=== PATIENT | female | born 1990 | race Caucasian/White ===

== ENCOUNTER 2016-12-01 10:37 | Emergency (ER) | payer OTHER ==
[~2016-12-01] VITALS: Ht 175.3 cm; Wt 115.1 kg
[2016-12-01 10:44] VITALS: TEMP 36.8; Ht 175.3 cm; Wt 115.1 kg
[2016-12-01] MEDS ORDERED: LORAZEPAM 0.5 MG TAB PO STA (10:54)
--- NOTE | 2016-12-01 11:02 | EMERGENCY ROOM VISIT NOTE ---
History Report prepared by Santana: Lena Borrego Under the Supervision of: Dr. Greer Valverde M.D. First contact with patient: 10:49 Chief Complaint: ANXIETY Stated Complaint: ANEXITY, DIZZY, SHAKING History of Present Illness The patient is a 26 year old female who presents to the Emergency Room with complaints of worsening anxiety. She reports she has been having increasing anxiety, and has run out of her Xanax since she was taking it 4 times a day, instead of the prescribed 3 times a day. She admits to last taking Xanax 3 days ago. Her primary care doctor, Dr. Pollack with [facility], could not see her today , so she states his office sent her here to the ED. She reports she does not follow with a psychiatrist because she has "been through it all before" and the last time she saw a psychiatrist was 8 years ago, when she was 18 years old. She admits to a rough childhood with having been through the foster care system when she was younger and states that is partly why she is afraid to go back to see someone, because therapy brings up bad memories. She notes her chest feels very tight like she cannot breathe because of her anxiety. She denies any recent ETOH as well any chance of being currently. 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 A total of 10 systems reviewed and were otherwise negative. Past Medical & Surgical Medical Problems: (1) Abdominal pain (2) Chest pain (3) Chest pain (4) Costochondritis (5) Costochondritis (6) Flu-like symptoms (7) Left wrist pain (8) Pain, dental (9) Urinary tract infection (10) Urinary tract infection (11) Uterine contractions at greater than 20 weeks of gestation Surgical Problems: (1) section (2) History of knee surgery (3) Hx of cholecystectomy Family History Cancer Gallbladder disease Hypertension Lung disease Social History Smoking Status: Current Every Day Smoker Alcohol Use: none Drug Use: none Marital Status: in relationship Housing Status: lives with significant other Occupation Status: employed Current/Historical Medications Scheduled Amitriptyline HCl (Amitriptyline HCl), 25 MG PO DAILY Scheduled PRN Albuterol Hfa (Ventolin Hfa), 2 PUFFS INH Q4H PRN for Cough or Wheezing Alprazolam (Alprazolam), 0.125-0.25 MG PO TID PRN for Anxiety Hydroxyzine Hcl (Atarax), 50 MG PO QID PRN for Anxiety Tramadol HCl (Tramadol HCl), 100 MG PO QID PRN for Pain Allergies Coded Allergies: Sulfa Antibiotics (Verified Allergy, Unknown, SEVERE DROWSINESS A CHILD , 11/21/16) Physical Exam Vital Signs Date Time Temp Pulse Resp B/P Pulse Ox O2 Delivery O2 Flow Rate FiO2 12/01/16 12:55 92 18 113/61 97 12/01/16 12:36 92 18 113/61 97 Room Air 12/01/16 10:44 36.8 122 18 126/85 97 Room Air Physical Exam Vital signs reviewed. General: Well-appearing 26 year old female, in no significant distress. HEENT: No scleral icterus, PERRLA, neck supple. Atraumatic. Cardiovascular: Regular rate and rhythm, no extra sounds. Pulmonary: Clear to auscultation bilaterally, normal work of breathing. Abdomen: Obese, soft, nontender, nondistended, positive bowel sounds. Musculoskeletal: Atraumatic, no peripheral edema. Neurologic: Patient awake alert and oriented x 3, full strength in all 4 extremities. Cranial nerves 2 through 12 grossly intact. Skin: Warm, dry, no rash Psychiatric: No suicidal or homicidal ideation. Medical Decision & Procedures Medications Administered Medications (Trade) Dose Ordered Sig/Ev Route Start Time Stop Time Status Last Admin Dose Admin Lorazepam (Ativan Tab) 0.5 mg NOW STAT PO 12/01/16 10:54 12/01/16 11:11 DC 12/01/16 11:06 0.5 MG Hydroxyzine HCl (Vistaril Tab) 50 mg NOW STAT PO 12/01/16 11:10 12/01/16 11:11 DC 12/01/16 11:25 50 MG Alprazolam (Xanax Tab) 0.25 mg ONE ONCE PO 12/01/16 11:30 12/01/16 11:31 DC 12/01/16 11:25 0.25 MG ED Course 1052: Past medical records reviewed. The patient was evaluated in room A6. A complete history and physical examination was performed. 1054: Ativan 0.5 mg PO. 1110: Vistaril 50 mg PO. 1130: Xanax 0.25 mg PO. 1220: I reevaluated the patient. She is feeling well. I discussed her results and discharge instructions and she verbalized complete understanding and agreement. Medical Decision Etiologies such as mood disorder, infection, hypoglycemia, electrolyte abnormalities, cardiac sources, intracerebral event, toxicologic, neurologic, as well as others were entertained. This patient was evaluated and appeared to be tearful and anxious, but in no significant distress. She was concerned about her lack of medications. She states she has been using Xanax more frequently than it is prescribed as she feels anxious. She was encouraged to see a psychiatrist, for which she was initially very resistant. The patient agreed to speak with case management. They were able to refer her as an outpatient. Patient was given Ativan 0.5 mg orally. Short while later she requested Xanax for which she was given 0.25 mg and 50 mg of Vistaril. She was advised not to drive after taking these medications. She was referred to outpatient psychiatry and will follow-up with her primary care provider for medication management. She will return to the ER for worsening of symptoms or any medical concerns. Impression Primary Impression: Anxiety Scribe Attestation The scribe's documentation has been prepared under my direction and personally reviewed by me in its entirety. I confirm that the note above accurately reflects all work, treatment, procedures, and medical decision making performed by me. Departure Information Dispostion Home / Self-Care Referrals Mickey Pollack III, M.D. (PCP) Patient Instructions A Signature Page, My [facility] Additional Instructions Diagnosis: Anxiety Follow-up with your physician as scheduled for reevaluation and medication refills. Follow-up with mental health outpatient appointment as scheduled. Return to the ER for worsening of symptoms or any medical concerns. Do not drive after receiving medications in the emergency department for at least 6 hours.
[2016-12-01] MEDS ORDERED: ALPRAZOLAM 0.25 MG TAB PO STA (11:10)
[2016-12-01] MEDS ORDERED: hydrOXYzine HCL 25 MG TAB PO STA (11:10)
[2016-12-01] MEDS ORDERED: ALPRAZOLAM 0.5 MG TAB PO ONE (11:30)
[2016-12-01 12:55] VITALS: BP 113/61; PULSE 92; O2SAT 97
[2017-01-28] MEDS ORDERED: AMT25 PO (11:01)
== END 2016-12-01 12:58 | disposition home or self-care (01) ==
LOC: C.EDB 10:39 → C.EDA 12:58
DX: F41.9 Anxiety disorder, unspecified (principal); F17.210 Nicotine dependence, cigarettes, uncomplicated; Z80.9 Family history of malignant neoplasm, unspecified; Z83.79 Family history of other diseases of the digestive system; Z83.6 Family history of other diseases of the respiratory system; Z82.49 Family history of ischemic heart disease and other diseases of the circulatory system; Z79.899 Other long term (current) drug therapy

== ENCOUNTER 2016-12-29 14:30 | Emergency (ER) | payer OTHER ==
[~2016-12-29] VITALS: Ht 175.3 cm; Wt 115.9 kg
[2016-12-29 14:34] VITALS: TEMP 36.5; Ht 175.3 cm; Wt 115.9 kg
--- NOTE | 2016-12-29 15:31 | EMERGENCY ROOM VISIT NOTE ---
History Report prepared by Santana: Lena Borrego Under the Supervision of: Dr. Greer Valverde M.D. First contact with patient: 15:20 Chief Complaint: MENTAL HEALTH EVALUATION Stated Complaint: DIZZINESS,ANXIETY History of Present Illness The patient is a 26 year old female who presents to the Emergency Room with complaints of worsening anxiety. She reports her son's parents took away custody from her today, stating she was "not involved in his life". The patient has 2 other children, who have been adopted into new homes. She does outpatient therapy for a history of anxiety and depression and was recently placed on Propranolol, of which she has taken 1 dose. She denies any recent suicidal or homicidal ideation. Her PCP is Dr. Pollack with [facility]. She reports he had been giving her a prescription for Xanax, but her insurance recently stopped paying for it, so she only has about 10 pills left. She took 1 Xanax last night , but denies taking anything today. She notes the Xanax has also "stopped working". The patient denies any recent marijuana or ETOH use. 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 A total of 10 systems reviewed and were otherwise negative. Past Medical & Surgical Medical Problems: (1) Abdominal pain (2) Chest pain (3) Chest pain (4) Costochondritis (5) Costochondritis (6) Flu-like symptoms (7) Left wrist pain (8) Pain, dental (9) Urinary tract infection (10) Urinary tract infection (11) Uterine contractions at greater than 20 weeks of gestation Surgical Problems: (1) section (2) History of knee surgery (3) Hx of cholecystectomy Family History Cancer Gallbladder disease Hypertension Lung disease Social History Smoking Status: Current Every Day Smoker Alcohol Use: none Drug Use: none Marital Status: in relationship Housing Status: lives with significant other Occupation Status: employed Current/Historical Medications Scheduled Amitriptyline HCl (Amitriptyline HCl), 25 MG PO DAILY Scheduled PRN Albuterol Hfa (Ventolin Hfa), 2 PUFFS INH Q4H PRN for Cough or Wheezing Alprazolam (Alprazolam), 0.125-0.25 MG PO TID PRN for Anxiety Hydroxyzine Hcl (Atarax), 50 MG PO QID PRN for Anxiety Tramadol HCl (Tramadol HCl), 50 MG PO QID PRN for Pain Allergies Coded Allergies: Sulfa Antibiotics (Verified Allergy, Unknown, SEVERE DROWSINESS A CHILD , 12/29/16) Physical Exam Vital Signs Date Time Temp Pulse Resp B/P Pulse Ox O2 Delivery O2 Flow Rate FiO2 12/29/16 17:25 98 16 118/78 98 12/29/16 14:34 36.5 118 19 142/72 99 Room Air Physical Exam Vital signs reviewed. General: Well-appearing, obese 20 year old female, in no significant distress. HEENT: No scleral icterus, PERRLA, neck supple. Atraumatic. Cardiovascular: Regular rate and rhythm, no extra sounds. Pulmonary: Clear to auscultation bilaterally, normal work of breathing. Abdomen: Soft, nontender, nondistended, positive bowel sounds. Musculoskeletal: Atraumatic, no peripheral edema. Neurologic: Patient awake alert and oriented x 3 Skin: Warm, dry, no rash Medical Decision & Procedures Laboratory Results 12/29/16 15:55 Red Blood Count 4.98, Mean Corpuscular Volume 80.5, Mean Corpuscular Hemoglobin 27.3, Mean Corpuscular Hemoglobin Concent 33.9, Mean Platelet Volume 9.4, Neutrophils (%) (Auto) 69.9, Lymphocytes (%) (Auto) 22.3, Monocytes (%) (Auto) 5.8, Eosinophils (%) (Auto) 1.4, Basophils (%) (Auto) 0.3, Neutrophils # (Auto) 5.59, Lymphocytes # (Auto) 1.78, Monocytes # (Auto) 0.46, Eosinophils # (Auto) 0.11, Basophils # (Auto) 0.02 12/29/16 15:55 Test 12/29/16 00:00 12/29/16 15:55 Urine Color YELLOW Urine Appearance CLEAR (CLEAR) Urine pH 6.0 (4.5-7.5) Urine Specific [place] 1.025 (1.000-1.030) Urine Protein 1+ (NEG) Urine Glucose (UA) NEG (NEG) Urine Ketones NEG (NEG) Urine Occult Blood NEG (NEG) Urine Nitrite NEG (NEG) Urine Bilirubin NEG (NEG) Urine Urobilinogen NEG (NEG) Urine Leukocyte Esterase TRACE (NEG) Urine WBC (Auto) 1-5 /hpf (0-5) Urine RBC (Auto) 0-4 /hpf (0-4) Urine Hyaline Casts (Auto) 1-5 /lpf (0-5) Urine Epithelial Cells (Auto) >30 /lpf (0-5) Urine Bacteria (Auto) NEG (NEG) Urine Opiates Screen NEG (NEG) Urine Methadone, Qualitative NEG (NEG) Urine Barbiturates NEG (NEG) Urine Phencyclidine (PCP) Level NEG (NEG) Ur Amphetamine/Methamphetamine NEG (NEG) MDMA (Ecstasy) Screen NEG (NEG) Urine Benzodiazepines Screen POS (NEG) Urine Cocaine Metabolite NEG (NEG) Urine Marijuana (THC) NEG (NEG) White Blood Count 7.98 K/uL (4.8-10.8) Red Blood Count 4.98 M/uL (4.2-5.4) Hemoglobin 13.6 g/dL (12.0-16.0) Hematocrit 40.1 % (37-47) Mean Corpuscular Volume 80.5 fL (80-100) Mean Corpuscular Hemoglobin 27.3 pg (25-34) Mean Corpuscular Hemoglobin Concent 33.9 g/dl (32-36) Platelet Count 257 K/uL (130-400) Mean Platelet Volume 9.4 fL (7.4-10.4) Neutrophils (%) (Auto) 69.9 % Lymphocytes (%) (Auto) 22.3 % Monocytes (%) (Auto) 5.8 % Eosinophils (%) (Auto) 1.4 % Basophils (%) (Auto) 0.3 % Neutrophils # (Auto) 5.59 K/uL (1.4-6.5) Lymphocytes # (Auto) 1.78 K/uL (1.2-3.4) Monocytes # (Auto) 0.46 K/uL (0.11-0.59) Eosinophils # (Auto) 0.11 K/uL (0-0.5) Basophils # (Auto) 0.02 K/uL (0-0.2) RDW Standard Deviation 41.9 fL (36.4-46.3) RDW Coefficient of Variation 14.4 % (11.5-14.5) Immature Granulocyte % (Auto) 0.3 % Immature Granulocyte # (Auto) 0.02 K/uL (0.00-0.02) Anion Gap 10.0 mmol/L (3-11) Est Creatinine Clear Calc Drug Dose 152.5 ml/min Estimated GFR () 125.5 Estimated GFR (Non- 108.3 BUN/Creatinine Ratio 15.4 (10-20) Calcium Level 8.9 mg/dl (8.5-10.1) Total Bilirubin 0.2 mg/dl (0.2-1) Direct Bilirubin < 0.1 mg/dl (0-0.2) Aspartate Amino Transf (AST/SGOT) 28 U/L (15-37) Alanine Aminotransferase (ALT/SGPT) 58 U/L (12-78) Alkaline Phosphatase 66 U/L (45-117) Total Protein 7.8 gm/dl (6.4-8.2) Albumin 3.9 gm/dl (3.4-5.0) Salicylates Level 1.7 mg/dl (2.8-20) Acetaminophen Level < 2 ug/ml (10-30) Ethyl Alcohol mg/dL < 3.0 mg/dl (0-3) Laboratory results per my review. Medications Administered Medications (Trade) Dose Ordered Sig/Ev Route Start Time Stop Time Status Last Admin Dose Admin Diphenhydramine HCl (Benadryl Cap) 50 mg NOW ONCE PO 12/29/16 15:45 12/29/16 15:46 DC 12/29/16 15:51 50 MG ED Course 1525: Past medical records reviewed. The patient was evaluated in room A8. A complete history and physical examination was performed. 1545: Benadryl 50 mg PO. 1721: Nursing informed me the patient is feeling well and has a ride coming to get her around 1600. 1730: I reevaluated the patient. She is feeling well. I discussed her results and discharge instructions and she verbalized complete understanding and agreement. Medical Decision Differential diagnosis: Etiologies such as mood disorder, infection, hypoglycemia, electrolyte abnormalities, cardiac sources, intracerebral event, toxicologic, neurologic, as well as others were entertained. This patient was evaluated and appeared to be in no significant distress. Physical examination is fairly unrevealing. Patient was given 50 mg of oral Benadryl. She was medically cleared and evaluated by the psychiatric casework specialist. Patient is not suicidal, not homicidal does desire discharge. I suspect she is having some acute on chronic anxiety related to the loss of custody of her son. Patient was discharged follow-up with her mental health counselors. She will return to the ER for worsening of symptoms or any medical concerns. Impression Primary Impression: Acute anxiety Scribe Attestation The scribe's documentation has been prepared under my direction and personally reviewed by me in its entirety. I confirm that the note above accurately reflects all work, treatment, procedures, and medical decision making performed by me. Departure Information Dispostion Home / Self-Care Referrals Mickey Pollack III, M.D. (PCP) Patient Instructions My [facility] Additional Instructions Diagnosis: Anxiety Drink plenty of fluids. Follow up with your doctor this week for reevaluation. Return to emergency for worsening of symptoms or any medical concerns.
[2016-12-29 16:06] LABS: BASO % 0.3 %; BASO ABS # 0.02 K/uL (0-0.2); COMPLETE YES; EOS % 1.4 %; HEMATOCRIT 40.1 % (37-47); IG% 0.3 %; LYMPH % 22.3 %; LYMPH ABS # 1.78 K/uL (1.2-3.4); MEAN CELL VOLUME 80.5 fL (80-100); MEAN CORPUSCULAR HEMOGLOBIN 27.3 pg (25-34); MEAN CORPUSCULAR HGB CONC 33.9 g/dl (32-36); MEAN PLATELET VOLUME 9.4 fL (7.4-10.4); MONO % 5.8 %; NEUT % 69.9 %; PLATELET COUNT 257 K/uL (130-400); RED BLOOD COUNT 4.98 M/uL (4.2-5.4); WHITE BLOOD COUNT 7.98 K/uL (4.8-10.8)
[2016-12-29 16:09] LABS: URINE APPEARANCE CLEAR (CLEAR); URINE BILIRUBIN NEG (NEG); URINE COLOR YELLOW; URINE EPITHELIAL CELL AUTO >30 /lpf (0-5); URINE NITRITE NEG (NEG); URINE SPECIFIC GRAVITY 1.025 (1.000-1.030); UROBILINOGEN NEG (NEG); ZZUR CULT IF INDIC CLEAN CATCH NO
[2016-12-29 16:10] LABS: MANUAL MICROSCOPIC REQUIRED? NO; REVIEW REQ? YES
[2016-12-29 16:28] LABS: ALT/SGPT 58 U/L (12-78); AST/SGOT 28 U/L (15-37); BLOOD UREA NITROGEN 12 mg/dl (7-18); BUN/CREATININE RATIO 15.4 (10-20); CALCIUM 8.9 mg/dl (8.5-10.1); CARBON DIOXIDE 21 mmol/L (21-32); CHLORIDE 109 mmol/L (98-107); CREATININE 0.76 mg/dl (0.60-1.20); GLUCOSE 123 mg/dl (70-99); POTASSIUM 4.2 mmol/L (3.5-5.1); SODIUM 140 mmol/L (136-145)
[2016-12-29 16:28] LABS: BENZODIAZEPINE, URINE POS (NEG); COCAINE,URINE NEG (NEG); PHENCYCLIDINE, URINE NEG (NEG)
[2016-12-29 16:32] LABS: ALKALINE PHOSPHATASE 66 U/L (45-117)
[2016-12-29 16:40] LABS: ACETAMINOPHEN < 2 ug/ml (10-30)
[2016-12-29 17:25] VITALS: BP 118/78; PULSE 98; O2SAT 98
[2017-01-02 16:00] LABS: HYDROXYETHYLFLURAZEPAM CONF NEGATIVE NG/ML (CUTOFF=50); HYDROXYMIDAZOLAM NEGATIVE NG/ML (CUTOFF=50); HYDROXYTRIAZOLAM CONF NEGATIVE NG/ML (CUTOFF=50); TEMAZEPAM CONF 56 NG/ML (CUTOFF=50)
[2017-01-28] MEDS ORDERED: AMT25 PO (11:01)
== END 2016-12-29 17:55 | disposition home or self-care (01) ==
LOC: C.EDB 14:33 → C.EDA 17:55
DX: F41.9 Anxiety disorder, unspecified (principal); F32.9 Major depressive disorder, single episode, unspecified; Z79.899 Other long term (current) drug therapy; Z87.440 Personal history of urinary (tract) infections; Z90.49 Acquired absence of other specified parts of digestive tract; F17.210 Nicotine dependence, cigarettes, uncomplicated; E66.9 Obesity, unspecified

== ENCOUNTER 2017-01-06 15:31 | Emergency (ER) | payer SELFPAY ==
[~2017-01-06] VITALS: Ht 175.3 cm; Wt 117.0 kg
[2017-01-06 15:36] VITALS: BP 120/75; PULSE 93; TEMP 36.9; O2SAT 96; Ht 175.3 cm; Wt 117.0 kg
[2017-01-06] MEDS ORDERED: HYDROCODONE/ACETAMOPHEN 5/325MG TAB PO STA (15:41)
--- NOTE | 2017-01-06 15:58 | EMERGENCY ROOM VISIT NOTE ---
ED Visit Note First contact with patient: 15:39 CHIEF COMPLAINT: Left thumb infection HISTORY of present illness: This 26-year-old female presents the ER with chief complaint of pain and swelling of the left thumb which she noticed this morning. Doesn't remember any injury to the area before it got swollen and tender. REVIEW OF SYSTEMS: 6 system review was performed and was negative unless stated otherwise in history of present illness. PMH: The patient is healthy; asthma, cholecystectomy, 3 C-sections SOCIAL HISTORY: Patient lives with her boyfriend. The patient admits to back use but denies any alcohol use. PHYSICAL EXAM: Vital Signs: Were reviewed Reviewed Nurse's notes. GEN.: 26-year -old white female appears in no acute distress. MENTAL Status: Alert and oriented 3. LEFT THUMB: There is swelling and tenderness of the nail fold around the finger. There is a small area of fluctuance. No drainage. There is no pus under the nail. There is no lymphangitic streaking up the hand. EMERGENCY COURSE: Patient was evaluated. The patient was given [place] 5/325 mg 1 pill appear for pain. The fingers prepped with Betadine. I placed the 18- gauge needle into the area with only a small amount of drainage and blood. Antibiotic ointment and a bandage was applied. The patient was given Keflex 500 mg by mouth. DIAGNOSIS: Paronychia of the left thumb DISCHARGE INSTRUCTIONS: Soak the finger in hot water 4 times a day for 20 minutes each, take Keflex 500 mg 4 times a day for 7 days. Ibuprofen 600 mg every 6 hours as needed for pain. If symptoms are not improving, follow-up with your family physician. Problem List Medical Problems: (1) Abdominal pain Status: Resolved (2) Chest pain Status: Resolved (3) Chest pain Status: Resolved (4) Costochondritis Status: Resolved (5) Costochondritis Status: Resolved (6) Flu-like symptoms Status: Resolved (7) Left wrist pain Status: Resolved (8) Pain, dental Status: Resolved (9) Urinary tract infection Status: Resolved (10) Urinary tract infection Status: Resolved Surgical Problems: (1) section Status: Resolved (2) History of knee surgery Status: Resolved (3) Hx of cholecystectomy Status: Chronic Current/Historical Medications Scheduled Amitriptyline HCl (Amitriptyline HCl), 25 MG PO DAILY Scheduled PRN Albuterol Hfa (Ventolin Hfa), 2 PUFFS INH Q4H PRN for Cough or Wheezing Alprazolam (Alprazolam), 0.125-0.25 MG PO TID PRN for Anxiety Hydroxyzine Hcl (Atarax), 50 MG PO QID PRN for Anxiety Tramadol HCl (Tramadol HCl), 50 MG PO QID PRN for Pain Allergies Coded Allergies: Sulfa Antibiotics (Verified Allergy, Unknown, SEVERE DROWSINESS A CHILD , 12/29/16) Vital Signs Date Time Temp Pulse Resp B/P Pulse Ox O2 Delivery O2 Flow Rate FiO2 01/06/17 15:36 36.9 93 16 120/75 96 Room Air Medications Administered Medications (Trade) Dose Ordered Sig/Ev Route Start Time Stop Time Status Last Admin Dose Admin Acetaminophen/ Hydrocodone Bitart ([place] 5/325 Tab) 1 tab NOW STAT PO 01/06/17 15:41 01/06/17 15:43 DC 01/06/17 15:50 1 TAB Departure Information Referrals Mickey Pollack III, M.D. (PCP) Patient Instructions My [facility]
[2017-01-06] MEDS ORDERED: CEPHALEXIN MONOHYDRATE 250 MG CAP PO ONE (16:00)
[2017-01-06] MEDS ORDERED: CEPH500C2 PO (16:00)
[2017-01-28] MEDS ORDERED: AMT25 PO (11:01)
== END 2017-01-06 16:12 | disposition home or self-care (01) ==
LOC: C.EDB 15:33 → C.EDD 16:12
DX: L03.012 Cellulitis of left finger (principal); J45.909 Unspecified asthma, uncomplicated; F17.210 Nicotine dependence, cigarettes, uncomplicated; Z79.899 Other long term (current) drug therapy

== ENCOUNTER 2017-01-12 10:28 | Emergency (ER) | payer SELFPAY ==
[~2017-01-12] VITALS: Ht 175.3 cm; Wt 120.0 kg
[~2017-01-12 10:28] MED LIST: CEPH500C2 PO
[2017-01-12 10:34] VITALS: TEMP 36.8; Ht 175.3 cm; Wt 120.0 kg
--- NOTE | 2017-01-12 11:15 | DIAGNOSTIC IMAGING REPORT ---
LEFT KNEE 3 VIEWS CLINICAL HISTORY: Left knee pain. Fall. FINDINGS: AP, crosstable lateral, and sunrise views of left knee are compared to study dated 11/21/2016. The skeletal structures are well mineralized. No fracture is seen. A surgical anchor is noted in the patella. The joint spaces of the knee are well-maintained. A small joint effusion is suspected. The overlying soft tissues are normal as imaged. IMPRESSION: 1. No acute bony abnormality is seen in the left knee. 2. Suspect a small joint effusion. A surgical anchor is again noted in the patella. Electronically signed by: Chucky Mcclain M.D. 01/12/2017 11:14 AM Dictated Date/Time: 01/12/2017 11:12 AM
[2017-01-12 12:20] VITALS: BP 130/78; PULSE 79; O2SAT 98
--- NOTE | 2017-01-12 12:53 | EMERGENCY ROOM VISIT NOTE ---
History First contact with patient: 10:44 Chief Complaint: KNEEPAIN Stated Complaint: LEFT KNEE PAIN, INTO BACK, FELL History of Present Illness The patient is a 26 year old female who presents to the Emergency Room with complaints of persistent left knee pain. The patient reports that she underwent surgery with Dr. Pradhan in 2010. The patient reports that she had a radha put in her knee. She does not know what kind of surgery she had performed. The patient reports that she has had constant pain since the surgery. She has been attempting to see another orthopedic surgeon locally, but no one will see her after looking at her records. The patient reports that she is currently looking at an evaluation at [facility] in [place]. They told the patient that she would need an MRI before they would evaluate her. She was referred by her PCP, Dr. Pollack, for further evaluation. The patient denies any recent illnesses, fevers or chills. She reports twisting her knee last night while getting out of her car. She currently denies any back pain or pain extending into the thigh, ankle or foot. She rates her discomfort a 10 out of 10. Review of Systems 10 system review was performed and was negative except for pertinent positives and negatives as indicated in history of present illness Past Medical/Surgical History Medical Problems: (1) Abdominal pain (2) Chest pain (3) Chest pain (4) Costochondritis (5) Costochondritis (6) Flu-like symptoms (7) Left wrist pain (8) Pain, dental (9) Urinary tract infection (10) Urinary tract infection (11) Uterine contractions at greater than 20 weeks of gestation Surgical Problems: (1) section (2) History of knee surgery (3) Hx of cholecystectomy Family History Cancer Gallbladder disease Hypertension Lung disease Social History Smoking Status: Current Every Day Smoker Alcohol Use: none Drug Use: none Marital Status: in relationship Housing Status: lives with significant other Occupation Status: employed Current/Historical Medications Scheduled Amitriptyline HCl (Amitriptyline HCl), 25 MG PO DAILY Scheduled PRN Albuterol Hfa (Ventolin Hfa), 2 PUFFS INH Q4H PRN for Cough or Wheezing Alprazolam (Alprazolam), 0.125-0.25 MG PO TID PRN for Anxiety Hydroxyzine Hcl (Atarax), 50 MG PO QID PRN for Anxiety Tramadol HCl (Tramadol HCl), 50 MG PO QID PRN for Pain Allergies Coded Allergies: Sulfa Antibiotics (Verified Allergy, Unknown, SEVERE DROWSINESS A CHILD , 01/12/17) Physical Exam Vital Signs Date Time Temp Pulse Resp B/P Pulse Ox O2 Delivery O2 Flow Rate FiO2 01/12/17 12:20 79 16 130/78 98 01/12/17 10:34 36.8 104 18 122/66 97 Room Air Physical Exam CONSTITUTIONAL: Healthy and well nourished. Alert and oriented X 3 with a flat affect. HEENT: Normocephalic, atraumatic. Pupils equal, round and reactive. NECK: Full active range of motion without discomfort. RESPIRATORY: Clear to auscultation bilaterally with no wheezing, crackles, rhonchi or stridor. MUSCULOSKELETAL: Examination of the left knee does not show any soft tissue edema, erythema or ecchymosis. No joint effusion appreciated. She has general tenderness to palpation about the entire knee. No popliteal masses. No tenderness to palpation about the ankle or foot. Pedal pulses are intact. INTEGUMENTARY: No rash or other significant dermatologic conditions noted. NEUROLOGIC: Left lower extremity is sensory intact. Medical Decision & Procedures ER Provider Diagnostic Interpretation: My interpretation of left knee x-rays shows a surgical anchor within the patella. A possible small joint effusion is noted. No other bony injuries, patellar subluxation/dislocation or knee malalignment noted. Radiologist report is as follows: LEFT KNEE 3 VIEWS CLINICAL HISTORY: Left knee pain. Fall. FINDINGS: AP, crosstable lateral, and sunrise views of left knee are compared to study dated 11/21/2016. The skeletal structures are well mineralized. No fracture is seen. A surgical anchor is noted in the patella. The joint spaces of the knee are well-maintained. A small joint effusion is suspected. The overlying soft tissues are normal as imaged. IMPRESSION: 1. No acute bony abnormality is seen in the left knee. 2. Suspect a small joint effusion. A surgical anchor is again noted in the patella. ED Course Patient history and physical exam were performed. Nurse's notes were reviewed. Patient was initially placed in the D pod waiting room. Initial x-rays were ordered for the knee. I was advised by the nurse that the patient called the [facility] communication center asking for pain medication. The patient underwent x- ray of the left knee, showing no acute findings. Further history was collected from the patient, who reports that no one will see her for her pain. She was asked that she has been taking a medicine for the pain, and denies. Prior hospital medical records were reviewed, showing that she is here on multiple occasions for various complaints. It is also noted that the patient is currently on our no narcotic treatment list after lying about not having prescription analgesics. Review of the [place] Prescription Drug Monitoring Program shows that she does receive monthly prescriptions for tramadol as prescribed by Dr. Pollack. The patient was advised that she would not be receiving any narcotic analgesics. The patient was asked and reports that she does have crutches at home. She was encouraged to intermittently apply ice and limit weightbearing until her symptoms improve. She was instructed to follow-up with her PCP for further management, including pain management, and tilt she follows up with [facility] orthopedics. The patient rated her discomfort an 8 out of 10 at the time of discharge. She refused any ibuprofen or Tylenol. Medical Decision Impression Primary Impression: Acute exacerbation of chronic left knee pain Departure Information Referrals Mickey Pollack III, M.D. (PCP) Patient Instructions My [facility]
[2017-01-28] MEDS ORDERED: AMT25 PO (11:01)
== END 2017-01-12 12:33 | disposition home or self-care (01) ==
LOC: C.EDB 10:29 → C.EDD 12:33
DX: M25.562 Pain in left knee (principal); G89.29 Other chronic pain; F17.200 Nicotine dependence, unspecified, uncomplicated; Z87.440 Personal history of urinary (tract) infections; Z86.19 Personal history of other infectious and parasitic diseases; Z79.899 Other long term (current) drug therapy; Z90.49 Acquired absence of other specified parts of digestive tract; Z98.890 Other specified postprocedural states; Z88.2 Allergy status to sulfonamides; Z80.9 Family history of malignant neoplasm, unspecified; Z83.79 Family history of other diseases of the digestive system; Z82.49 Family history of ischemic heart disease and other diseases of the circulatory system

== ENCOUNTER 2017-01-28 22:22 | Emergency (ER) | payer OTHER ==
[~2017-01-28] VITALS: Ht 175.3 cm; Wt 118.0 kg
[~2017-01-28 22:22] MED LIST changes: +AMT25 PO; -CEPH500C2 PO
[2017-01-28 22:24] VITALS: TEMP 37.3; Ht 175.3 cm; Wt 118.0 kg
[2017-01-28] MEDS ORDERED: ONDANSETRON INJ 2 MG/ML 2 ML VIAL IV STA (22:37)
[2017-01-28] MEDS ORDERED: MoRPHine SULFATE 10 MG/ML CARP/VIAL IV STA (22:37)
[2017-01-28] MEDS ORDERED: IBUPROFEN 600 MG TAB PO STA (22:42)
[2017-01-28 23:15] LABS: BASO % 0.3 %; BASO ABS # 0.04 K/uL (0-0.2); COMPLETE YES; EOS % 1.1 %; HEMATOCRIT 38.1 % (37-47); IG% 0.3 %; LYMPH % 19.6 %; LYMPH ABS # 2.99 K/uL (1.2-3.4); MEAN CELL VOLUME 80.2 fL (80-100); MEAN CORPUSCULAR HEMOGLOBIN 27.2 pg (25-34); MEAN CORPUSCULAR HGB CONC 33.9 g/dl (32-36); MEAN PLATELET VOLUME 9.2 fL (7.4-10.4); MONO % 5.4 %; NEUT % 73.3 %; PLATELET COUNT 271 K/uL (130-400); RED BLOOD COUNT 4.75 M/uL (4.2-5.4); WHITE BLOOD COUNT 15.26 K/uL (4.8-10.8)
[2017-01-28 23:19] LABS: INR 0.9 (0.9-1.1)
[2017-01-28 23:27] LABS: CALCIUM 8.9 mg/dl (8.5-10.1); CREATININE 0.74 mg/dl (0.60-1.20); POTASSIUM 3.8 mmol/L (3.5-5.1)
[2017-01-28 23:31] LABS: CKMB/CK RATIO 2.1 (0-3.0)
--- NOTE | 2017-01-28 23:42 | EMERGENCY ROOM VISIT NOTE ---
History First contact with patient: 22:31 Chief Complaint: CHEST PAIN Stated Complaint: DIZZY,CHEST PAIN,FEELS LIKE HEART SKIPPING,WEAK History of Present Illness The patient is a 26 year old female who is well-known to the emergency room presents today with chief complaint of chest pain. The patient states that at 10 PM last night she felt like she could not take a breath and that it felt like her heart was skipping beats. The patient states that she has had similar episodes all day long today. She states they are worse if she gets up or if she moves fast. She states it feels like she is going to pass out. She also states that she gets sharp pains in the center of her chest. The patient does admit to history of tachycardia which has been worked up in the past. The patient states she has never had a Holter monitor. The patient denies any pain in her jaw or any arm pain. She denies any nausea or vomiting. The patient denies any abdominal pain. Review of Systems 10 system review was performed and was negative unless stated otherwise history of present illness. Past Medical/Surgical History Medical Problems: (1) Abdominal pain (2) Chest pain (3) Chest pain (4) Costochondritis (5) Costochondritis (6) Flu-like symptoms (7) Left wrist pain (8) Pain, dental (9) Urinary tract infection (10) Urinary tract infection (11) Uterine contractions at greater than 20 weeks of gestation Surgical Problems: (1) section (2) History of knee surgery (3) Hx of cholecystectomy Family History Cancer Gallbladder disease Hypertension Lung disease Social History Smoking Status: Current Every Day Smoker Alcohol Use: none Drug Use: none Marital Status: in relationship Housing Status: lives with significant other Occupation Status: employed Current/Historical Medications Scheduled Amitriptyline HCl (Amitriptyline HCl), 50 MG PO HS Scheduled PRN Albuterol Hfa (Ventolin Hfa), 2 PUFFS INH Q4H PRN for Cough or Wheezing Alprazolam (Alprazolam), 0.125-0.25 MG PO TID PRN for Anxiety Hydroxyzine Hcl (Atarax), 50 MG PO QID PRN for Anxiety Tramadol HCl (Tramadol HCl), 50 MG PO TID PRN for Pain Allergies Coded Allergies: Sulfa Antibiotics (Verified Allergy, Unknown, SEVERE DROWSINESS A CHILD , 01/28/17) Physical Exam Vital Signs Date Time Temp Pulse Resp B/P Pulse Ox O2 Delivery O2 Flow Rate FiO2 01/28/17 23:18 Room Air 01/28/17 23:15 98 23 100 Room Air 01/28/17 23:13 Room Air 01/28/17 23:13 98 121/67 107 112/77 112 108/76 01/28/17 22:37 106 01/28/17 22:24 37.3 111 20 135/86 100 Room Air Physical Exam GENERAL: 26 year white female appears in no acute distress. MENTAL Status: Alert and oriented 3. EYES: PERRLA. EOMs intact. NECK: Supple, no lymphadenopathy noted. No carotid bruits noted. LUNGS: Clear auscultation without wheezes rales or rhonchi. CARDIAC: Tachycardia with a rate of 106 normal rhythm without murmur. Pulses is full and equal throughout. ABDOMEN: Positive bowel sounds all 4 quadrants. Soft, nontender to palpation without organomegaly or masses. LOWER EXTREMITIES: No cyanosis or edema noted. Calves are nontender to palpation. SKIN: Warm moist, no rashes noted Medical Decision & Procedures Laboratory Results 01/28/17 22:55 Red Blood Count 4.75, Mean Corpuscular Volume 80.2, Mean Corpuscular Hemoglobin 27.2, Mean Corpuscular Hemoglobin Concent 33.9, Mean Platelet Volume 9.2, Neutrophils (%) (Auto) 73.3, Lymphocytes (%) (Auto) 19.6, Monocytes (%) (Auto) 5.4, Eosinophils (%) (Auto) 1.1, Basophils (%) (Auto) 0.3, Neutrophils # (Auto) 11.19, Lymphocytes # (Auto) 2.99, Monocytes # (Auto) 0.82, Eosinophils # (Auto) 0.17, Basophils # (Auto) 0.04 01/28/17 22:55 Test 01/28/17 22:55 01/28/17 23:06 White Blood Count 15.26 K/uL (4.8-10.8) Red Blood Count 4.75 M/uL (4.2-5.4) Hemoglobin 12.9 g/dL (12.0-16.0) Hematocrit 38.1 % (37-47) Mean Corpuscular Volume 80.2 fL (80-100) Mean Corpuscular Hemoglobin 27.2 pg (25-34) Mean Corpuscular Hemoglobin Concent 33.9 g/dl (32-36) Platelet Count 271 K/uL (130-400) Mean Platelet Volume 9.2 fL (7.4-10.4) Neutrophils (%) (Auto) 73.3 % Lymphocytes (%) (Auto) 19.6 % Monocytes (%) (Auto) 5.4 % Eosinophils (%) (Auto) 1.1 % Basophils (%) (Auto) 0.3 % Neutrophils # (Auto) 11.19 K/uL (1.4-6.5) Lymphocytes # (Auto) 2.99 K/uL (1.2-3.4) Monocytes # (Auto) 0.82 K/uL (0.11-0.59) Eosinophils # (Auto) 0.17 K/uL (0-0.5) Basophils # (Auto) 0.04 K/uL (0-0.2) RDW Standard Deviation 42.4 fL (36.4-46.3) RDW Coefficient of Variation 14.4 % (11.5-14.5) Immature Granulocyte % (Auto) 0.3 % Immature Granulocyte # (Auto) 0.05 K/uL (0.00-0.02) Prothrombin Time 10.0 SECONDS (9.0-12.0) Prothromb Time International Ratio 0.9 (0.9-1.1) Activated Partial Thromboplast Time 26.5 SECONDS (21.0-31.0) Partial Thromboplastin Ratio 1.0 Anion Gap 11.0 mmol/L (3-11) Est Creatinine Clear Calc Drug Dose 158.1 ml/min Estimated GFR () 129.6 Estimated GFR (Non- 111.8 BUN/Creatinine Ratio 23.0 (10-20) Calcium Level 8.9 mg/dl (8.5-10.1) Total Creatine Kinase 42 U/L (26-192) Creatine Kinase MB 0.9 ng/ml (0.5-3.6) Creatine Kinase MB Ratio 2.1 (0-3.0) Bedside D-Dimer 231 ng/mlFEU (0-450) Bedside Troponin I 0.000 ng/ml (0-0.045) Medications Administered Medications (Trade) Dose Ordered Sig/Ev Route Start Time Stop Time Status Last Admin Dose Admin Ibuprofen (Motrin Tab) 600 mg NOW STAT PO 01/28/17 22:42 01/28/17 22:44 DC 01/28/17 23:17 600 MG ECG Indication: chest pain Rhythm: sinus tachycardia Findings: no acute ischemic change ED Course The patient was evaluated. The patient was placed on a monitor and continuous pulse ox. IV access was obtained. EKG was ordered and interpreted as above with sinus tachycardia at a rate of [address] changes noted. CBC and differential, renal profile, LFTs and lipase levels were ordered. CK-MB, coags , pointing care d-dimer and troponin were ordered. Labs are reviewed. The patient's white count was elevated at 14,000 otherwise labs are unremarkable. Pointing care d-dimer was 231 which was normal. [id number] troponin was 0.. Orthostatic vitals were ordered. Chest x-ray was ordered and interpreted by myself without any acute findings.. This will later be interpreted by the radiologist. The patient was given Motrin 600 mg by mouth for pain. The patient's EMR was reviewed. The patient is on a no narcotic list for the emergency room. The patient's case was discussed with Dr. Baron who agree with treatment plan. The patient was informed of all findings and discharged home in stable condition. Medical Decision Differential diagnosis include acute PR, dysrhythmia, tachycardia, acute PE, pneumonia, GERD Impression Primary Impression: CHEST PAIN, UNSPECIFIED Additional Impressions: TACHYCARDIA, UNSPECIFIED Leukocytosis Departure Information Dispostion Home / Self-Care Condition GOOD Referrals Mickey Pollack III, M.D. (PCP) Forms HOME CARE DOCUMENTATION FORM, IMPORTANT VISIT INFORMATION Patient Instructions Chest Pain - [facility], [facility] Additional Instructions If you experience any severe chest pain, shortness of breath, diaphoresis return to the ER immediately. Tylenol and/or ibuprofen as needed for pain. Limit caffeine products. Follow-up with your family doctor in 2 days or recheck and possible cardiac Holter monitoring. Also may want to repeat CBC to evaluate leukocytosis Problem Qualifiers Additional Impressions: Leukocytosis Leukocytosis type: unspecified Qualified Codes: D72.829 - Elevated white blood cell count, unspecified
[2017-01-28 23:56] VITALS: BP 122/72; PULSE 95; O2SAT 100
--- NOTE | 2017-01-29 06:48 | DIAGNOSTIC IMAGING REPORT ---
CHEST 2 VIEWS ROUTINE CLINICAL HISTORY: Atypical chest pain COMPARISON STUDY: 11/07/2016 FINDINGS: The cardiac and mediastinal contours are normal. There is no evidence of focal pulmonary consolidation. There is no evidence of failure. No pleural effusions are visualized.[ IMPRESSION: No active disease in the chest. Electronically signed by: Rolly Stock M.D. 01/29/2017 6:47 AM Dictated Date/Time: 01/29/2017 6:47 AM
== END 2017-01-28 23:57 | disposition home or self-care (01) ==
LOC: C.EDB 22:23 → C.EDA 23:57
DX: R07.9 Chest pain, unspecified (principal); R00.0 Tachycardia, unspecified; D72.829 Elevated white blood cell count, unspecified; F17.200 Nicotine dependence, unspecified, uncomplicated; Z87.440 Personal history of urinary (tract) infections; Z98.891 History of uterine scar from previous surgery; Z98.890 Other specified postprocedural states; Z90.49 Acquired absence of other specified parts of digestive tract

== ENCOUNTER 2017-02-01 22:14 | Emergency (ER) | payer OTHER ==
[~2017-02-01] VITALS: Ht 170.2 cm; Wt 119.0 kg
[2017-02-01 22:22] VITALS: TEMP 36.9; Ht 170.2 cm; Wt 119.0 kg
[2017-02-01] MEDS ORDERED: AMOXICILLIN 250 MG CAP PO STA (22:49)
[2017-02-01] MEDS ORDERED: AMOX500C3 PO (23:10)
--- NOTE | 2017-02-01 23:10 | EMERGENCY ROOM VISIT NOTE ---
ED Visit Note First contact with patient: 22:24 CHIEF COMPLAINT: Earache HISTORY OF PRESENT ILLNESS: This 26-year-old female presents to the emergency department and states they have had an earache for one day. The patient reports pain in both ears which is worse in the right ear. The patient reports that she is having difficulty hearing in her right ear. She also reports chest congestion and cough. She reports that she had a fever of 101.7F today. She has been taking ibuprofen and Tylenol without relief. She rates his discomfort an 8/10. The patient is a smoker. She reports that both of her children have been sick recently. The patient called her primary care provider and has appointment next week. She denies any vomiting, diarrhea, sore throat, headache or neck pain. REVIEW OF SYSTEMS: A 6 system review of systems was completed with positives and pertinent negatives listed in the HPI. ALLERGIES: Sulfa Antibiotics MEDICATIONS: See med list. PMH: Asthma. Immunizations are up to date. SH: The patient lives locally with family. She is a smoker. PHYSICAL EXAM: Vital Signs: Reviewed Nurse's notes, temperature 36.9C orally. GENERAL: This is a 26-year-old female, in no acute distress, well-developed, well-nourished. SKIN: Normal. HEART: Regular rate and rhythm without murmurs gallops or rubs. LUNGS: Clear to auscultation and breath sounds equal, no wheezes, rales, or rhonchi. MOUTH: The pharynx is not inflamed and the tonsils are not enlarged. The airway is patent. EARS: The right tympanic membrane is mildly erythematous and bulging. The right external auditory canal is clear with no tragus tenderness. The left tympanic membrane is pearly mack without erythema or effusion. The left external auditory canal is clear. LYMPH: There is no lymphadenopathy. ED COURSE: I examined the patient. The patient does appear to have a mild otitis media of the right ear. She was given a dose of amoxicillin and a prescription for the full course. She was instructed to follow-up with her primary care provider. I was later informed by the nurse that the patient was requesting pain medication. I did explain to the patient that I did not feel narcotic pain medication was indicated for an ear infection. Additionally, the patient is on a no narcotic prescription treatment plan due to lying about prescriptions in the past. The patient was informed of this and reported that she had never been told this information, although the patient's records does state that during her visit on 01/12/17, she was reminded of her status on the treatment plan. The patient requested to speak with my attending and Dr. De Jesus explained to the patient that she will not be receiving any narcotic prescriptions for narcotic medications here. The patient was discharged home in good condition to follow up with her primary care provider. DIAGNOSIS: Acute otitis media of the right ear Problem List Medical Problems: (1) Abdominal pain Status: Resolved (2) Chest pain Status: Resolved (3) Chest pain Status: Resolved (4) Costochondritis Status: Resolved (5) Costochondritis Status: Resolved (6) Flu-like symptoms Status: Resolved (7) Left wrist pain Status: Resolved (8) Pain, dental Status: Resolved (9) Urinary tract infection Status: Resolved (10) Urinary tract infection Status: Resolved Surgical Problems: (1) section Status: Resolved (2) History of knee surgery Status: Resolved (3) Hx of cholecystectomy Status: Chronic Current/Historical Medications Scheduled Amitriptyline HCl (Amitriptyline HCl), 50 MG PO HS Amoxicillin (Amoxil), 1 CAP PO TID Scheduled PRN Albuterol Hfa (Ventolin Hfa), 2 PUFFS INH Q4H PRN for Cough or Wheezing Alprazolam (Alprazolam), 0.125-0.25 MG PO TID PRN for Anxiety Hydroxyzine Hcl (Atarax), 50 MG PO QID PRN for Anxiety Tramadol HCl (Tramadol HCl), 50 MG PO TID PRN for Pain Allergies Coded Allergies: Sulfa Antibiotics (Verified Allergy, Unknown, SEVERE DROWSINESS A CHILD , 01/28/17) Vital Signs Date Time Temp Pulse Resp B/P Pulse Ox O2 Delivery O2 Flow Rate FiO2 02/01/17 23:25 91 20 126/87 97 02/01/17 22:22 36.9 101 16 121/69 96 Room Air Medications Administered Medications (Trade) Dose Ordered Sig/Ev Route Start Time Stop Time Status Last Admin Dose Admin Amoxicillin (Amoxil Cap) 500 mg NOW STAT PO 02/01/17 22:49 02/01/17 22:55 DC 02/01/17 23:19 500 MG Departure Information Impression Primary Impression: Right otitis media Dispostion Home / Self-Care Condition GOOD Prescriptions Amoxicillin (AMOXIL) 500 Mg Cap 1 CAP PO TID for 10 Days, #30 CAP Prov: Lona Loera ., DEVI 02/01/17 Referrals Mickey Pollack III, M.D. (PCP) Patient Instructions My [facility] Additional Instructions You have been treated in the Emergency Department for an Inner Ear Infection ( Otitis Media). You were prescribed amoxicillin to be taken as prescribed. This is an antibiotic. All antibiotics have the potential to cause diarrhea. Stop this medication and contact a medical provider if you were to develop any significant adverse side effects including: wheezing, shortness of breath, passing out, vomiting, or a diffuse rash. Always take antibiotics as directed and COMPLETE the ENTIRE course regardless of the improvement of your symptoms. For pain and fever control, you can use the following [id number] medicines (if >12 yo): - Regular strength (325mg/tab) Tylenol (acetaminophen) 2 tabs every 4-6 hours as needed. Do not exceed 12 tablets in a 24 hour period. Avoid taking more than 4 grams (4000 mg) of Tylenol per day. This includes any other sources of acetaminophen you may take on a regular basis. - Regular strength (200 mg/tab) Advil (ibuprofen) 1-2 tabs every 4-6 hours as needed. Do not exceed a dose of 3200 mg per day. You should follow-up with your Primary Care Provider from today's Emergency Department visit. Return to the emergency department if you develop the following symptoms despite treatment course outlined above: headache, fever, intractable pain, increased redness, swelling, or purulent discharge. Problem Qualifiers Primary Impression: Right otitis media
[2017-02-01 23:25] VITALS: BP 126/87; PULSE 91; O2SAT 97
--- NOTE | 2017-02-01 23:49 | EMERGENCY ROOM VISIT NOTE ---
ED Visit Note First contact with patient: 22:24 Staff note: I have reviewed the Patients chart and have discussed this case with my PA. I generally agree with the ED note and findings.
== END 2017-02-01 23:27 | disposition home or self-care (01) ==
LOC: C.EDB 22:15
DX: H66.91 Otitis media, unspecified, right ear (principal); J45.909 Unspecified asthma, uncomplicated; F17.200 Nicotine dependence, unspecified, uncomplicated; Z86.19 Personal history of other infectious and parasitic diseases; Z87.440 Personal history of urinary (tract) infections; Z98.890 Other specified postprocedural states; Z88.2 Allergy status to sulfonamides

== ENCOUNTER 2017-02-26 14:52 | Emergency (ER) | payer OTHER ==
[~2017-02-26] VITALS: Ht 175.3 cm; Wt 118.0 kg
[2017-02-26 14:54] VITALS: TEMP 36.7; Ht 175.3 cm; Wt 118.0 kg
[2017-02-26] MEDS ORDERED: LORAZEPAM 1 MG TAB SL STA (15:14)
--- NOTE | 2017-02-26 15:21 | EMERGENCY ROOM VISIT NOTE ---
History First contact with patient: 15:03 Chief Complaint: ANXIETY Stated Complaint: PANIC ATTACK - SOB History of Present Illness The patient is a 26 year old female who presents to the Emergency Room via private vehicle with complaints of "panic attack, shortness of breath". The patient states that she was in room 108, in the ICU with her father when medical staff presented the results of certain tests. She states they were poor results, and her father will likely not live much longer. She states she merely felt dizzy, as if she was going to pass out. She then developed a tightness in her chest followed by shortness of breath. She states that she then left the room, and came down here for treatment. She denies taking any medications today or any illegal substances. She states she does have a history of anxiety with anxiety attacks. She believe this is different from previous because she feels this is a really bad anxiety attack. She at this time denies any history of pulmonary embolus or blood clots and denies thoughts to harm herself or others. Review of Systems A complete 10-point Review of Systems was discussed with the patient, with pertinent positives and negatives listed in the History of Present Illness. All remaining Review of Systems questions can be considered negative unless otherwise specified. Past Medical/Surgical History Medical Problems: (1) Abdominal pain (2) Chest pain (3) Chest pain (4) Costochondritis (5) Costochondritis (6) Flu-like symptoms (7) Left wrist pain (8) Pain, dental (9) Urinary tract infection (10) Urinary tract infection (11) Uterine contractions at greater than 20 weeks of gestation Surgical Problems: (1) section (2) History of knee surgery (3) Hx of cholecystectomy Family History Cancer Gallbladder disease Hypertension Lung disease Social History Smoking Status: Current Every Day Smoker Alcohol Use: none Drug Use: none Marital Status: in relationship Housing Status: lives with significant other Occupation Status: employed Current/Historical Medications Scheduled Amitriptyline HCl (Amitriptyline HCl), 50 MG PO HS Scheduled PRN Albuterol Hfa (Ventolin Hfa), 2 PUFFS INH Q4H PRN for Cough or Wheezing Alprazolam (Alprazolam), 0.125-0.25 MG PO TID PRN for Anxiety Hydroxyzine Hcl (Atarax), 50 MG PO QID PRN for Anxiety Tramadol HCl (Tramadol HCl), 50 MG PO TID PRN for Pain Allergies Coded Allergies: Sulfa Antibiotics (Verified Allergy, Unknown, SEVERE DROWSINESS A CHILD , 02/26/17) Physical Exam Vital Signs Date Time Temp Pulse Resp B/P Pulse Ox O2 Delivery O2 Flow Rate FiO2 02/26/17 18:22 115 20 130/76 96 Room Air 02/26/17 16:50 101 20 106/74 96 Room Air 02/26/17 16:12 106 02/26/17 15:46 96 Room Air 02/26/17 14:54 36.7 114 24 123/74 99 Room Air Physical Exam VITAL SIGNS - Vital signs and nursing notes were reviewed. The patient is afebrile, normotensive, tachycardic at a rate of 114 bpm, with respiratory rate 24 and is saturating well on room air 99%. GENERAL -26-year-old female appearing her stated age who is sitting upright in bed, and does appear to be experiencing anxiety. She has a Ventolin inhaler in her mouth that she is using. She merely requests something to work fast for her anxiety, she states she cannot wait 30 minutes for the tablet to work. Communicates well with provider and answers questions appropriately. SKIN - Without rashes. No evidence of self-harm or injury to the body. HEAD - NC/AT. EYES - PERRL with EOMI bilaterally. Sclera anicteric. Palpebral conjunctiva pink and moist with no injection noted. EARS - No deformities of external structures noted on gross examination bilaterally. No pain elicited with palpation of the tragus bilaterally. External auditory canals without discharge or otorrhea. Tympanic membranes pearly mack without retraction or bulging. No fluid or purulent material visualized behind the TM. Handle of malleus, umbo, cone of light, pars tensa/ flaccid all easily visualized. NOSE - Midline and without cyanosis. No epistaxis or purulent drainage noted. Septum midline without deviation or septal hematoma noted. MOUTH/OROPHARYNX - Without perioral cyanosis. Buccal mucosa pink and moist and without leukoplakia. Tongue midline with equal elevation of palate bilaterally. No tonsillar hypertrophy, erythema, or exudates noted. Fair dentition noted. The airway is not obstructed. NECK - Neck with FROM. Supple to palpation. No lymphadenopathy noted. No nuchal rigidity. No evidence of injury to the neck. LUNGS - Chest wall symmetric without accessory muscle use, intercostals retractions, or central cyanosis. Normal vesicular breath sounds CTA B/L. No wheezes, rales, or rhonchi appreciated. CARDIAC - RRR with S1/S2. No murmur, rubs, or gallops appreciated. EXTREMITIES - No clubbing or peripheral cyanosis. No pretibial edema present. The extremities are without visible or palpable injury. +5/5 strength noted in UE/LE bilaterally. NEUROLOGIC - Cranial nerves II through XII grossly intact. Sensory intact to light touch throughout. PSYCH - A&Ox3 and cooperates fully with examiner. Pt is very pleasant and interacts well with examiner. Medical Decision & Procedures ER Provider Diagnostic Interpretation: [~ rep ct add3]] CHEST ONE VIEW PORTABLE HISTORY: Short of breath. Dyspnea COMPARISON: Chest 01/28/2017. FINDINGS: The lungs are clear. Cardiac silhouette is normal in size. No pleural effusions. No pneumothorax. IMPRESSION: No acute process. Electronically signed by: Yunior Mariano M.D. 02/26/2017 3:42 PM Dictated Date/Time: 02/26/2017 3:41 PM Laboratory Results 02/26/17 16:40 Red Blood Count 4.63, Mean Corpuscular Volume 81.2, Mean Corpuscular Hemoglobin 27.2, Mean Corpuscular Hemoglobin Concent 33.5, Mean Platelet Volume 9.5, Neutrophils (%) (Auto) 54.1, Lymphocytes (%) (Auto) 37.6, Monocytes (%) (Auto) 5.5, Eosinophils (%) (Auto) 2.0, Basophils (%) (Auto) 0.4, Neutrophils # (Auto) 4.54, Lymphocytes # (Auto) 3.15, Monocytes # (Auto) 0.46, Eosinophils # (Auto) 0.17, Basophils # (Auto) 0.03 02/26/17 16:40 Test 02/26/17 16:40 White Blood Count 8.38 K/uL (4.8-10.8) Red Blood Count 4.63 M/uL (4.2-5.4) Hemoglobin 12.6 g/dL (12.0-16.0) Hematocrit 37.6 % (37-47) Mean Corpuscular Volume 81.2 fL (80-100) Mean Corpuscular Hemoglobin 27.2 pg (25-34) Mean Corpuscular Hemoglobin Concent 33.5 g/dl (32-36) Platelet Count 231 K/uL (130-400) Mean Platelet Volume 9.5 fL (7.4-10.4) Neutrophils (%) (Auto) 54.1 % Lymphocytes (%) (Auto) 37.6 % Monocytes (%) (Auto) 5.5 % Eosinophils (%) (Auto) 2.0 % Basophils (%) (Auto) 0.4 % Neutrophils # (Auto) 4.54 K/uL (1.4-6.5) Lymphocytes # (Auto) 3.15 K/uL (1.2-3.4) Monocytes # (Auto) 0.46 K/uL (0.11-0.59) Eosinophils # (Auto) 0.17 K/uL (0-0.5) Basophils # (Auto) 0.03 K/uL (0-0.2) RDW Standard Deviation 42.8 fL (36.4-46.3) RDW Coefficient of Variation 14.3 % (11.5-14.5) Immature Granulocyte % (Auto) 0.4 % Immature Granulocyte # (Auto) 0.03 K/uL (0.00-0.02) Anion Gap 11.0 mmol/L (3-11) Est Creatinine Clear Calc Drug Dose 160.3 ml/min Estimated GFR () 131.7 Estimated GFR (Non- 113.7 BUN/Creatinine Ratio 18.9 (10-20) Calcium Level 8.9 mg/dl (8.5-10.1) Magnesium Level 1.7 mg/dl (1.8-2.4) Total Bilirubin 0.1 mg/dl (0.2-1) Aspartate Amino Transf (AST/SGOT) 33 U/L (15-37) Alanine Aminotransferase (ALT/SGPT) 70 U/L (12-78) Alkaline Phosphatase 64 U/L (45-117) Troponin I < 0.015 ng/ml (0-0.045) Total Protein 7.5 gm/dl (6.4-8.2) Albumin 3.9 gm/dl (3.4-5.0) Globulin 3.6 gm/dl (2.5-4.0) Albumin/Globulin Ratio 1.1 (0.9-2) Thyroid Stimulating Hormone (TSH) 1.230 uIu/ml (0.300-4.500) Salicylates Level < 1.7 mg/dl (2.8-20) Acetaminophen Level < 2 ug/ml (10-30) Medications Administered Medications (Trade) Dose Ordered Sig/Ev Route Start Time Stop Time Status Last Admin Dose Admin Lorazepam (Ativan Tab) 1 mg NOW STAT SL 02/26/17 15:14 02/26/17 15:15 DC 02/26/17 15:32 1 MG Hydroxyzine HCl (Vistaril Tab) 50 mg NOW STAT PO 02/26/17 17:05 02/26/17 17:07 DC 02/26/17 17:10 50 MG Medical Decision The patient was seen and evaluated as above. After obtaining a thorough history and physical examination I did try to verbally de-escalate the situation with the patient. She then began to calm down as I asked her questions. I thoroughly reviewed her previous history. She has been here for similar episodes in the past. Given the situation, it is certainly reasonable that the patient is likely experiencing an acute panic/anxiety attack. Although she is on our no narcotic list at this time, I do believe that given the situation, I can repeat a dose that she was given recently for anxiety, which is Ativan sublingually. I did not want establish IV access given the situation therefore performed a straight blood draw. The above workup was performed. She denied any thoughts to harm herself or others. She denies any history of pulmonary embolus. Her vital signs are stable, she is saturating well. Workup will focus around the anxiety attack however the emergent other potential causes will certainly be entertained. In review of her blood work, CBC reveals no leukocytosis or anemia. CMP reveals no significant abnormality. Magnesium low at 1.7, total bilirubin low at 0.1. Troponin is negative. TSH is within normal limits. Salicylate and acetaminophen levels both noncontributory. Chest 1 view unremarkable. Results as above. Patient was not able to provide urine. She denied thoughts to harm self or others. From my medical judgment, she does not appear to be a threat to self, or others. She does not meet criteria for 302. I do not believe that she needs inpatient management. The nurse taking care of the patient came to me and stated the patient would like to leave to be with her father. The patient states that she received a text message stating that her father was not doing well and she wanted to be with him during his final time here on her. It was verified that the father was indeed in the ICU. I do believe this is reasonable. She was educated upon today's findings, her EKG reveals sinus tachycardia, with nonspecific ST segment changes. There was no evidence at this time for ST segment elevation or depression in any specific leads. With negative troponin I find any cardiac causes very unlikely. It appears the patient is experiencing acute anxiety, with potential acute adjustment disorder secondary to her father's poor health condition. She was in the ICU with her father today , and then came here after hearing results. She would like to go back to her father during this time. I discussed the case with my attending and believe this is appropriate. She was given 50 mg of Atarax additionally. She had minimal relief of her symptoms but states she would like to go be with her father. She was then prepared for discharge, and discharged to be with her father. I again at this time do not believe she is a threat to self or others. In evaluation treatment this patient the following differential diagnoses were entertained: Good abuse, suicidal ideation, homicidal ideation, acute anxiety, adjustment disorder, among others. Impression Primary Impression: Acute anxiety Additional Impression: Acute adjustment disorder Departure Information Dispostion Home / Self-Care Condition GOOD Referrals Mickey Pollack III, M.D. (PCP) Patient Instructions My [facility] Additional Instructions You were seen in the emergency department for chest pain, difficulty breathing and anxiety. As per your request you are being discharged. It is recommended you have your magnesium and bilirubin repeated with your family doctor. Please return to the emergency department with any new/concerning symptoms. Problem Qualifiers
--- NOTE | 2017-02-26 15:44 | DIAGNOSTIC IMAGING REPORT ---
CHEST ONE VIEW PORTABLE HISTORY: Short of breath. Dyspnea COMPARISON: Chest 01/28/2017. FINDINGS: The lungs are clear. Cardiac silhouette is normal in size. No pleural effusions. No pneumothorax. IMPRESSION: No acute process. Electronically signed by: Yunior Mariano M.D. 02/26/2017 3:42 PM Dictated Date/Time: 02/26/2017 3:41 PM
[2017-02-26 15:46] VITALS: O2SAT 96
[2017-02-26 16:47] LABS: BASO % 0.4 %; BASO ABS # 0.03 K/uL (0-0.2); COMPLETE YES; HEMATOCRIT 37.6 % (37-47); IG% 0.4 %; LYMPH % 37.6 %; LYMPH ABS # 3.15 K/uL (1.2-3.4); MEAN CELL VOLUME 81.2 fL (80-100); MEAN CORPUSCULAR HEMOGLOBIN 27.2 pg (25-34); MEAN CORPUSCULAR HGB CONC 33.5 g/dl (32-36); MEAN PLATELET VOLUME 9.5 fL (7.4-10.4); MONO % 5.5 %; NEUT % 54.1 %; PLATELET COUNT 231 K/uL (130-400); RED BLOOD COUNT 4.63 M/uL (4.2-5.4); WHITE BLOOD COUNT 8.38 K/uL (4.8-10.8)
[2017-02-26] MEDS ORDERED: hydrOXYzine HCL 25 MG TAB PO STA (17:05)
[2017-02-26 17:06] LABS: ALT/SGPT 70 U/L (12-78); BLOOD UREA NITROGEN 14 mg/dl (7-18); BUN/CREATININE RATIO 18.9 (10-20); CALCIUM 8.9 mg/dl (8.5-10.1); CARBON DIOXIDE 23 mmol/L (21-32); CHLORIDE 107 mmol/L (98-107); CREATININE 0.73 mg/dl (0.60-1.20); GLUCOSE 133 mg/dl (70-99); MAGNESIUM 1.7 mg/dl (1.8-2.4); POTASSIUM 3.6 mmol/L (3.5-5.1); SODIUM 141 mmol/L (136-145)
[2017-02-26 17:12] LABS: ACETAMINOPHEN < 2 ug/ml (10-30)
[2017-02-26 17:16] LABS: ALB/GLOB RATIO 1.1 (0.9-2); ALKALINE PHOSPHATASE 64 U/L (45-117); AST/SGOT 33 U/L (15-37)
[2017-02-26 18:22] VITALS: BP 130/76; PULSE 115; O2SAT 96
== END 2017-02-26 18:24 | disposition home or self-care (01) ==
LOC: C.EDB 14:53 → C.EDA 18:24
DX: F41.9 Anxiety disorder, unspecified (principal); F43.20 Adjustment disorder, unspecified; F17.200 Nicotine dependence, unspecified, uncomplicated

== ENCOUNTER 2017-03-03 13:01 | Emergency (ER) | payer OTHER ==
[~2017-03-03] VITALS: Ht 175.3 cm; Wt 118.6 kg
[2017-03-03 13:05] VITALS: TEMP 36.7; Ht 175.3 cm; Wt 118.6 kg
[2017-03-03] MEDS ORDERED: ALPRAZOLAM 0.25 MG TAB PO STA (14:13)
--- NOTE | 2017-03-03 14:28 | EMERGENCY ROOM VISIT NOTE ---
History Report prepared by Santana: Alejandro Mathur Under the Supervision of: Dr. Isaías Smith M.D. First contact with patient: 14:06 Chief Complaint: ANXIETY Stated Complaint: CHEST HURTING PLUS WEIRD HEART BEATS History of Present Illness The patient is a 26 year old female who presents to the Emergency Room with complaints of worsening anxiety beginning several days prior to arrival. The patient currently rates her discomfort as a 9/10 in severity. She states she was here last week because her dad had stopped breathing in front of her. The patient notes her father was brain and they had to let him go. She states she has been under a lot of stress with regards to her father's and being homeless. The patient notes she takes Xanax for her anxiety three times a day. She states her chest feels like it is "caving in", and she has the feeling that someone scared her at all times. She also associates dizziness and body trembles with today's symptoms. The patient notes she has issues with an elevated heart rate and arrhythmia. She states she was supposed to have a heart monitor but has not had it done. The patient notes she did not take her Xanax this morning, but she called her doctor, whose nurse referred the patient to the ED today. She denies drug or alcohol use. She denies nausea, vomiting, diarrhea, pain or swelling in the calves, thyroid issues, and chance of . The patient states she has never been admitted for her anxiety. 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 Review of Systems See HPI for pertinent positives & negatives. A total of 10 systems reviewed and were otherwise negative. Past Medical & Surgical Medical Problems: (1) Abdominal pain (2) Chest pain (3) Chest pain (4) Costochondritis (5) Costochondritis (6) Flu-like symptoms (7) Left wrist pain (8) Pain, dental (9) Urinary tract infection (10) Urinary tract infection (11) Uterine contractions at greater than 20 weeks of gestation Surgical Problems: (1) section (2) History of knee surgery (3) Hx of cholecystectomy Old medical records were reviewed. Nurse's notes were reviewed and I agree with. Family History Cancer Gallbladder disease Hypertension Lung disease Social History Smoking Status: Current Every Day Smoker Alcohol Use: none Drug Use: none Marital Status: in relationship Housing Status: lives with significant other Occupation Status: employed Current/Historical Medications Scheduled Amitriptyline HCl (Amitriptyline HCl), 50 MG PO HS Scheduled PRN Albuterol Hfa (Ventolin Hfa), 2 PUFFS INH Q4H PRN for Cough or Wheezing Alprazolam (Alprazolam), 0.125-0.25 MG PO TID PRN for Anxiety Hydroxyzine Hcl (Atarax), 50 MG PO QID PRN for Anxiety Tramadol HCl (Tramadol HCl), 50 MG PO TID PRN for Pain Allergies Coded Allergies: Sulfa Antibiotics (Verified Allergy, Unknown, SEVERE DROWSINESS A CHILD , 03/03/17) Physical Exam Vital Signs Date Time Temp Pulse Resp B/P Pulse Ox O2 Delivery O2 Flow Rate FiO2 03/03/17 16:35 96 18 119/72 95 03/03/17 14:54 102 20 123/86 97 Room Air 03/03/17 13:05 36.7 117 20 121/83 98 Room Air Physical Exam General: Non-ill appearing. Young female. No acute distress. HEENT: Normal cephalic atraumatic. Pupils are equal round and reactive to light. Sclerae anicteric. Extraocular movements are intact. Oropharynx is pink with moist mucous membranes. No swelling of the mouth lips or tongue. Neck: Supple with a midline trachea. No meningeal signs or stiffness, no JVD or bruits. No Stridor. Chest: Clear to auscultation bilaterally. No wheezes or rhonchi. No increased work of breathing. Heart: regular rate and rhythm. Abdomen: Soft nontender, nondistended without rebound guarding or rigidity. Extremities: No cyanosis clubbing or edema. No calf tenderness or assymetry Spine/Back. Non tender to palpation. No CVA tenderness Skin: Good turgor without rashes. Neurologic exam: Cranial nerves two through 12 are intact. Motor and sensation are intact and symmetrical throughout. Psych: Normal thought process and affect. No suicidal or homicidal ideation. Medical Decision & Procedures ER Provider Diagnostic Interpretation: X-ray results as stated below per interpretation by me and the radiologist: CHEST ONE VIEW PORTABLE CLINICAL HISTORY: Atypical chest pain and shortness of breath COMPARISON STUDY: 02/26/2017 FINDINGS: The cardiac and mediastinal contours are normal. There is no evidence of focal pulmonary consolidation. There is no evidence of failure. No pleural effusions are visualized.[ IMPRESSION: No active disease in the chest. Electronically signed by: Rolly Stock M.D. 03/03/2017 2:34 PM Laboratory Results 03/03/17 14:40 Red Blood Count 4.48, Mean Corpuscular Volume 79.2, Mean Corpuscular Hemoglobin 27.2, Mean Corpuscular Hemoglobin Concent 34.4, Mean Platelet Volume 9.2, Neutrophils (%) (Auto) 61.8, Lymphocytes (%) (Auto) 28.2, Monocytes (%) (Auto) 7.0, Eosinophils (%) (Auto) 2.4, Basophils (%) (Auto) 0.3, Neutrophils # (Auto) 5.87, Lymphocytes # (Auto) 2.68, Monocytes # (Auto) 0.67, Eosinophils # (Auto) 0.23, Basophils # (Auto) 0.03 03/03/17 14:40 Test 03/03/17 14:40 03/03/17 14:48 White Blood Count 9.51 K/uL (4.8-10.8) Red Blood Count 4.48 M/uL (4.2-5.4) Hemoglobin 12.2 g/dL (12.0-16.0) Hematocrit 35.5 % (37-47) Mean Corpuscular Volume 79.2 fL (80-100) Mean Corpuscular Hemoglobin 27.2 pg (25-34) Mean Corpuscular Hemoglobin Concent 34.4 g/dl (32-36) Platelet Count 248 K/uL (130-400) Mean Platelet Volume 9.2 fL (7.4-10.4) Neutrophils (%) (Auto) 61.8 % Lymphocytes (%) (Auto) 28.2 % Monocytes (%) (Auto) 7.0 % Eosinophils (%) (Auto) 2.4 % Basophils (%) (Auto) 0.3 % Neutrophils # (Auto) 5.87 K/uL (1.4-6.5) Lymphocytes # (Auto) 2.68 K/uL (1.2-3.4) Monocytes # (Auto) 0.67 K/uL (0.11-0.59) Eosinophils # (Auto) 0.23 K/uL (0-0.5) Basophils # (Auto) 0.03 K/uL (0-0.2) RDW Standard Deviation 40.3 fL (36.4-46.3) RDW Coefficient of Variation 14.1 % (11.5-14.5) Immature Granulocyte % (Auto) 0.3 % Immature Granulocyte # (Auto) 0.03 K/uL (0.00-0.02) Anion Gap 4.0 mmol/L (3-11) Est Creatinine Clear Calc Drug Dose 133.3 ml/min Estimated GFR () 105.1 Estimated GFR (Non- 90.7 BUN/Creatinine Ratio 17.5 (10-20) Calcium Level 8.8 mg/dl (8.5-10.1) Total Bilirubin 0.2 mg/dl (0.2-1) Direct Bilirubin < 0.1 mg/dl (0-0.2) Aspartate Amino Transf (AST/SGOT) 40 U/L (15-37) Alanine Aminotransferase (ALT/SGPT) 69 U/L (12-78) Alkaline Phosphatase 66 U/L (45-117) Total Protein 7.3 gm/dl (6.4-8.2) Albumin 3.7 gm/dl (3.4-5.0) Lipase 170 U/L (73-393) Human Chorionic Gonadotropin, Qual NEG (NEG) Salicylates Level < 1.7 mg/dl (2.8-20) Acetaminophen Level < 2 ug/ml (10-30) Ethyl Alcohol mg/dL < 3.0 mg/dl (0-3) Bedside Troponin I 0.000 ng/ml (0-0.045) Urine Opiates Screen NEG (NEG) Urine Methadone, Qualitative NEG (NEG) Urine Barbiturates NEG (NEG) Urine Phencyclidine (PCP) Level NEG (NEG) Ur Amphetamine/Methamphetamine NEG (NEG) MDMA (Ecstasy) Screen NEG (NEG) Urine Benzodiazepines Screen POS (NEG) Urine Cocaine Metabolite NEG (NEG) Urine Marijuana (THC) NEG (NEG) Laboratory studies as stated above per my review. Medications Administered Medications (Trade) Dose Ordered Sig/Ev Route Start Time Stop Time Status Last Admin Dose Admin Alprazolam (Xanax Tab) 0.25 mg ONE STAT PO 03/03/17 14:13 03/03/17 14:16 DC 03/03/17 14:34 0.25 MG ECG Indication: other (anxiety) Rate (beats per minute): 109 Rhythm: sinus tachycardia Findings: no acute ischemic change, no ectopy, other (normal intervals) Comparison ECG Date: 02/27/2016 Change: no significant change ED Course 1410: Past medical records reviewed. The patient was evaluated in room C6, and a complete history and physical examination were performed. 1413: Ordered Xanax Tab 0.25 mg PO. It is noted the psychiatric family independence case manager spoke with the patient. 1615: Upon reevaluation, the patient is doing well. I discussed the results and treatment plan with her. She verbalized agreement of the treatment plan. The patient was discharged home. Medical Decision Differentials include, but are not limited to; anxiety, arrhythmia, electrolyte or metabolic abnormality, cardiac disease. This patient comes in as described above. She was placed in room C6. She is here for treatment and evaluation of anxiety. She has a history of anxiety. She denies any suicidal or homicidal ideations. IV access was established, EKG , multiple blood tests was obtained. EKG does not suggest acute coronary syndrome or arrhythmia. She has no acute electrolyte or metabolic abnormalities. She's had nothing to suggest acute toxicologic process. She was medically cleared. I did have our psychiatric family independence case manager see her. The patient had been given Xanax and was resting comfortably. Regina gave her multiple options for help with the patient does not seem very interested in many of these options. She said she will follow-up with her regular doctor or return back to the [facility] for further chronic outpatient medications. She does not want to do inpatient at present. She does not meet any involuntary Commitment criteria either. She will return if: Worsening of symptoms, thoughts of hurting himself or others, any problems concerns. She is happy with plan and discharged to home. Impression Primary Impression: Anxiety Scribe Attestation The scribe's documentation has been prepared under my direction and personally reviewed by me in its entirety. I confirm that the note above accurately reflects all work, treatment, procedures, and medical decision making performed by me. Departure Information Dispostion Home / Self-Care Referrals Mickey Pollack III, M.D. (PCP) Forms HOME CARE DOCUMENTATION FORM, IMPORTANT VISIT INFORMATION Patient Instructions My [facility] Additional Instructions Rest Drink plenty of fluids Return if: Thoughts of hurting herself or others, worsening of symptoms, fever or chills, shortness of breath, any new problems concerns. Follow-up with your doctor and/or [facility] for chronic medications.
--- NOTE | 2017-03-03 14:36 | DIAGNOSTIC IMAGING REPORT ---
CHEST ONE VIEW PORTABLE CLINICAL HISTORY: Atypical chest pain and shortness of breath COMPARISON STUDY: 02/26/2017 FINDINGS: The cardiac and mediastinal contours are normal. There is no evidence of focal pulmonary consolidation. There is no evidence of failure. No pleural effusions are visualized.[ IMPRESSION: No active disease in the chest. Electronically signed by: Rolly Stock M.D. 03/03/2017 2:34 PM Dictated Date/Time: 03/03/2017 2:34 PM
[2017-03-03 14:53] LABS: BASO % 0.3 %; BASO ABS # 0.03 K/uL (0-0.2); COMPLETE YES; EOS % 2.4 %; HEMATOCRIT 35.5 % (37-47); IG% 0.3 %; LYMPH % 28.2 %; LYMPH ABS # 2.68 K/uL (1.2-3.4); MEAN CELL VOLUME 79.2 fL (80-100); MEAN CORPUSCULAR HEMOGLOBIN 27.2 pg (25-34); MEAN CORPUSCULAR HGB CONC 34.4 g/dl (32-36); MEAN PLATELET VOLUME 9.2 fL (7.4-10.4); NEUT % 61.8 %; PLATELET COUNT 248 K/uL (130-400); RED BLOOD COUNT 4.48 M/uL (4.2-5.4); WHITE BLOOD COUNT 9.51 K/uL (4.8-10.8)
[2017-03-03 15:14] LABS: ALT/SGPT 69 U/L (12-78); AST/SGOT 40 U/L (15-37); BLOOD UREA NITROGEN 15 mg/dl (7-18); BUN/CREATININE RATIO 17.5 (10-20); CALCIUM 8.8 mg/dl (8.5-10.1); CARBON DIOXIDE 30 mmol/L (21-32); CHLORIDE 108 mmol/L (98-107); CREATININE 0.88 mg/dl (0.60-1.20); GLUCOSE 98 mg/dl (70-99); POTASSIUM 3.9 mmol/L (3.5-5.1); SODIUM 142 mmol/L (136-145)
[2017-03-03 15:16] LABS: PREG INTERNAL NEGATIVE QC NEG CLEAR BACKGROUND; PREG INTERNAL POSITIVE QC POS CONTROL LINE
[2017-03-03 15:17] LABS: BENZODIAZEPINE, URINE POS (NEG); COCAINE,URINE NEG (NEG); PHENCYCLIDINE, URINE NEG (NEG)
[2017-03-03 15:17] LABS: ALKALINE PHOSPHATASE 66 U/L (45-117)
[2017-03-03 15:21] LABS: ACETAMINOPHEN < 2 ug/ml (10-30)
[2017-03-03 16:35] VITALS: BP 119/72; PULSE 96; O2SAT 95
[2017-03-07 15:33] LABS: HYDROXYETHYLFLURAZEPAM CONF NEGATIVE NG/ML (CUTOFF=50); HYDROXYMIDAZOLAM NEGATIVE NG/ML (CUTOFF=50); HYDROXYTRIAZOLAM CONF NEGATIVE NG/ML (CUTOFF=50); TEMAZEPAM CONF 83 NG/ML (CUTOFF=50)
== END 2017-03-03 16:36 | disposition home or self-care (01) ==
LOC: C.EDB 13:02 → C.EDC 16:36
DX: F41.9 Anxiety disorder, unspecified (principal); F17.200 Nicotine dependence, unspecified, uncomplicated; Z82.49 Family history of ischemic heart disease and other diseases of the circulatory system

== ENCOUNTER 2017-03-25 11:35 | Emergency (ER) | payer OTHER ==
[~2017-03-25] VITALS: Ht 175.3 cm; Wt 118.3 kg
[2017-03-25 11:38] VITALS: TEMP 36.7; Ht 175.3 cm; Wt 118.3 kg
[2017-03-25] MEDS ORDERED: SODIUM CHLORIDE 0.9% 1000ML 1,000 ML IV STA (11:56)
[2017-03-25] MEDS ORDERED: ALBUT/IPRATROP 3MG/0.5MG NEB 3 ML VIAL INH STA (11:56)
[2017-03-25] MEDS ORDERED: KETOROLAC TROMETHAMINE 30 MG/ML VIAL IV STA (11:56)
[2017-03-25 12:22] LABS: BASO % 0.3 %; BASO ABS # 0.03 K/uL (0-0.2); COMPLETE YES; EOS % 1.8 %; HEMATOCRIT 39.9 % (37-47); IG% 0.2 %; LYMPH % 23.3 %; LYMPH ABS # 2.34 K/uL (1.2-3.4); MEAN CELL VOLUME 83.3 fL (80-100); MEAN CORPUSCULAR HGB CONC 33.6 g/dl (32-36); MEAN PLATELET VOLUME 9.4 fL (7.4-10.4); MONO % 5.9 %; NEUT % 68.5 %; PLATELET COUNT 248 K/uL (130-400); RED BLOOD COUNT 4.79 M/uL (4.2-5.4); WHITE BLOOD COUNT 10.06 K/uL (4.8-10.8)
[2017-03-25 12:39] LABS: BUN/CREATININE RATIO 24.2 (10-20); CREATININE 0.66 mg/dl (0.60-1.20)
[2017-03-25 12:42] LABS: ALB/GLOB RATIO 1.1 (0.9-2)
[2017-03-25 12:47] LABS: PREG INTERNAL NEGATIVE QC NEG CLEAR BACKGROUND; PREG INTERNAL POSITIVE QC POS CONTROL LINE
--- NOTE | 2017-03-25 13:14 | DIAGNOSTIC IMAGING REPORT ---
CHEST 2 VIEWS ROUTINE CLINICAL HISTORY: Respiratory distress. Chills. COMPARISON STUDY: Chest radiograph March 03, 2017. FINDINGS: Lung volumes are normal. There is no consolidation. No pneumothorax or pleural effusion is present. Cardiac size is normal. Mediastinal contours are normal. There is no evidence of pulmonary edema. IMPRESSION: No acute cardiopulmonary findings. Electronically signed by: Xavier Stapleton M.D. 03/25/2017 1:12 PM Dictated Date/Time: 03/25/2017 1:11 PM
[2017-03-25] MEDS ORDERED: PRED20TA2 PO (13:55)
[2017-03-25 14:06] VITALS: BP 108/64; PULSE 91; O2SAT 98
--- NOTE | 2017-03-25 20:27 | EMERGENCY ROOM VISIT NOTE ---
ED Visit Note First contact with patient: 11:43 CHIEF COMPLAINT: Shortness of breath and chest tightness. HISTORY OF PRESENT ILLNESS: Ms. Carrillo is a 26-year-old white female who ambulates into the ED accompanied by female friend complaining of shortness of breath and chest tightness. Historically patient reports she has anxiety and her primary care provider put her on albuterol for her anxiety because she gets chest pain and shortness of breath; she's never been officially diagnosed with asthma but feels she may have asthma. Patient reports for the last 2 days she has been having a constant productive cough of greenish sputum. She reports when she woke up the last 2 days she feels like a constriction sensation around her chest like a snake is squeezing her. She rates this discomfort 8/10. The pain is nonradiating. Pain worsens with cough. She has not identified any alleviating factors related to the pain. She has not taken any medications for this discomfort prior to arrival at the hospital. Associated with her discomfort as previously noted was a productive cough, mild shortness of breath except for when the cough becomes severe and then it becomes worse, fatigue and intermittent chills with sensations of feeling hot. She denies henrry fevers, skin eruptions, skin color changes, headache, dizziness , lightheadedness, other upper respiratory tract symptoms, neck pain, back pain , palpitations, orthopnea, dependent edema, previous clots, claudication, recent surgery/inactivity/extended travel, estrogen with tobacco use, abdominal pain, nausea, vomiting, urinary symptoms, stool changes. REVIEW OF SYSTEMS: As noted above in History of Present Illness; all body systems reviewed with the patient and found to be negative unless noted above otherwise. PMH: Costochondritis, asthma, bronchitis, pneumonia, GERD, urinary tract infections, anxiety, status post section, unspecified left knee surgery and cholecystectomy. CURRENT MEDICATION: Atarax, tramadol, alprazolam, albuterol, amitriptyline. ALLERGIES TO MEDICATION: Sulfa. SOCIAL HISTORY: Patient is currently employed; she feels safe in her home environment; she admits to smoking tobacco and denies alcohol use. PHYSICAL EXAM: Vital Signs: Date Time Temp Pulse Resp B/P Pulse Ox O2 Delivery O2 Flow Rate FiO2 03/25/17 14:06 91 16 108/64 98 03/25/17 13:02 92 12 105/66 94 Room Air 03/25/17 11:38 36.7 97 18 121/76 98 Room Air GENERAL: 26-year-old female in mild distress due to pain symptoms, no acute difficulty breathing, nontoxic-appearing, afebrile and hemodynamically stable. NEUROLOGICAL: Awake, alert and oriented to person, place and time. Answering questions appropriately and following commands. Normal gait. Good hand eye coordination. No focal motor sensory deficits. SKIN: Warm, dry and pink. Sunburn noted over the back, shoulders and anterior chest HEENT: Atraumatic and normocephalic. PERRLA. Sclera white and conjunctiva pink. No drainage from naris. Oral cavity moist and pink. Pharynx is nonerythematous or edematous. Speech normal. No lymphadenopathy. Trachea midline. No jugular venous distention. BACK: No tenderness over the bony spine. No CVA tenderness. THORAX: Lungs sounds are decreased bilaterally with diffuse expiratory wheezing. Equal bilaterally with symmetrical chest wall. No rales or rhonchi. No increased respiratory effort or rate No crepitus, tenderness, subcutaneous air or deformities noted. HEART: Regular rate and rhythm. No gallops, rubs or murmurs are appreciated. ABDOMEN: Obese, soft and nontender. Positive bowel sounds in all quadrants. No guarding, rigidity or organomegaly. EXTREMITIES: Moves all extremities well on command and with purpose. All distal neurovascular statuses are intact and equal bilaterally. No calf tenderness or cords. EMERGENCY DEPARTMENT COURSE: Patient is assessed as noted above. Laboratory Testing: Test 03/25/17 12:09 03/25/17 12:14 Range/Units White Blood Count 10.06 4.8-10.8 K/uL Red Blood Count 4.79 4.2-5.4 M/uL Hemoglobin 13.4 12.0-16.0 g/dL Hematocrit 39.9 37-47 % Mean Corpuscular Volume 83.3 80-100 fL Mean Corpuscular Hemoglobin 28.0 25-34 pg Mean Corpuscular Hemoglobin Concent 33.6 32-36 g/dl Platelet Count 248 130-400 K/uL Mean Platelet Volume 9.4 7.4-10.4 fL Neutrophils (%) (Auto) 68.5 % Lymphocytes (%) (Auto) 23.3 % Monocytes (%) (Auto) 5.9 % Eosinophils (%) (Auto) 1.8 % Basophils (%) (Auto) 0.3 % Neutrophils # (Auto) 6.90 1.4-6.5 K/uL Lymphocytes # (Auto) 2.34 1.2-3.4 K/uL Monocytes # (Auto) 0.59 0.11-0.59 K/uL Eosinophils # (Auto) 0.18 0-0.5 K/uL Basophils # (Auto) 0.03 0-0.2 K/uL RDW Standard Deviation 42.8 36.4-46.3 fL RDW Coefficient of Variation 14.0 11.5-14.5 % Immature Granulocyte % (Auto) 0.2 % Immature Granulocyte # (Auto) 0.02 0.00-0.02 K/uL Sodium Level 143 136-145 mmol/L Potassium Level 4.0 3.5-5.1 mmol/L Chloride Level 106 98-107 mmol/L Carbon Dioxide Level 30 21-32 mmol/L Anion Gap 7.0 3-11 mmol/L Blood Urea Nitrogen 16 7-18 mg/dl Creatinine 0.66 0.60-1.20 mg/dl Est Creatinine Clear Calc Drug Dose 177.5 ml/min Estimated GFR () 141.3 Estimated GFR (Non- 121.9 BUN/Creatinine Ratio 24.2 10-20 Random Glucose 112 70-99 mg/dl Calcium Level 9.0 8.5-10.1 mg/dl Total Bilirubin 0.3 0.2-1 mg/dl Aspartate Amino Transf (AST/SGOT) 33 15-37 U/L Alanine Aminotransferase (ALT/SGPT) 69 12-78 U/L Alkaline Phosphatase 68 45-117 U/L Total Protein 7.6 6.4-8.2 gm/dl Albumin 4.0 3.4-5.0 gm/dl Globulin 3.6 2.5-4.0 gm/dl Albumin/Globulin Ratio 1.1 0.9-2 Human Chorionic Gonadotropin, Qual NEG NEG Bedside Troponin I 0.000 0-0.045 ng/ml Chest X-Ray: Was read by myself and the radiologist shows no acute infiltrates, effusions or pneumothorax. Normal heart silhouette and bony anatomy. No pulmonary edema. This was compared to a previous in no acute changes were noted. EKG: Was read by myself and reviewed with Dr. aVlverde; shows normal sinus rhythm with a ventricular rate of 93 bpm. Normal axis, intervals and complexes. No acute ST changes indicating ischemia, injury or infarction. This was compared to a previous from February 2017 and no acute changes were noted. Patient was hydrated with normal saline, she received an albuterol/min nebulizer breathing treatment, 60 mg of prednisone by mouth and 30 mg of Toradol IV. Patient was reassessed multiple times during her stay in the emergency department. After her initial breathing treatment she was reassessed and had marked improvement in air movement in all thomas and continued to have no wheezing, rales or rhonchi. Patient's case was reviewed with Dr. Valverde; we agreed on diagnostic approach, treatment, disposition and plan. Patient was educated about maninder's findings and instructed on her treatment plan; she verbalizes understanding and agreement with this plan. CLINICAL IMPRESSION: Upper respiratory tract infection. Possible mild asthma exacerbation. DECISION MAKING: Initially my differential diagnosis I considered upper respiratory tract infection, pneumonia, pulmonary embolism, acute coronary syndrome, costochondritis, bronchitis and other causes.. DISPOSITION: Patient discharged home in stable condition accompanied by female friends; prior to departure she was reassessed and subjectively reported she was feeling better. She reported resolution of shortness of breath and rated her chest discomfort 4/10. PLAN: Patient was encouraged to use her albuterol inhaler with spacer 2 puffs every 6 hours for 5 days and as needed for any shortness of breath or significant coughing episode. Patient was encouraged to alternate ibuprofen or acetaminophen as needed for chest discomfort. Patient was encouraged to use an [id number] cough suppressant as needed. Patient was prescribed prednisone 60 mg once a day for 5 additional days. Patient was encouraged to follow-up with primary care provider for recheck in 4- 5 days. Patient was encouraged return the ED for worsening/uncontrolled cough, uncontrolled shortness of breath/wheezing, coughing up blood, fevers, uncontrolled pain or any new/concerning symptoms.
== END 2017-03-25 14:12 | disposition home or self-care (01) ==
LOC: C.EDB 11:38
DX: J06.9 Acute upper respiratory infection, unspecified (principal); F41.9 Anxiety disorder, unspecified; L55.9 Sunburn, unspecified

== ENCOUNTER 2017-04-08 23:07 | Emergency (ER) | payer OTHER ==
[~2017-04-08] VITALS: Ht 175.3 cm; Wt 118.2 kg
[~2017-04-08 23:07] MED LIST changes: -AMT25 PO; +PRED20TA2 PO
[2017-04-08 23:08] VITALS: TEMP 36.7; Ht 175.3 cm; Wt 118.2 kg
[2017-04-08] MEDS ORDERED: AMOX875T PO (23:19)
[2017-04-08] MEDS ORDERED: PRED50TA PO (23:19)
[2017-04-08] MEDS ORDERED: AMOXICIL/CLAVU 875MG HOME PACK PO ONE (23:30)
[2017-04-08 23:47] VITALS: BP 120/83; PULSE 111; O2SAT 96
--- NOTE | 2017-04-09 03:37 | EMERGENCY ROOM VISIT NOTE ---
History First contact with patient: 23:13 Chief Complaint: RESPIRATORY PROBLEMS Stated Complaint: CHEST/LUNG BURNING/PAIN WHEN COUGHING, Nursing Triage Summary: Patient with c/o nasal congestion and cough. History of Present Illness The patient is a 26 year old female who presents to the Emergency Room with complaints of cough, congestion, sinus pain and congestion, subjective fever and chills for the past week. Patient denies neck stiffness, sore throat, chest pain, dyspnea, abdominal pain, vomiting, diarrhea. She is tolerating by mouth fluids and food. She continues to smoke. Review of Systems See HPI for pertinent positives & negatives. A total of 10 systems reviewed and were otherwise negative. Past Medical/Surgical History Medical Problems: (1) Abdominal pain (2) Chest pain (3) Chest pain (4) Costochondritis (5) Costochondritis (6) Flu-like symptoms (7) Left wrist pain (8) Pain, dental (9) Urinary tract infection (10) Urinary tract infection (11) Uterine contractions at greater than 20 weeks of gestation Surgical Problems: (1) section (2) History of knee surgery (3) Hx of cholecystectomy Family History Cancer Gallbladder disease Hypertension Lung disease Social History Smoking Status: Current Every Day Smoker Alcohol Use: none Drug Use: none Marital Status: in relationship Housing Status: lives with significant other Occupation Status: employed Current/Historical Medications Scheduled Amitriptyline HCl (Amitriptyline HCl), 50 MG PO HS Amoxicillin & Pot Clavulanate (Augmentin 875-125 mg), 1 TAB PO BID Prednisone (Prednisone), 50 MG PO DAILY Scheduled PRN Albuterol Hfa (Ventolin Hfa), 2 PUFFS INH Q4H PRN for Cough or Wheezing Alprazolam (Alprazolam), 0.125-0.25 MG PO TID PRN for Anxiety Hydroxyzine Hcl (Atarax), 50 MG PO QID PRN for Anxiety Tramadol HCl (Tramadol HCl), 50 MG PO TID PRN for Pain Allergies Coded Allergies: Sulfa Antibiotics (Verified Allergy, Unknown, SEVERE DROWSINESS A CHILD , 04/08/17) Physical Exam Vital Signs Date Time Temp Pulse Resp B/P Pulse Ox O2 Delivery O2 Flow Rate FiO2 04/08/17 23:47 Room Air 04/08/17 23:47 111 20 120/83 96 5/14/17 23:08 36.7 111 20 125/83 98 Room Air Pain Rating (0-10): 3.0 Physical Exam VITALS: Vitals are noted on the nurse's note and reviewed by myself. Vital signs stable. GENERAL: Pleasant female, in no acute distress, nondiaphoretic, well-developed well-nourished. SKIN: The skin was without rashes, erythema, edema, or bruising. There is no tenting of the skin. Capillary reflex less than 2 seconds. HEAD: Normocephalic atraumatic. EARS: External auditory canals clear, tympanic membranes pearly mack without erythema or effusion bilaterally. EYES: Pupils equal round and reactive to light and accommodation. Conjunctivae without injection, sclerae without icterus. Extraocular movements intact. NOSE: Patent, turbinates without inflammation or discharge. Bilateral maxillary sinus tenderness. MOUTH: Mucous membranes moist. Pharynx without erythema or exudate. Uvula midline. Airway patent. Tongue does not deviate. NECK: Supple without nuchal rigidity. No lymphadenopathy. No thyromegaly. Cervical spine is nontender. No JVD. HEART: Regular rate and rhythm without murmurs gallops or rubs. LUNGS: Clear to auscultation bilaterally without wheezes, rales or rhonchi. No dullness to percussion. No retractions or accessory muscle use. ABDOMEN: Positive bowel sounds x 4. Normal tympanic percussion. Soft, nontender, without masses or organomegaly. Duque sign negative. No guarding or rebound tenderness. MUSCULOSKELETAL: No muscle atrophy, erythema, or edema noted. NEURO: Patient was alert and oriented to person place and time. Normal sensation to light and sharp touch. No focal neurological deficits. Medical Decision & Procedures Medications Administered Medications (Trade) Dose Ordered Sig/Ev Route Start Time Stop Time Status Last Admin Dose Admin Amoxicillin/ Clavulanate Potassium (Augmentin 875MG Home Pack) 1 homepack UD ONCE PO 04/08/17 23:30 04/08/17 23:31 DC 04/08/17 23:46 1 HOMEPACK Prednisone (PredniSONE TAB) 60 mg NOW STAT PO 04/08/17 23:16 04/08/17 23:17 DC 04/08/17 23:46 60 MG ED Course Prior records/ancillary studies reviewed. Triage Nursing notes reviewed. The patient's history was concerning for a cold symptoms. Differential diagnosis: Etiologies such as viral syndrome, tonsillitis, sinusitis, bronchitis, otitis, pneumonia, influenza, as well as others were entertained. ER treatment provided: Augmentin, prednisone On reassessment the patient felt better. Diagnostics interpreted by me: Deferred Prior chest x-ray was reviewed and negative This appears to be consistent with any sinus with bronchitis. Patient was neurovascularly and neurologically intact. No signs of meningitis. She is advised take medications as directed and strongly encouraged to quit smoking. She is advised to follow-up family care in a few days or here in the ER sooner for high fevers, lethargy, difficulty breathing, worsening signs or symptoms or as needed. By the evaluation outlined above emergent etiologies such as peritonsillar abscess, retropharyngeal abscess, otitis, pneumonia, meningitis, urinary tract infection, sepsis, bacteremia, as well as others were deemed relatively unlikely. The pt informed about the findings as listed above. All questions were answered and pleased with the treatment. Return instructions were outlined and the patient was discharged in stable condition. Outpatient prescription management: Augmentin, prednisone Referral: The patient was referred back to their primary care physician for follow-up in 2 to 3 days for a recheck of the current condition. Medical Decision As above Impression Primary Impression: Maxillary sinusitis, acute Additional Impression: Bronchitis Departure Information Dispostion Home / Self-Care Condition GOOD Prescriptions Amoxicillin & Pot Clavulanate (Augmentin 875-125 mg) 1 Tab Tab 1 TAB PO BID, #18 TAB Prov: Carilne Spicer PA-C 04/08/17 Prednisone (Prednisone) 50 Mg Tab 50 MG PO DAILY for 4 Days, #4 TAB Prov: Carline Spicer PA-C 04/08/17 Forms WORK / SCHOOL INSTRUCTIONS, HOME CARE DOCUMENTATION FORM, IMPORTANT VISIT INFORMATION Patient Instructions Pleurisy, Sinusitis Acute, My [facility] Additional Instructions Amoxicillin Clavulanate (Augmentin) 875mg: Take one pill twice daily for 10 days for your infection. All antibiotics can cause diarrhea. If this occurs and you feel worse or it does not resolve in 1-2 days follow up with your doctor or return to the Emergency Department as this could be signs of serious underlying problems. Any medication can cause an allergic reaction, stop the pills immediately and return to the ER for rash, hives, breathing difficulties, or swelling. Albuterol Inhaler: Take 2 puffs four times daily for five days, then as needed. Prednisone 50mg: Once daily until the prescription is finished. It is best to take this earlier in the day as some patients note occasional difficulty falling asleep when taken in the late evening. Acetaminophen(Tylenol) may be used for fever or pain. Use 1000mg every six hours as needed. Avoid using more than 3000mg in a 24 hour period. (AND/OR) Ibuprofen(Motrin, Advil) may be used for fever or pain. Use 600mg every six hours as needed. Take with food. Avoid using more than 2400mg in a 24 hour period. Do not use 2400mg per day for more than three consecutive days without physician direction. Prolonged inappropriate use can lead to stomach upset or ulcers. Rest and drink plenty of fluids. Avoid smoke/smoking, fumes, dust, or any triggers in the past that may have affected your breathing. Afrin nasal spray: 2-3 sprays to each nostril twice daily as needed for congestion. Do not use for more than 3-4 days because it can lead to worsening rebound congestion. Pseudoephedrine(Sudaphed): 30-60mg every 6 hours as needed for nasal congestion. Do not take this with other stimulant products or supplements. Wash your hands after nose blowing, sneezing, or coughing. Most germs are spread through contact, therefore improper hygiene may result in your close contacts and loved ones becoming ill just like you. Continue current medications. Return to the ER for severe headache, neck stiffness, chest pain, difficulty breathing, fevers, vomiting, worsening of your condition, or as needed. Follow up with your primary physician this week for a recheck of your current condition. Problem Qualifiers Primary Impression: Maxillary sinusitis, acute Recurrence: not specified as recurrent Qualified Codes: J01.00 - Acute maxillary sinusitis, unspecified
== END 2017-04-08 23:47 | disposition home or self-care (01) ==
LOC: C.EDB 23:08
DX: J01.00 Acute maxillary sinusitis, unspecified (principal); J40 Bronchitis, not specified as acute or chronic; F17.200 Nicotine dependence, unspecified, uncomplicated; Z82.49 Family history of ischemic heart disease and other diseases of the circulatory system

== ENCOUNTER 2017-06-01 22:23 | Emergency (ER) | payer OTHER ==
[~2017-06-01] VITALS: Ht 175.3 cm; Wt 121.2 kg
[2017-06-01 22:27] VITALS: TEMP 36.6; Ht 175.3 cm; Wt 121.2 kg
[2017-06-01] MEDS ORDERED: PRED50TA PO (23:51)
--- NOTE | 2017-06-01 23:52 | EMERGENCY ROOM VISIT NOTE ---
History First contact with patient: 22:48 Chief Complaint: HIP PAIN Stated Complaint: LUMP ON R SIDE,HIP HURTING INTO MID LWR BACK.GRACIELA History of Present Illness The patient is a 27 year old female who presents to the Emergency Room with complaints of right hip pain. The patient states she has had soreness of the right hip on and off for the past few weeks. She states the pain radiates into the lower to mid back. She does have a history of arthritis. She states that she has felt a lump over the hip intermittently. The pain is worse with walking or movement. She denies any injury. She rates the discomfort an 8/10. She denies any numbness or weakness of the legs or bowel or bladder incontinence. Review of Systems A complete 10 point review of systems was reviewed with the patient with pertinent positives and negatives as per history of present illness. All else were negative. Past Medical/Surgical History Medical Problems: (1) Abdominal pain (2) Chest pain (3) Chest pain (4) Costochondritis (5) Costochondritis (6) Flu-like symptoms (7) Left wrist pain (8) Pain, dental (9) Urinary tract infection (10) Urinary tract infection (11) Uterine contractions at greater than 20 weeks of gestation Surgical Problems: (1) section (2) History of knee surgery (3) Hx of cholecystectomy Family History Cancer Gallbladder disease Hypertension Lung disease Social History Smoking Status: Current Every Day Smoker Alcohol Use: none Drug Use: none Marital Status: in relationship Housing Status: lives with significant other Occupation Status: employed Current/Historical Medications Scheduled Amitriptyline HCl (Amitriptyline HCl), 50 MG PO HS Prednisone (Prednisone), 50 MG PO DAILY Scheduled PRN Albuterol Hfa (Ventolin Hfa), 2 PUFFS INH Q4H PRN for Cough or Wheezing Alprazolam (Alprazolam), 0.125-0.25 MG PO TID PRN for Anxiety Hydroxyzine Hcl (Atarax), 50 MG PO QID PRN for Anxiety Tramadol HCl (Tramadol HCl), 50 MG PO TID PRN for Pain Allergies Coded Allergies: Sulfa Antibiotics (Verified Allergy, Unknown, SEVERE DROWSINESS A CHILD , 04/08/17) Physical Exam Vital Signs Date Time Temp Pulse Resp B/P (MAP) Pulse Ox O2 Delivery O2 Flow Rate FiO2 06/01/17 23:57 96 18 118/70 98 06/01/17 22:27 36.6 102 18 125/72 98 Room Air Physical Exam VITALS: Vitals are noted on the nurse's note and reviewed by myself. Vital signs stable. GENERAL: This is a 27-year-old female, in no acute distress, nondiaphoretic, well-developed well-nourished. SKIN: No rashes, ecchymosis or erythema. HEART: Regular rate and rhythm without murmurs gallops or rubs. LUNGS: Clear to auscultation bilaterally without wheezes, rales or rhonchi. MUSCULOSKELETAL: No soft tissue swelling. There is tenderness to palpation over the lateral right hip. Full range of motion of the right lower extremity. Strength 5/5. NEURO: Patient was alert and oriented to person place and time. Normal sensation to light and sharp touch. Medical Decision & Procedures ER Provider Diagnostic Interpretation: RIGHT HIP X-RAY: No acute fractures or other bony abnormality. Medical Decision Differential diagnosis includes arthritis, tendinitis, bursitis, lumbar radiculopathy, among others. The patient is a 27-year-old female who presents today complaining of right hip pain. Right hip x-rays reviewed by myself and showed no acute abnormalities. The patient does state some pain is radiating into the low back and I suspect she may have lumbar radiculopathy causing hip pain. She will be placed on a short course of prednisone. She was instructed to follow-up with her primary care provider for further evaluation. Based on the patient's presentation and work up, I feel the patient is stable for outpatient treatment. The patient was educated to return to the emergency department for any worsening of their current condition or new/concerning symptoms. She will follow up with her PCP. Medication reconciliation: I attest that I have personally reviewed the patient 's current medication list. Blood pressure screening: Patient was found to have normal blood pressure on screening and does not require follow-up. Impression Primary Impression: Right hip pain Departure Information Dispostion Home / Self-Care Condition GOOD Prescriptions Prednisone (Prednisone) 50 Mg Tab 50 MG PO DAILY for 4 Days, #4 TAB Prov: Lona Loera PA-C 06/01/17 Referrals Mickey Pollack III, M.D. (PCP) Patient Instructions [facility] Additional Instructions You have been prescribed Prednisone. This is a steroid which will help decrease your inflammation and pain. Take this medicine as prescribed. Take the ENTIRE 4 day course. It is best to take steroids early in the morning as PM dosing can affect your sleeping patterns. For pain control, you can use the following fath-ymh-shirnot medicines (if >12 yo): - Regular strength (325mg/tab) Tylenol (acetaminophen) 2 tabs every 4-6 hours as needed. Do not exceed 12 tablets in a 24 hour period. Avoid taking more than 4 grams (4000 mg) of Tylenol per day. This includes any other sources of acetaminophen you may take on a regular basis. - Regular strength (200 mg/tab) Advil (ibuprofen) 1-2 tabs every 4-6 hours as needed. Do not exceed a dose of 3200 mg per day. Follow-up with the primary care provider as needed. Return to the emergency department with any worsening or new/concerning symptoms.
[2017-06-01 23:57] VITALS: BP 118/70; PULSE 96; O2SAT 98
--- NOTE | 2017-06-02 06:42 | DIAGNOSTIC IMAGING REPORT ---
RIGHT HIP UNILATERAL 2 VIEWS CLINICAL HISTORY: Right hip pain COMPARISON: None. DISCUSSION: No fractures or dislocations are visualized. There are no erosive or destructive changes. The joint space appears within normal limits. There is a surgical clip within the pelvis. IMPRESSION: Unremarkable conventional radiographic evaluation of the right hip Electronically signed by: Rolly Stock M.D. 06/02/2017 6:41 AM Dictated Date/Time: 06/02/2017 6:41 AM
== END 2017-06-01 23:59 | disposition home or self-care (01) ==
LOC: C.EDB 22:25 → C.EDC 23:59
DX: M25.551 Pain in right hip (principal); M19.90 Unspecified osteoarthritis, unspecified site; Z87.440 Personal history of urinary (tract) infections; Z80.9 Family history of malignant neoplasm, unspecified; Z83.79 Family history of other diseases of the digestive system; Z82.49 Family history of ischemic heart disease and other diseases of the circulatory system; Z83.6 Family history of other diseases of the respiratory system; F17.210 Nicotine dependence, cigarettes, uncomplicated; Z79.899 Other long term (current) drug therapy

== ENCOUNTER 2017-06-13 17:16 | Emergency (ER) | payer OTHER ==
[~2017-06-13] VITALS: Ht 175.3 cm; Wt 121.5 kg
[2017-06-13 17:18] VITALS: TEMP 36.7; Ht 175.3 cm; Wt 121.5 kg
[2017-06-13] MEDS ORDERED: TYLOTC500 PO (17:30)
--- NOTE | 2017-06-13 18:05 | EMERGENCY ROOM VISIT NOTE ---
History First contact with patient: 17:26 Chief Complaint: HIP PAIN Stated Complaint: EXTREME HIP PAIN History of Present Illness The patient is a 27 year old female who presents to the Emergency Room with complaints of persistent left hip pain. The patient was in the emergency department recently with workup for her pain. She was instructed to follow-up with her PCP for further reevaluation and management. The patient has not done so. The patient has also seen [facility] in the past, but they will no longer see her because of an unpaid bill. The patient reports that her pain is escalated to a 9 out of 10 with weightbearing. She also has mild discomfort radiating into the back. He denies bladder or bowel incontinence, saddle anesthesias or lower extremity weakness. Review of Systems 10 system review was performed and was negative except for pertinent positives and negatives as indicated in history of present illness Past Medical/Surgical History Medical Problems: (1) Abdominal pain (2) Chest pain (3) Chest pain (4) Costochondritis (5) Costochondritis (6) Flu-like symptoms (7) Left wrist pain (8) Pain, dental (9) Urinary tract infection (10) Urinary tract infection (11) Uterine contractions at greater than 20 weeks of gestation Surgical Problems: (1) section (2) History of knee surgery (3) Hx of cholecystectomy Family History Cancer Gallbladder disease Hypertension Lung disease Social History Smoking Status: Current Every Day Smoker Alcohol Use: none Drug Use: none Marital Status: in relationship Housing Status: lives with significant other Occupation Status: employed Current/Historical Medications Scheduled Acetaminophen (Tylenol), 1,000 MG PO PRN UD Amitriptyline HCl (Amitriptyline HCl), 50 MG PO HS Scheduled PRN Albuterol Hfa (Ventolin Hfa), 2 PUFFS INH Q4H PRN for Cough or Wheezing Alprazolam (Alprazolam), 0.125-0.25 MG PO TID PRN for Anxiety Hydroxyzine Hcl (Atarax), 50 MG PO QID PRN for Anxiety Tramadol HCl (Tramadol HCl), 50 MG PO TID PRN for Pain Physical Exam Vital Signs Date Time Temp Pulse Resp B/P (MAP) Pulse Ox O2 Delivery O2 Flow Rate FiO2 06/13/17 17:18 36.7 111 18 136/90 97 Room Air Physical Exam CONSTITUTIONAL: Healthy and well nourished. Alert and oriented X 3 with a flat affect. HEENT: Normocephalic, atraumatic. Pupils equal, round and reactive. No scleral icterus or conjunctival injection. NECK: Full active range of motion without discomfort. MUSCULOSKELETAL: Examination shows generalized tenderness to palpation about the left hip, greater trochanteric region and SI joint. Negative logroll. Negative sitting straight leg raise. Pedal pulses are intact. INTEGUMENTARY: No rash or other significant dermatologic conditions noted. NEUROLOGIC: Left lower extremity is sensory intact. Medical Decision & Procedures ED Course Patient history and physical exam were performed. Nurse's notes were reviewed. Vital signs were reviewed and marginally normal. I did review the patient's last ED workup, including left hip x-rays that did not show any significant degenerative findings. At this point, the patient was advised that the emergency department will not provide any further workup for her condition. I did encourage her to contact the other 2 orthopedic practice is in the area to see if they accept her insurance. If they do, she was instructed to contact her PCP for a referral. The patient was dispensed crutches. She was instructed to elevate her legs as needed for swelling. She may continue with ibuprofen and Tylenol as needed for pain. She may also follow-up with her PCP as needed until she can be seen by orthopedics. The patient voiced understanding of all discharge instructions, and rated her pain a 4 out of 10 at the conclusion of my exam. Medical Decision As indicated in previous dictations, etiologies considered included musculoskeletal etiology of the left hip, including greater trochanteric bursitis, osteoarthritis, sacroiliitis, along with the possibility of lumbar radiculitis. I do not suspect intra-abdominal or intrapelvic etiologies. The patient has no clinical history or physical exam findings to suggest cauda equina syndrome. I also do not suspect deep vein thrombosis. Medication Reconcilliation Current Medication List: was personally reviewed by me Blood Pressure Screening Patient's blood pressure: Normal blood pressure Impression Primary Impression: Left hip pain Departure Information Dispostion Home / Self-Care Forms HOME CARE DOCUMENTATION FORM, IMPORTANT VISIT INFORMATION Patient Instructions My [facility] Additional Instructions Follow-up with orthopedics for further reevaluation and management. You can try calling [facility] or [facility] to see if they accept her insurance. If they do, call your family doctor to see if they can give you a referral without seeing you in their office. Use crutches as provided to help os with the pain. Elevate legs above heart for swelling. The emergency department does not provide further orthopedic workup or pain management.
[2017-06-13 18:14] VITALS: BP 131/83; PULSE 106; O2SAT 97
[2017-06-13] MEDS ORDERED: HYDR-3126 PO (21:49)
[2017-06-13] MEDS ORDERED: ULT50 PO (21:49)
[2017-06-13] MEDS ORDERED: XNX25 PO (21:49)
[2017-06-13] MEDS ORDERED: VNTHFA/IN INH (21:49)
[2017-06-13] MEDS ORDERED: AMT/50 PO (22:49)
== END 2017-06-13 18:29 | disposition home or self-care (01) ==
LOC: C.EDB 17:17 → C.EDD 18:29
DX: M25.552 Pain in left hip (principal); Z87.440 Personal history of urinary (tract) infections; Z90.49 Acquired absence of other specified parts of digestive tract; Z82.49 Family history of ischemic heart disease and other diseases of the circulatory system; Z80.9 Family history of malignant neoplasm, unspecified; F17.210 Nicotine dependence, cigarettes, uncomplicated; Z79.899 Other long term (current) drug therapy

== ENCOUNTER 2017-06-25 14:37 | Emergency (ER) | payer OTHER ==
[~2017-06-25] VITALS: Ht 175.3 cm; Wt 119.7 kg
[~2017-06-25 14:37] MED LIST changes: +AMT/50 PO; +HYDR-3126 PO; -PRED20TA2 PO; +TYLOTC500 PO; +ULT50 PO; +VNTHFA/IN INH; +XNX25 PO
[2017-06-25 14:41] VITALS: TEMP 36.7; Ht 175.3 cm; Wt 119.7 kg
[2017-06-25] MEDS ORDERED: VENL37.593 PO (15:02)
[2017-06-25] MEDS ORDERED: MTR800 PO (15:02)
[2017-06-25] MEDS ORDERED: MELO15TA4 PO (15:02)
--- NOTE | 2017-06-25 15:22 | DIAGNOSTIC IMAGING REPORT ---
CHEST 2 VIEWS ROUTINE CLINICAL HISTORY: COUGH, CHEST CONGESTION dyspnea COMPARISON STUDY: 03/25/2017 FINDINGS: The bones soft tissues and hemidiaphragms are normal. The cardiomediastinal silhouette is normal. The lungs are clear. The pulmonary vasculature is normal. IMPRESSION: Negative chest. The above report was generated using voice recognition software. It may contain grammatical, syntax or spelling errors. Electronically signed by: Tai Everett M.D. 06/25/2017 3:21 PM Dictated Date/Time: 06/25/2017 3:21 PM
[2017-06-25] MEDS ORDERED: HYDR5SYP11 PO (15:46)
--- NOTE | 2017-06-25 15:47 | EMERGENCY ROOM VISIT NOTE ---
ED Visit Note First contact with patient: 14:46 CHIEF COMPLAINT : Sore throat and cough 5 days HISTORY OF PRESENT ILLNESS: Patient is a 27-year-old white female who presents emergency department for evaluation of a productive cough. She states her symptoms started about 4 or 5 days ago with a bad sore throat and a fever. Fever and sore throat lasted for a couple of days, then resolved. Temperature max was 101.5F orally. She subsequently developed chest tightness and a productive cough and sneezing. She has used NyQuil and her albuterol inhaler. She denies any chest pain. No shortness of breath. She has not had any further fevers. She denies any sick contacts. She is not on any antibiotics recently. No rash. Denies any posterior neck pain or stiffness. REVIEW OF SYSTEMS: Review of systems as per HPI. All other systems reviewed were negative. At least 6 systems reviewed. PMH: Electronic medical records are reviewed and summarized as above/below. See Problem List. SOCIAL HISTORY: Patient lives at home with her family. She is a smoker. PHYSICAL EXAM: Vital Signs: Reviewed Nurse's notes. MENTAL STATUS: Well- appearing 27-year-old white female who is awake and alert and in no acute distress. EARS: Tympanic membranes intact, not inflamed, have normal contour. External canals clear. THROAT: The pharynx slightly erythematous, not swollen, no palatal petechiae. No exudates are seen on the tonsils. The oropharyngeal airway is patent. Uvula is midline and no abscess is seen. NOSE: Nares patent , turbinates edematous and boggy with clear rhinorrhea. SKIN: Clear and dry, no eruptions. No cyanosis, no petechiae. NECK: Supple, without lymphadenopathy. No meningeal signs. HEART: Regular rate and rhythm, with normal S1 and S2, no murmur or gallop or rub is heard. LUNGS: Breath sounds equal and clear to auscultation without wheezes, rales, or rhonchi heard. EMERGENCY DEPARTMENT COURSE: Rapid strep was negative. Backup cultures were sent. Chest x-ray was obtained and was negative. The patient was reassured. I suspect her illness is viral in nature. Differential diagnosis include strep versus viral pharyngitis, mononucleosis, bronchitis, pneumonia, sinusitis, otitis media, among others. Continue conservative care measures were discussed. The patient was given a prescription for Hycodan. She was advised to continue using her albuterol inhaler. Follow up with her primary care provider if her symptoms are not improving. Medication reconciliation: I attest that I have personally reviewed the patient' s current medication list. Blood pressure screening : Patient was found to have normal blood pressure on screening and does not require follow-up. CHEST 2 VIEWS ROUTINE CLINICAL HISTORY: COUGH, CHEST CONGESTION dyspnea COMPARISON STUDY: 03/25/2017 FINDINGS: The bones soft tissues and hemidiaphragms are normal. The cardiomediastinal silhouette is normal. The lungs are clear. The pulmonary vasculature is normal. IMPRESSION: Negative chest. Problem List Medical Problems: (1) Abdominal pain Status: Resolved (2) Anxiety disorder Status: Chronic (3) Asthma Status: Chronic (4) Chest pain Status: Resolved (5) Chest pain Status: Resolved (6) Costochondritis Status: Resolved (7) Costochondritis Status: Resolved (8) Flu-like symptoms Status: Resolved (9) Left wrist pain Status: Resolved (10) Pain, dental Status: Resolved (11) Urinary tract infection Status: Resolved (12) Urinary tract infection Status: Resolved Surgical Problems: (1) section Status: Resolved (2) History of knee surgery Status: Resolved (3) Hx of cholecystectomy Status: Resolved Current/Historical Medications Scheduled Amitriptyline HCl (Amitriptyline HCl), 50 MG PO HS Ibuprofen (Ibuprofen), 800 MG PO TID Scheduled PRN Albuterol Hfa (Ventolin Hfa), 2 PUFFS INH Q4H PRN for Cough or Wheezing Alprazolam (Alprazolam), 0.125-0.25 MG PO TID PRN for Anxiety Hydrocodone W/ Homatropine (Hycodan 5/1.5MG 5 Ml), 10 ML PO Q4H PRN for Cough Hydroxyzine Hcl (Atarax), 50 MG PO QID PRN for Anxiety Tramadol HCl (Tramadol HCl), 50 MG PO TID PRN for Pain Allergies Coded Allergies: Sulfa Antibiotics (Verified Allergy, Unknown, SEVERE DROWSINESS A CHILD , 06/25/17) Vital Signs Date Time Temp Pulse Resp B/P (MAP) Pulse Ox O2 Delivery O2 Flow Rate FiO2 06/25/17 16:05 106 16 127/72 98 06/25/17 14:41 36.7 102 20 129/85 99 Room Air Departure Information Impression Primary Impression: URI (upper respiratory infection) Prescriptions Hydrocodone W/ Homatropine (HYCODAN 5/1.5MG 5 ML) 1 Syp Syp 10 ML PO Q4H Y for Cough, #150 ML For Initial Treatment Prov: Mariela Hilliard PA 06/25/17 Referrals Mickey Pollack III, M.D. (PCP) Patient Instructions My [facility] Additional Instructions Acetaminophen(Tylenol) may be used for fever or pain. Use 1000mg every six hours as needed. Avoid using more than 3000mg in a 24 hour period. (AND/OR) Ibuprofen(Motrin, Advil) may be used for fever or pain. Use 600mg every six hours as needed. Take with food. Avoid using more than 2400mg in a 24 hour period. Do not use 2400mg per day for more than three consecutive days without physician direction. Prolonged inappropriate use can lead to stomach upset or ulcers. Pseudoephedrine(Sudaphed): 30-60mg every 6 hours as needed for nasal congestion. Do not take this with other stimulant products or supplements. Guaifenesin (Mucinex) : Take 1200 mg every 12 hours as needed for nasal/chest congestion, to help thin secretions. Albuterol Inhaler: Take 2 puffs four times daily for seven days, then as needed. Hycodan cough syrup: use 5-10 mL every six hours only as needed for severe cough. It is best for use at night since it will cause sedation. This is a narcotic medication. Avoid alcohol, operating machinery or dangerous equipment , working on ladders or roofs, DRIVING, or situations where being under the influence may be dangerous. It is recommended to use an lefz-aum-jmopump stool softener such as Colace, 100mg twice daily while taking this medication to avoid constipation. Rest and drink plenty of fluids. Controlling your fever with Tylenol and Ibuprofen as above will make you feel better. Wash your hands after nose blowing, sneezing, or coughing. Most germs are spread through contact, therefore improper hygiene may result in your close contacts and loved ones becoming ill just like you. Continue current medications. Return to the ER for severe headache, neck stiffness, chest pain, difficulty breathing, fevers, vomiting, worsening of your condition, or as needed. Follow up with your primary physician this week for a recheck of your current condition.
[2017-06-25 16:05] VITALS: BP 127/72; PULSE 106; O2SAT 98
== END 2017-06-25 16:05 | disposition home or self-care (01) ==
LOC: C.EDB 14:38
DX: J06.9 Acute upper respiratory infection, unspecified (principal); F17.200 Nicotine dependence, unspecified, uncomplicated; F41.9 Anxiety disorder, unspecified; J45.909 Unspecified asthma, uncomplicated

== ENCOUNTER 2017-08-07 09:09 | Emergency (ER) | payer OTHER ==
[~2017-08-07] VITALS: Ht 175.3 cm; Wt 120.7 kg
[~2017-08-07 09:09] MED LIST changes: +MTR800 PO; -TYLOTC500 PO
[2017-08-07 09:12] VITALS: TEMP 36.7; Ht 175.3 cm; Wt 120.7 kg
--- NOTE | 2017-08-07 10:34 | DIAGNOSTIC IMAGING REPORT ---
RIGHT ANKLE MIN 3 VIEWS ROUTINE CLINICAL HISTORY: Right ankle pain status post trauma COMPARISON: None. DISCUSSION: There is an age-indeterminate avulsion arising from the lateral malleolar tip. The ankle mortise appears intact. No tibial fractures are visualized. There is mild lateral soft tissue swelling IMPRESSION: Age-indeterminate lateral malleolar tip avulsion. Electronically signed by: Rolly Stock M.D. 08/07/2017 10:33 AM Dictated Date/Time: 08/07/2017 10:32 AM
--- NOTE | 2017-08-07 10:39 | DIAGNOSTIC IMAGING REPORT ---
RIGHT FOOT MIN 3 VIEWS ROUTINE CLINICAL HISTORY: pain s/p eversion injury Right trauma. Pain. COMPARISON: None. DISCUSSION: The bones and joint spaces appear intact. There is no evidence of fracture, dislocation or bony disease. There is no evidence for soft tissue swelling. IMPRESSION: Negative study. The above report was generated using voice recognition software. It may contain grammatical, syntax or spelling errors. Electronically signed by: Tai Everett M.D. 08/07/2017 10:38 AM Dictated Date/Time: 08/07/2017 10:33 AM
[2017-08-07] MEDS ORDERED: OXYC1TAB3 PO (10:49)
--- NOTE | 2017-08-07 10:52 | EMERGENCY ROOM VISIT NOTE ---
ED Visit Note First contact with patient: 09:32 CHIEF COMPLAINT: right Ankle pain HISTORY OF PRESENT ILLNESS: This 27-year-old female patient presents to the emergency department 4 days after sustaining an injury to the bright ankle and foot with a twisting, eversion motion walking down the stairs. The patient complains of pain along the outside of the ankle. The patient does report pain of the lateral foot. The patient rates the pain as throbbing and 7/10. The patient is able to bear weight on the foot. Constant pain, worse with movement , weight bearing, and the dependent position. No knee pain, the patient is able to move their toes. No numbness or weakness of the foot, no laceration. The patient has had a previous fracture to this ankle as a small child. The patient has taken tramadol as regularly prescribed for the pain. The patient denies any other injury. The patient denies any numbness, tingling, fever, chills, nausea, vomiting, diarrhea, constipation. She states the pain is worse with weightbearing. The patient has not used any splint, crutches, or Mohsen wrap. The patient states she is walking with a limp. REVIEW OF SYSTEMS: A 6 system review of systems was completed with positives and pertinent negatives listed in the HPI. ALLERGIES: Sulfa MEDICATIONS: Ventolin, Xanax, tramadol PMH: Anxiety, chronic pain, asthma SOCIAL HISTORY: Patient lives locally with family. She denies drug, alcohol use. She does admit to smoking currently. PHYSICAL EXAM: Vital Signs: Reviewed Nurse's notes, vital signs stable. GENERAL : This is a 27-year-old female, no acute distress, but appears in pain, well- developed, well-nourished. MENTAL STATUS: Alert, oriented to person place and time, and cooperative. MUSCULOSKELETAL: The right ankle is swollen and tender over the lateral malleolus, but the skin is intact and there is no ligamentous instability. There is mild fifth metatarsal tenderness. There is no tenderness over the rest of the foot. There is no calf or tibia/fibular tenderness. There is no visual deformity. The foot and toes are warm and well- perfused. Dorsalis pedis pulse 2+. Sensation to pain and light touch is intact. Capillary refill less than 2 seconds. RADIOLOGY: X-Ray Right Ankle: DISCUSSION: There is an age-indeterminate avulsion arising from the lateral malleolar tip. The ankle mortise appears intact. No tibial fractures are visualized. There is mild lateral soft tissue swelling IMPRESSION: Age-indeterminate lateral malleolar tip avulsion. X-Ray Right Foot: DISCUSSION: The bones and joint spaces appear intact. There is no evidence of fracture, dislocation or bony disease. There is no evidence for soft tissue swelling. IMPRESSION: Negative study. EMERGENCY DEPARTMENT COURSE: I examined the patient. X-rays of the right foot and ankle were reviewed by myself and read by radiology and reveal an age- indeterminate Lateral malleolar tip avulsion. A fracture boot was applied to the ankle under my direction and the position was satisfactory. Neurovascular status was rechecked and intact. The patient was instructed on the use of crutches. The patient is on the "No Narcotic" treatment plan list, however, with the potential for an acute fracture, I will prescribe a VERY limited supply of narcotics, as I did consult with PDMP and there were no suspicious findings. The patient was discharged home in good condition. The patient's blood pressure in the ED was normal. DIFFERENTIAL DIAGNOSIS: fracture, sprain, contusion, cellulitis, gout, and others. DIAGNOSIS: Avulsion fracture of right lateral malleolus DISCHARGE INSTRUCTIONS: ORTHOPEDIC INSTRUCTIONS: Oxycodone (OxyIR) 5mg: Take 1 pill every 6 hours as needed for breakthrough pain. Avoid alcohol, operating machinery or dangerous equipment, working on ladders or roofs, DRIVING, or situations where being under the influence may be dangerous. It is recommended to use an [id number]-gae-[id number] stool softener such as Colace, 100mg twice daily while taking this medication to avoid constipation. Ibuprofen(Motrin, Advil) may be used for fever or pain. Use 600mg every six hours as needed. Take with food. Avoid using more than 2400mg in a 24 hour period. Do not use 2400mg per day for more than three consecutive days without physician direction. Prolonged inappropriate use can lead to stomach upset or ulcers. (AND/OR) Acetaminophen(Tylenol) may be used for fever or pain. Use 1000mg every six hours as needed. Avoid using more than 3000mg in a 24 hour period. Ice compresses for 20 minutes at a time four times daily for 2-3 days. Use the crutches as instructed. Avoid all weight-bearing until cleared by orthopedics. Rest and elevate your injury. Wear the boot until you are able to follow-up with orthopedics. You may remove the boot while bathing. Return to the ER immediately for any numbness, tingling, severe pain, extreme swelling in the extremity or as needed. Call [facility], [phone], today to arrange follow up for your injury within the next week. Follow-up with your primary care physician in 2 to 3 days for a recheck of your current condition. Problem List Medical Problems: (1) Abdominal pain Status: Resolved (2) Anxiety disorder Status: Chronic (3) Asthma Status: Chronic (4) Chest pain Status: Resolved (5) Chest pain Status: Resolved (6) Costochondritis Status: Resolved (7) Costochondritis Status: Resolved (8) Flu-like symptoms Status: Resolved (9) Left wrist pain Status: Resolved (10) Pain, dental Status: Resolved (11) Urinary tract infection Status: Resolved (12) Urinary tract infection Status: Resolved Surgical Problems: (1) section Status: Resolved (2) History of knee surgery Status: Resolved (3) Hx of cholecystectomy Status: Resolved Current/Historical Medications Scheduled PRN Albuterol Hfa (Ventolin Hfa), 2 PUFFS INH Q4H PRN for Cough or Wheezing Alprazolam (Alprazolam), 0.25 MG PO BID PRN for Anxiety Oxycodone Ir (Roxicodone Ir), 1 TAB PO Q6H PRN for Pain Tramadol HCl (Tramadol HCl), 50 MG PO BID PRN for Pain Allergies Coded Allergies: Sulfa Antibiotics (Verified Allergy, Unknown, SEVERE DROWSINESS A CHILD , 08/07/17) Vital Signs Date Time Temp Pulse Resp B/P (MAP) Pulse Ox O2 Delivery O2 Flow Rate FiO2 08/07/17 11:11 88 20 128/81 96 Room Air 08/07/17 09:12 36.7 94 18 111/75 96 Room Air Departure Information Impression Primary Impression: Fx lateral malleolus-closed Dispostion Home / Self-Care Condition GOOD Prescriptions Oxycodone Ir (Roxicodone Ir) 5 Mg Tab 1 TAB PO Q6H Y for Pain, #8 TAB For Initial Treatment Prov: Solange Peck, DEVI 08/07/17 Referrals Mickey Pollack III, M.D. (PCP) Patient Instructions ED Fx Ankle Lateral Malleolus, My [facility] Additional Instructions ORTHOPEDIC INSTRUCTIONS: Oxycodone (OxyIR) 5mg: Take 1 pill every 6 hours as needed for breakthrough pain. Avoid alcohol, operating machinery or dangerous equipment, working on ladders or roofs, DRIVING, or situations where being under the influence may be dangerous. It is recommended to use an [id number]-[id number] stool softener such as Colace, 100mg twice daily while taking this medication to avoid constipation. Ibuprofen(Motrin, Advil) may be used for fever or pain. Use 600mg every six hours as needed. Take with food. Avoid using more than 2400mg in a 24 hour period. Do not use 2400mg per day for more than three consecutive days without physician direction. Prolonged inappropriate use can lead to stomach upset or ulcers. (AND/OR) Acetaminophen(Tylenol) may be used for fever or pain. Use 1000mg every six hours as needed. Avoid using more than 3000mg in a 24 hour period. Ice compresses for 20 minutes at a time four times daily for 2-3 days. Use the crutches as instructed. Avoid all weight-bearing until cleared by orthopedics. Rest and elevate your injury. Wear the boot until you are able to follow-up with orthopedics. You may remove the boot while bathing. Return to the ER immediately for any numbness, tingling, severe pain, extreme swelling in the extremity or as needed. Call [facility], [phone], today to arrange follow up for your injury within the next week. Follow-up with your primary care physician in 2 to 3 days for a recheck of your current condition. Problem Qualifiers Primary Impression: Fx lateral malleolus-closed Encounter type: initial encounter Fracture alignment: nondisplaced Laterality: right Qualified Codes: S82.64XA - Nondisplaced fracture of lateral malleolus of right fibula, initial encounter for closed fracture
[2017-08-07 11:11] VITALS: BP 128/81; PULSE 88; O2SAT 96
== END 2017-08-07 11:20 | disposition home or self-care (01) ==
LOC: C.EDB 09:10 → C.EDC 11:20
DX: S82.64XA Nondisplaced fracture of lateral malleolus of right fibula, initial encounter for closed fracture (principal); X50.9XXA Other and unspecified overexertion or strenuous movements or postures, initial encounter; F41.9 Anxiety disorder, unspecified; G89.29 Other chronic pain; J45.909 Unspecified asthma, uncomplicated

== ENCOUNTER 2017-08-16 17:21 | Emergency (ER) | payer OTHER ==
[~2017-08-16] VITALS: Ht 175.3 cm; Wt 121.5 kg
[~2017-08-16 17:21] MED LIST changes: -AMT/50 PO; -HYDR-3126 PO; -MTR800 PO; +OXYC1TAB3 PO
[2017-08-16 17:33] VITALS: TEMP 36.9; Ht 175.3 cm; Wt 121.5 kg
[2017-08-16] MEDS ORDERED: ACETAMINOPHEN 500 MG TAB PO STA (19:20)
[2017-08-16] MEDS ORDERED: LORAZEPAM 1 MG TAB PO STA (19:20)
[2017-08-16] MEDS ORDERED: IBUPROFEN 200 MG TAB PO STA (19:20)
[2017-08-16] MEDS ORDERED: SODIUM CHLORIDE 0.9% 1000ML 1,000 ML IV STA (19:20)
--- NOTE | 2017-08-16 19:23 | EMERGENCY ROOM VISIT NOTE ---
History Report prepared by Santana: Gurmeet Glass Under the Supervision of: Dr. Gaurav Rose M.D. First contact with patient: 18:57 Chief Complaint: SYNCOPE (NEAR SYNCOPE) Stated Complaint: HOT FEELING,LEFT ARM NUMB,SOB,DIZZY,LIGHT FLASHES Nursing Triage Summary: pt stood up this am and felt dizzy and saw spots, did not lose consiousness, developed cp 2 hours ago History of Present Illness The patient is a 27 year old white female with a past medical history of A-Fib, anxiety, knee surgery, 3 C-Sections, cholecystectomy, and right ankle fracture who presents to the ED with a cc of a near syncopal episode that occurred at 0730. She rates her discomfort as an 8/10 in severity. The patient states that she felt uncomfortable all day today. She reports that she felt as if she was gonna stop breathing, which caused her to stand up fast. The patient states that she then experienced hot flashes through her whole body. She states that she saw white for a while, but "my friends snapped me out of it". The patient states that she called her PCP after who told her to report to the ED. She states that she still feels uncomfortable in the ED. The patient reports that she has been eating normally. She admits that she had her LNMP 3 weeks ago. The patient reports that she currently takes Tramadol for her knee and Xanax for anxiety. Positive hot flashes, seeing white, unable to breathe. Negative nausea , vomiting. Source of History: patient Onset: 0730 Position: other (global) Symptom Intensity: 8/10 Quality: other (seeing white, hot flash) Timing: other (sudden) Associated Symptoms: + SOB, No nausea, No vomiting Review of Systems See HPI for pertinent positives and negatives. A total of ten systems were reviewed and were otherwise negative. Past Medical & Surgical Medical Problems: (1) Abdominal pain (2) Anxiety disorder (3) Asthma (4) Chest pain (5) Chest pain (6) Costochondritis (7) Costochondritis (8) Flu-like symptoms (9) Left wrist pain (10) Pain, dental (11) Urinary tract infection (12) Urinary tract infection (13) Uterine contractions at greater than 20 weeks of gestation Surgical Problems: (1) section (2) History of knee surgery (3) Hx of cholecystectomy Family History Cancer Gallbladder disease Hypertension Lung disease Social History Smoking Status: Current Every Day Smoker Alcohol Use: none Drug Use: none Marital Status: in relationship Housing Status: lives with significant other Occupation Status: employed Current/Historical Medications Scheduled PRN Albuterol Hfa (Ventolin Hfa), 2 PUFFS INH Q4H PRN for Cough or Wheezing Alprazolam (Alprazolam), 0.25 MG PO BID PRN for Anxiety Cyclobenzaprine Hcl (Flexeril), 10 MG PO TID PRN for Muscle Spasms Tramadol HCl (Tramadol HCl), 50 MG PO BID PRN for Pain Allergies Coded Allergies: Sulfa Antibiotics (Verified Allergy, Unknown, SEVERE DROWSINESS A CHILD , 08/16/17) Physical Exam Vital Signs Date Time Temp Pulse Resp B/P (MAP) Pulse Ox O2 Delivery O2 Flow Rate FiO2 08/16/17 23:25 73 18 118/75 98 08/16/17 21:34 78 18 123/77 99 Room Air 08/16/17 17:33 36.9 86 18 132/86 100 Room Air Physical Exam GENERAL: Awake, alert, well-appearing, NAD HENT: Normocephalic, atraumatic. EYES: Normal conjunctiva. Sclera non-icteric. NECK: Supple. No nuchal rigidity. FROM. RESPIRATORY: CTAB, no rhonchi, wheezing, crackles CARDIAC: RRR, no MRG ABDOMEN: Soft, NTND, BS+ MSK: No chest wall TTP, bilateral LE edema, not asymmetric. RLE has a walking boot. NV intact. NEURO: GCS 15, CN 2-12 intact, moves all 4s on command SKIN: No rash or jaundice noted. Medical Decision & Procedures ER Provider Diagnostic Interpretation: X-ray: Per my interpretation, radiologist review. CHEST ONE VIEW PORTABLE CLINICAL HISTORY: 27 years-old Female presenting with chest pain. TECHNIQUE: Portable upright AP view of the chest was obtained. COMPARISON: 06/25/2017. FINDINGS: Cardiomediastinal silhouette normal. Lungs and pleural spaces clear. Osseous structures normal. Upper abdomen normal. IMPRESSION: 1. No acute cardiopulmonary disease. Electronically signed by: Chris John M.D. 08/16/2017 10:29 PM Dictated Date/Time: 08/16/2017 10:29 PM Laboratory Results 08/16/17 19:48 Red Blood Count 4.70, Mean Corpuscular Volume 83.6, Mean Corpuscular Hemoglobin 28.7, Mean Corpuscular Hemoglobin Concent 34.4, Mean Platelet Volume 9.2, Neutrophils (%) (Auto) 59.8, Lymphocytes (%) (Auto) 32.9, Monocytes (%) (Auto) 5.0, Eosinophils (%) (Auto) 1.7, Basophils (%) (Auto) 0.2, Neutrophils # (Auto) 6.12, Lymphocytes # (Auto) 3.36, Monocytes # (Auto) 0.51, Eosinophils # (Auto) 0.17, Basophils # (Auto) 0.02 08/16/17 19:48 Test 08/16/17 19:48 08/16/17 21:31 08/16/17 21:35 White Blood Count 10.22 K/uL (4.8-10.8) Red Blood Count 4.70 M/uL (4.2-5.4) Hemoglobin 13.5 g/dL (12.0-16.0) Hematocrit 39.3 % (37-47) Mean Corpuscular Volume 83.6 fL (80-100) Mean Corpuscular Hemoglobin 28.7 pg (25-34) Mean Corpuscular Hemoglobin Concent 34.4 g/dl (32-36) Platelet Count 262 K/uL (130-400) Mean Platelet Volume 9.2 fL (7.4-10.4) Neutrophils (%) (Auto) 59.8 % Lymphocytes (%) (Auto) 32.9 % Monocytes (%) (Auto) 5.0 % Eosinophils (%) (Auto) 1.7 % Basophils (%) (Auto) 0.2 % Neutrophils # (Auto) 6.12 K/uL (1.4-6.5) Lymphocytes # (Auto) 3.36 K/uL (1.2-3.4) Monocytes # (Auto) 0.51 K/uL (0.11-0.59) Eosinophils # (Auto) 0.17 K/uL (0-0.5) Basophils # (Auto) 0.02 K/uL (0-0.2) RDW Standard Deviation 40.4 fL (36.4-46.3) RDW Coefficient of Variation 13.3 % (11.5-14.5) Immature Granulocyte % (Auto) 0.4 % Immature Granulocyte # (Auto) 0.04 K/uL (0.00-0.02) Anion Gap 5.0 mmol/L (3-11) Est Creatinine Clear Calc Drug Dose 178.6 ml/min Estimated GFR () 140.3 Estimated GFR (Non- 121.1 BUN/Creatinine Ratio 18.4 (10-20) Calcium Level 9.0 mg/dl (8.5-10.1) Magnesium Level 2.1 mg/dl (1.8-2.4) Urine Color YELLOW Urine Appearance CLEAR (CLEAR) Urine pH 6.5 (4.5-7.5) Urine Specific [place] 1.029 (1.000-1.030) Urine Protein 2+ (NEG) Urine Glucose (UA) NEG (NEG) Urine Ketones NEG (NEG) Urine Occult Blood NEG (NEG) Urine Nitrite NEG (NEG) Urine Bilirubin NEG (NEG) Urine Urobilinogen NEG (NEG) Urine Leukocyte Esterase SMALL (NEG) Urine WBC (Auto) 5-10 /hpf (0-5) Urine RBC (Auto) 0-4 /hpf (0-4) Urine Hyaline Casts (Auto) 1-5 /lpf (0-5) Urine Epithelial Cells (Auto) >30 /lpf (0-5) Urine Bacteria (Auto) 1+ (NEG) Urine Test NEG (NEG) Laboratory results reviewed by me Medications Administered Medications (Trade) Dose Ordered Sig/Ev Route Start Time Stop Time Status Last Admin Dose Admin Sodium Chloride 1,000 ml @ 999 mls/hr Q1H1M STAT IV 08/16/17 19:20 08/16/17 20:20 DC 08/16/17 19:33 999 MLS/HR Ibuprofen (Advil Tab) 400 mg NOW STAT PO 08/16/17 19:20 08/16/17 19:22 DC 08/16/17 19:32 400 MG Acetaminophen (Tylenol Tab) 1,000 mg NOW STAT PO 08/16/17 19:20 08/16/17 19:22 DC 08/16/17 19:33 1,000 MG Lorazepam (Ativan Tab) 1 mg NOW STAT PO 08/16/17 19:20 08/16/17 19:22 DC 08/16/17 19:31 1 MG Cyclobenzaprine HCl (FLEXERIL 10MG Home Pack) 1 homepack 2300 ONCE PO 08/16/17 23:00 08/16/17 23:01 DC 08/16/17 23:24 1 HOMEPACK ECG Indication: syncope Rate (beats per minute): 84 Rhythm: normal sinus Findings: other (Normal axis and intervals. No ST changes or TWI) ED Course 1900: The patient was evaluated in room B12B. A complete history and physical exam was performed. 2244: I reevaluated the patient. Discussed results and discharge instructions: She verbalized understanding and agreement. The patient is ready for discharge. Medical Decision The differential diagnosis includes etiologies such as vasovagal event, infection, hypoglycemia, electrolyte abnormalities, cardiac sources, intracerebral event, toxicologic, neurologic, as well as others were entertained. Patient evaluated at the bedside. H/o DANIEL. Hx most consistent w/ orthostatics as patient sat up very quickly and had quick onset of symptoms and feelings of pending doom, possibly concomitant anxiety. Patient EKG and blood work unremearkable. CXR clear. No neuro deficits. Patient tolerated PO. Feeling much improved after IVF. Safe for d/c. D/c'ed to home. Medication Reconcilliation Current Medication List: was personally reviewed by me Blood Pressure Screening Patient's blood pressure: Normal blood pressure Impression Primary Impression: Orthostatic dizziness Additional Impression: Anxiety Scribe Attestation The scribe's documentation has been prepared under my direction and personally reviewed by me in its entirety. I confirm that the note above accurately reflects all work, treatment, procedures, and medical decision making performed by me. Departure Information Dispostion Home / Self-Care Prescriptions Cyclobenzaprine Hcl (FLEXERIL) 10 Mg Tab 10 MG PO TID Y for Muscle Spasms, #21 TAB Prov: Gaurav Rose M.D. 08/16/17 Referrals Mickey Pollack III, M.D. (PCP) Patient Instructions Anxiety Body Response, My [facility] Additional Instructions Please return to the emergency department if you have worsening or recurrent symptoms not amenable to at-home treatment. Please call for a follow-up appointment with her primary care physician. Please take your medications as prescribed. If you have other concerns and/or complaints please feel free to also call your primary care physician's office or return the ED for further evaluation, management, and treatment. You may take 600 mg Ibuprofen every 6 hours as needed for pain/congestion with food for no more than 2 consecutive days. You may take tylenol 1000mg every 6 hours as needed for pain/congestion. You may take motrin and tylenol separately or at the same time. Take prednisone as prescribed preferably in AM and w/ food. Use inhalers 2 puffs every 6 hours x 1 day then 1 puff every 6 hrs x 1 day then as needed. You have been examined and treated today on an emergency basis only. This is not a substitute for, or an effort to provide, complete comprehensive medical care. It is impossible to recognize and treat all injuries or illnesses in a single emergency department visit. It is therefore important that you follow up closely with [facility]. Call as soon as possible for an appointment. Thank you for your time and consideration. I look forward to speaking with you again soon. Please don't hesitate to call us if you have any questions. School Instructions Return To School: 1 day Problem Qualifiers
[2017-08-16 20:00] LABS: BASO % 0.2 %; BASO ABS # 0.02 K/uL (0-0.2); COMPLETE YES; EOS % 1.7 %; HEMATOCRIT 39.3 % (37-47); IG% 0.4 %; LYMPH % 32.9 %; LYMPH ABS # 3.36 K/uL (1.2-3.4); MEAN CELL VOLUME 83.6 fL (80-100); MEAN CORPUSCULAR HEMOGLOBIN 28.7 pg (25-34); MEAN CORPUSCULAR HGB CONC 34.4 g/dl (32-36); MEAN PLATELET VOLUME 9.2 fL (7.4-10.4); NEUT % 59.8 %; PLATELET COUNT 262 K/uL (130-400); WHITE BLOOD COUNT 10.22 K/uL (4.8-10.8)
[2017-08-16 20:17] LABS: BUN/CREATININE RATIO 18.4 (10-20); CREATININE 0.66 mg/dl (0.60-1.20); MAGNESIUM 2.1 mg/dl (1.8-2.4)
[2017-08-16] MEDS ORDERED: PRED50TA PO (21:51)
[2017-08-16 22:00] LABS: URINE APPEARANCE CLEAR (CLEAR); URINE BILIRUBIN NEG (NEG); URINE COLOR YELLOW; URINE EPITHELIAL CELL AUTO >30 /lpf (0-5); URINE NITRITE NEG (NEG); URINE PH 6.5 (4.5-7.5); URINE SPECIFIC GRAVITY 1.029 (1.000-1.030); UROBILINOGEN NEG (NEG); ZZUR CULT IF INDIC CLEAN CATCH YES
[2017-08-16 22:02] LABS: MANUAL MICROSCOPIC REQUIRED? NO; REVIEW REQ? YES
[2017-08-16] MEDS ORDERED: CYCL10TA6 PO (22:25)
--- NOTE | 2017-08-16 22:30 | DIAGNOSTIC IMAGING REPORT ---
CHEST ONE VIEW PORTABLE CLINICAL HISTORY: 27 years-old Female presenting with chest pain. TECHNIQUE: Portable upright AP view of the chest was obtained. COMPARISON: 06/25/2017. FINDINGS: Cardiomediastinal silhouette normal. Lungs and pleural spaces clear. Osseous structures normal. Upper abdomen normal. IMPRESSION: 1. No acute cardiopulmonary disease. Electronically signed by: Chris John M.D. 08/16/2017 10:29 PM Dictated Date/Time: 08/16/2017 10:29 PM
[2017-08-16] MEDS ORDERED: FLEXERIL HOME PACK 10 MG VIAL PO ONE (23:00)
[2017-08-16 23:25] VITALS: BP 118/75; PULSE 73; O2SAT 98
== END 2017-08-16 23:27 | disposition home or self-care (01) ==
LOC: C.EDB 17:23
DX: R55 Syncope and collapse (principal); F41.9 Anxiety disorder, unspecified; R42 Dizziness and giddiness; Z79.899 Other long term (current) drug therapy; J45.909 Unspecified asthma, uncomplicated; Z87.440 Personal history of urinary (tract) infections; Z90.49 Acquired absence of other specified parts of digestive tract; F17.210 Nicotine dependence, cigarettes, uncomplicated; Z80.9 Family history of malignant neoplasm, unspecified; Z82.49 Family history of ischemic heart disease and other diseases of the circulatory system

== ENCOUNTER 2017-08-28 13:31 | Emergency (ER) | payer OTHER ==
[~2017-08-28] VITALS: Ht 175.3 cm; Wt 119.2 kg
[~2017-08-28 13:31] MED LIST changes: -OXYC1TAB3 PO
[2017-08-28 13:37] VITALS: Ht 175.3 cm; Wt 119.2 kg
[2017-08-28] MEDS ORDERED: TRAMADOL HCL 50 MG TAB PO STA (14:30)
[2017-08-28] MEDS ORDERED: KETOROLAC TROMETHAMINE 30 MG/ML VIAL IV STA (14:30)
[2017-08-28] MEDS ORDERED: ACETAMINOPHEN 500 MG TAB PO STA (14:30)
[2017-08-28] MEDS ORDERED: ONDANSETRON INJ 2 MG/ML 2 ML VIAL IV STA (14:30)
[2017-08-28 14:47] VITALS: O2SAT 98
--- NOTE | 2017-08-28 15:14 | EMERGENCY ROOM VISIT NOTE ---
History Report prepared by Santana: Ken Faustin Under the Supervision of: Dr. Gaurav Rose M.D. First contact with patient: 14:01 Chief Complaint: CARDIAC ASSESSMENT Stated Complaint: CHEST PAIN History of Present Illness The patient is a 27 year old white female with a past medical history of asthma and anxiety who presents to the ED with a cc of intermittent left sided chest pain beginning last night that lasted a couple hours, and it is back now. Positive left arm pain and finger tingling. Negative recent trips, leg swelling , nausea, vomiting, and recent falls or trauma. The patient is currently a smoker. She has been eating and drinking well, and her LNMP was three weeks ago. She has a family history of heart attack and cardiac arrest. Source of History: patient Onset: last night Position: chest (left) Timing: intermittent Associated Symptoms: No nausea, No vomiting Note: Associated symptoms: left arm pain and finger tingling Review of Systems See HPI for pertinent positives and negatives. A total of ten systems were reviewed and were otherwise negative. Past Medical & Surgical Medical Problems: (1) Abdominal pain (2) Anxiety disorder (3) Asthma (4) Chest pain (5) Chest pain (6) Costochondritis (7) Costochondritis (8) Flu-like symptoms (9) Left wrist pain (10) Pain, dental (11) Urinary tract infection (12) Urinary tract infection (13) Uterine contractions at greater than 20 weeks of gestation Surgical Problems: (1) section (2) History of knee surgery (3) Hx of cholecystectomy Family History Cancer Gallbladder disease Hypertension Lung disease Social History Smoking Status: Never Smoker Alcohol Use: none Drug Use: none Marital Status: in relationship Housing Status: lives with significant other Occupation Status: employed Current/Historical Medications Scheduled PRN Albuterol Hfa (Ventolin Hfa), 2 PUFFS INH Q4H PRN for Cough or Wheezing Alprazolam (Alprazolam), 0.25 MG PO BID PRN for Anxiety Tramadol HCl (Tramadol HCl), 50 MG PO BID PRN for Pain Allergies Coded Allergies: Sulfa Antibiotics (Verified Allergy, Unknown, SEVERE DROWSINESS A CHILD , 08/28/17) Physical Exam Vital Signs Date Time Temp Pulse Resp B/P (MAP) Pulse Ox O2 Delivery O2 Flow Rate FiO2 08/28/17 16:00 112/80 08/28/17 15:50 84 27 96 08/28/17 15:31 101/64 08/28/17 15:20 87 08/28/17 15:20 88 19 96 08/28/17 15:15 127/77 08/28/17 15:01 93 16 95 Room Air 08/28/17 14:47 98 Room Air 08/28/17 13:41 97 Room Air 08/28/17 13:37 37.0 107 18 120/72 97 Room Air Physical Exam GENERAL: Awake, alert, anxious-appearing HENT: Normocephalic, atraumatic. EYES: Normal conjunctiva. Sclera non-icteric. NECK: Supple. No nuchal rigidity. FROM. RESPIRATORY: CTAB, no rhonchi, wheezing, crackles CARDIAC: RRR, no MRG ABDOMEN: Soft, NTND, BS+ MSK: Reproducible left chest wall tenderness no crepitus or ecchymosis, no LE edema or calf pain NEURO: GCS 15, CN 2-12 intact, moves all 4s on command SKIN: No rash or jaundice noted. Medical Decision & Procedures ER Provider Diagnostic Interpretation: Radiology results as stated below per my review and radiologist interpretation: CHEST 2 VIEWS ROUTINE CLINICAL HISTORY: 27 years-old Female presenting with CHEST PAIN. TECHNIQUE: PA and lateral views of the chest were obtained. COMPARISON: 08/16/2017. FINDINGS: Cardiomediastinal silhouette normal. Lungs and pleural spaces clear. Osseous structures normal. Upper abdomen normal. IMPRESSION: 1. No acute cardiopulmonary disease. Electronically signed by: Chris John M.D. 08/28/2017 3:26 PM Dictated Date/Time: 08/28/2017 3:25 PM Laboratory Results 08/28/17 14:55 Red Blood Count 4.82, Mean Corpuscular Volume 83.2, Mean Corpuscular Hemoglobin 28.4, Mean Corpuscular Hemoglobin Concent 34.2, Mean Platelet Volume 9.9, Neutrophils (%) (Auto) 66.6, Lymphocytes (%) (Auto) 25.3, Monocytes (%) (Auto) 5.8, Eosinophils (%) (Auto) 1.9, Basophils (%) (Auto) 0.2, Neutrophils # (Auto) 5.74, Lymphocytes # (Auto) 2.18, Monocytes # (Auto) 0.50, Eosinophils # (Auto) 0.16, Basophils # (Auto) 0.02 08/28/17 14:55 Test 08/28/17 14:55 White Blood Count 8.62 K/uL (4.8-10.8) Red Blood Count 4.82 M/uL (4.2-5.4) Hemoglobin 13.7 g/dL (12.0-16.0) Hematocrit 40.1 % (37-47) Mean Corpuscular Volume 83.2 fL (80-100) Mean Corpuscular Hemoglobin 28.4 pg (25-34) Mean Corpuscular Hemoglobin Concent 34.2 g/dl (32-36) Platelet Count 241 K/uL (130-400) Mean Platelet Volume 9.9 fL (7.4-10.4) Neutrophils (%) (Auto) 66.6 % Lymphocytes (%) (Auto) 25.3 % Monocytes (%) (Auto) 5.8 % Eosinophils (%) (Auto) 1.9 % Basophils (%) (Auto) 0.2 % Neutrophils # (Auto) 5.74 K/uL (1.4-6.5) Lymphocytes # (Auto) 2.18 K/uL (1.2-3.4) Monocytes # (Auto) 0.50 K/uL (0.11-0.59) Eosinophils # (Auto) 0.16 K/uL (0-0.5) Basophils # (Auto) 0.02 K/uL (0-0.2) RDW Standard Deviation 41.1 fL (36.4-46.3) RDW Coefficient of Variation 13.6 % (11.5-14.5) Immature Granulocyte % (Auto) 0.2 % Immature Granulocyte # (Auto) 0.02 K/uL (0.00-0.02) Prothrombin Time 10.6 SECONDS (9.0-12.0) Prothromb Time International Ratio 1.0 (0.9-1.1) Activated Partial Thromboplast Time 27.0 SECONDS (21.0-31.0) Partial Thromboplastin Ratio 1.0 Anion Gap 8.0 mmol/L (3-11) Est Creatinine Clear Calc Drug Dose 171.5 ml/min Estimated GFR () 138.9 Estimated GFR (Non- 119.9 BUN/Creatinine Ratio 20.9 (10-20) Calcium Level 9.4 mg/dl (8.5-10.1) Phosphorus Level 2.0 mg/dl (2.5-4.9) Magnesium Level 1.8 mg/dl (1.8-2.4) Troponin I < 0.015 ng/ml (0-0.045) Pro-B-Type Natriuretic Peptide 9 pg/ml (0-450) Laboratory results reviewed by me Medications Administered Medications (Trade) Dose Ordered Sig/Ev Route Start Time Stop Time Status Last Admin Dose Admin Ondansetron HCl (Zofran Inj) 4 mg NOW STAT IV 08/28/17 14:30 08/28/17 14:33 DC 08/28/17 15:17 4 MG Acetaminophen (Tylenol Tab) 1,000 mg NOW STAT PO 08/28/17 14:30 08/28/17 14:33 DC 08/28/17 15:23 1,000 MG Ketorolac Tromethamine (Toradol Inj) 30 mg NOW STAT IV 08/28/17 14:30 08/28/17 14:33 DC 08/28/17 15:17 30 MG Tramadol HCl (Ultram Tab) 25 mg NOW STAT PO 08/28/17 14:30 08/28/17 14:33 DC 08/28/17 15:15 25 MG ECG Indication: chest pain Rate (beats per minute): 95 Rhythm: normal sinus Findings: other (No STS changes or TWIs) ED Course 1414: The patient was evaluated in room A10. A complete history and physical exam was performed. 1620: I reevaluated the patient. Discussed results and discharge instructions: She verbalized understanding and agreement. The patient is ready for discharge. Medical Decision The patient is a 27 year old white female with a past medical history of asthma and anxiety who presents to the ED with a cc of intermittent left sided chest pain beginning last night that lasted a couple hours, and it is back now. Positive left arm pain and finger tingling. Negative recent trips, leg swelling , nausea, vomiting, and recent falls or trauma. Triage Nursing notes reviewed. The patient's presentation and history were concerning for etiologies such as cardiac ischemia, aortic dissection, pulmonary embolism, pneumonia, pneumothorax , musculoskeletal, infections, pericarditis, myocarditis, esophageal rupture, gastrointestinal, as well as others were entertained. Patient was seen and evaluated the bedside. Patient was also seen approximately 10 days ago for similar symptoms. Patient states she feels some left-sided chest pain with some arm pain. Patient does have a history of smoking. No other history of hypertension, diabetes, or hyperlipidemia. Patient has no family history within her parents or siblings unexplained or MIs. Patient does smoke. Patient denies any recent car or plane travel. Patient has no prior history of DVT or PE in the past. Patient did have blood work, EKG, troponin, chest x-ray were completed along with supportive care. Patient's pain is reproducible. EKG and trop unremarkable. Less likely ACS. Wells 1 w/ intermittent, howvever, now resolved tachycardia. PE less likely. Has f/u w/ Dr. Pollack tomorrow. Given d/c, f/u, and return instructions. D/c'ed to home. Medication Reconcilliation Current Medication List: was personally reviewed by me Blood Pressure Screening Patient's blood pressure: Normal blood pressure Impression Primary Impression: Chest pain Additional Impression: Encounter for smoking cessation counseling Scribe Attestation The scribe's documentation has been prepared under my direction and personally reviewed by me in its entirety. I confirm that the note above accurately reflects all work, treatment, procedures, and medical decision making performed by me. Departure Information Dispostion Home / Self-Care Referrals Mickey Pollack III, M.D. (PCP) Forms IMPORTANT VISIT INFORMATION Patient Instructions Chest Pain - [facility], ED Stress React, My [facility] Additional Instructions Please return to the emergency department if you have worsening or recurrent symptoms not amenable to at-home treatment. Please call for a follow-up appointment with her primary care physician. Please take your medications as prescribed. If you have other concerns and/or complaints please feel free to also call your primary care physician's office or return the ED for further evaluation, management, and treatment. You may take 600 mg Ibuprofen every 6 hours as needed for pain with food for no more than 2 consecutive days. You may take tylenol 1000mg every 6 hours as needed for pain. You may take motrin and tylenol separately or at the same time. You have been examined and treated today on an emergency basis only. This is not a substitute for, or an effort to provide, complete comprehensive medical care. It is impossible to recognize and treat all injuries or illnesses in a single emergency department visit. It is therefore important that you follow up closely with [facility]. Call as soon as possible for an appointment. Thank you for your time and consideration. I look forward to speaking with you again soon. Please don't hesitate to call us if you have any questions. Problem Qualifiers Primary Impression: Chest pain Chest pain type: unspecified Qualified Codes: R07.9 - Chest pain, unspecified
--- NOTE | 2017-08-28 15:27 | DIAGNOSTIC IMAGING REPORT ---
CHEST 2 VIEWS ROUTINE CLINICAL HISTORY: 27 years-old Female presenting with CHEST PAIN. TECHNIQUE: PA and lateral views of the chest were obtained. COMPARISON: 08/16/2017. FINDINGS: Cardiomediastinal silhouette normal. Lungs and pleural spaces clear. Osseous structures normal. Upper abdomen normal. IMPRESSION: 1. No acute cardiopulmonary disease. Electronically signed by: Chris John M.D. 08/28/2017 3:26 PM Dictated Date/Time: 08/28/2017 3:25 PM
[2017-08-28 15:28] LABS: BASO % 0.2 %; BASO ABS # 0.02 K/uL (0-0.2); COMPLETE YES; EOS % 1.9 %; HEMATOCRIT 40.1 % (37-47); IG% 0.2 %; LYMPH % 25.3 %; LYMPH ABS # 2.18 K/uL (1.2-3.4); MEAN CELL VOLUME 83.2 fL (80-100); MEAN CORPUSCULAR HEMOGLOBIN 28.4 pg (25-34); MEAN CORPUSCULAR HGB CONC 34.2 g/dl (32-36); MEAN PLATELET VOLUME 9.9 fL (7.4-10.4); MONO % 5.8 %; NEUT % 66.6 %; PLATELET COUNT 241 K/uL (130-400); RED BLOOD COUNT 4.82 M/uL (4.2-5.4); WHITE BLOOD COUNT 8.62 K/uL (4.8-10.8)
[2017-08-28 15:39] LABS: PROTHROMBIN TIME (PATIENT) 10.6 SECONDS (9.0-12.0)
[2017-08-28 15:44] LABS: BLOOD UREA NITROGEN 14 mg/dl (7-18); BUN/CREATININE RATIO 20.9 (10-20); CALCIUM 9.4 mg/dl (8.5-10.1); CARBON DIOXIDE 22 mmol/L (21-32); CHLORIDE 108 mmol/L (98-107); CREATININE 0.68 mg/dl (0.60-1.20); GLUCOSE 124 mg/dl (70-99); POTASSIUM 3.9 mmol/L (3.5-5.1); SODIUM 138 mmol/L (136-145)
[2017-08-28 16:13] LABS: MAGNESIUM 1.8 mg/dl (1.8-2.4)
[2017-08-28 16:43] VITALS: BP 115/62; PULSE 81; TEMP 37; O2SAT 96
== END 2017-08-28 16:44 | disposition home or self-care (01) ==
LOC: C.EDB 13:33 → C.EDA 16:44
DX: R07.9 Chest pain, unspecified (principal); Z71.6 Tobacco abuse counseling; F41.9 Anxiety disorder, unspecified; J45.909 Unspecified asthma, uncomplicated; Z87.440 Personal history of urinary (tract) infections; Z90.49 Acquired absence of other specified parts of digestive tract; Z98.890 Other specified postprocedural states; Z88.2 Allergy status to sulfonamides; Z80.9 Family history of malignant neoplasm, unspecified; Z83.79 Family history of other diseases of the digestive system; Z82.49 Family history of ischemic heart disease and other diseases of the circulatory system

== ENCOUNTER 2017-09-20 21:03 | Emergency (ER) | payer OTHER ==
[~2017-09-20] VITALS: Ht 175.3 cm; Wt 121.0 kg
[2017-09-20 21:09] VITALS: TEMP 36.8; Ht 175.3 cm; Wt 121.0 kg
[2017-09-20 21:23] VITALS: O2SAT 99
[2017-09-20] MEDS ORDERED: AMT/50 PO (21:36)
[2017-09-20] MEDS ORDERED: XNX25 PO (21:49)
[2017-09-20] MEDS ORDERED: VNTHFA/IN INH (21:49)
[2017-09-20] MEDS ORDERED: ULT50 PO (21:49)
[2017-09-20 21:53] LABS: BASO % 0.2 %; BASO ABS # 0.02 K/uL (0-0.2); COMPLETE YES; IG% 0.2 %; LYMPH % 28.8 %; LYMPH ABS # 2.86 K/uL (1.2-3.4); MEAN CELL VOLUME 82.6 fL (80-100); MEAN CORPUSCULAR HEMOGLOBIN 28.1 pg (25-34); MEAN PLATELET VOLUME 9.3 fL (7.4-10.4); NEUT % 61.8 %; PLATELET COUNT 245 K/uL (130-400); RED BLOOD COUNT 4.84 M/uL (4.2-5.4); WHITE BLOOD COUNT 9.92 K/uL (4.8-10.8)
[2017-09-20 22:11] LABS: BLOOD UREA NITROGEN 19 mg/dl (7-18); BUN/CREATININE RATIO 22.4 (10-20); CALCIUM 9.3 mg/dl (8.5-10.1); CARBON DIOXIDE 25 mmol/L (21-32); CHLORIDE 107 mmol/L (98-107); CREATININE 0.84 mg/dl (0.60-1.20); GLUCOSE 87 mg/dl (70-99); SODIUM 139 mmol/L (136-145)
--- NOTE | 2017-09-20 22:12 | DIAGNOSTIC IMAGING REPORT ---
CHEST ONE VIEW PORTABLE CLINICAL HISTORY: Atypical chest pain COMPARISON STUDY: 08/28/2017 FINDINGS: The cardiac and mediastinal contours are normal. There is no evidence of focal pulmonary consolidation. There is no evidence of failure. No pleural effusions are visualized.[ IMPRESSION: No active disease in the chest. Electronically signed by: Rolly Stock M.D. 09/20/2017 10:11 PM Dictated Date/Time: 09/20/2017 10:11 PM
[2017-09-20 22:16] LABS: CKMB/CK RATIO 0.9 (0-3.0)
--- NOTE | 2017-09-21 00:08 | EMERGENCY ROOM VISIT NOTE ---
History Report prepared by Santana: Farhana Woods Under the Supervision of: Gail HookO. First contact with patient: 21:12 Chief Complaint: CARDIAC ASSESSMENT Stated Complaint: HEART MONITOR GOES OFF, CHEST PAIN- CARDIAC HX History of Present Illness The patient is a 27 year old female who presents to the Emergency Room for a cardiac assessment. The patient has been having intermittent stabbing chest pains for the past several months. She has followed up with her PCP for this and was placed on a child monitor 7 days ago. Today around 5pm the patient was at [facility] when she suddenly started to feel really weak. Her lips and fingers turned blue and her heart monitor went off. She denies any chest pain at that time. She did not pass out and remembers the entire event. She states that it lasted for about 15 minutes and resolved. The patient reports that she is currently having her chronic left sided stabbing chest pain. She rates her pain as a 7/10 in severity. Pt denies headache, sore throat, change in vision, fevers, shortness of breath, nausea, vomiting, diarrhea, pain with urination, and melena. She denies any history of clots. No swelling or legs, coughing up blood, recent trips, recent surgeries. She has not followed up with cardiology. Source of History: patient Onset: [employer] Position: chest Symptom Intensity: 7/10 Quality: other (stabbing) Timing: other (episode) Associated Symptoms: + weakness, No LOC, No headache, No sorethroat, No SOB , No nausea, No vomiting, No melena, No diarrhea, No urinary symptoms Review of Systems See HPI for pertinent positives & negatives. A total of 10 systems reviewed and were otherwise negative. Past Medical & Surgical Medical Problems: (1) Abdominal pain (2) Anxiety disorder (3) Asthma (4) Chest pain (5) Chest pain (6) Costochondritis (7) Costochondritis (8) Flu-like symptoms (9) Left wrist pain (10) Pain, dental (11) Urinary tract infection (12) Urinary tract infection (13) Uterine contractions at greater than 20 weeks of gestation Surgical Problems: (1) section (2) History of knee surgery (3) Hx of cholecystectomy Family History Cancer Gallbladder disease Hypertension Lung disease Social History Smoking Status: Current Every Day Smoker Alcohol Use: none Drug Use: none Marital Status: in relationship Housing Status: lives with significant other Occupation Status: employed Current/Historical Medications Scheduled Amitriptyline HCl (Amitriptyline HCl), 50 MG PO HS Scheduled PRN Albuterol Hfa (Ventolin Hfa), 2 PUFFS INH Q4H PRN for Cough or Wheezing Alprazolam (Alprazolam), 0.25 MG PO BID PRN for Anxiety Tramadol HCl (Tramadol HCl), 50 MG PO BID PRN for Pain Allergies Coded Allergies: Sulfa Antibiotics (Verified Allergy, Unknown, SEVERE DROWSINESS A CHILD , 08/28/17) Physical Exam Vital Signs Date Time Temp Pulse Resp B/P (MAP) Pulse Ox O2 Delivery O2 Flow Rate FiO2 09/20/17 21:25 100 09/20/17 21:23 99 Room Air 09/20/17 21:09 36.8 109 20 126/78 99 Room Air Physical Exam GENERAL: Sitting up in bed, disheveled, alert, well appearing, well nourished, no distress, non-toxic EYE EXAM: normal conjunctiva. OROPHARYNX: no exudate, no erythema, lips, buccal mucosa, and tongue normal and mucous membranes are moist NECK: supple, no nuchal rigidity, no adenopathy, non-tender LUNGS: Clear to auscultation. Normal chest wall mechanics HEART: no murmurs, S1 normal and S2 normal CHEST: Reproducible anterior chest wall pain. ABDOMEN: abdomen soft, non-tender, normo-active bowel sounds, no masses, no rebound or guarding. BACK: Back is symmetrical on inspection and there is no deformity, no midline tenderness, no CVA tenderness. SKIN: no rashes and no bruising, multiple tattoos on back. UPPER EXTREMITIES: upper extremities are grossly normal. LOWER EXTREMITIES: No pitting edema. legs are equal bilateral NEURO EXAM: Normal sensorium, cranial nerves II-XII grossly intact, normal speech, no gross weakness of arms, no gross weakness of legs. Medical Decision & Procedures ER Provider Diagnostic Interpretation: Radiology results as stated below per my review and the radiologist's interpretation: CHEST ONE VIEW PORTABLE CLINICAL HISTORY: Atypical chest pain COMPARISON STUDY: 08/28/2017 FINDINGS: The cardiac and mediastinal contours are normal. There is no evidence of focal pulmonary consolidation. There is no evidence of failure. No pleural effusions are visualized.[ IMPRESSION: No active disease in the chest. Electronically signed by: Rolly Stock M.D. 09/20/2017 10:11 PM Dictated Date/Time: 09/20/2017 10:11 PM Laboratory Results 09/20/17 21:45 Red Blood Count 4.84, Mean Corpuscular Volume 82.6, Mean Corpuscular Hemoglobin 28.1, Mean Corpuscular Hemoglobin Concent 34.0, Mean Platelet Volume 9.3, Neutrophils (%) (Auto) 61.8, Lymphocytes (%) (Auto) 28.8, Monocytes (%) (Auto) 7.0, Eosinophils (%) (Auto) 2.0, Basophils (%) (Auto) 0.2, Neutrophils # (Auto) 6.13, Lymphocytes # (Auto) 2.86, Monocytes # (Auto) 0.69, Eosinophils # (Auto) 0.20, Basophils # (Auto) 0.02 09/20/17 21:45 Test 09/20/17 21:45 09/20/17 23:06 White Blood Count 9.92 K/uL (4.8-10.8) Red Blood Count 4.84 M/uL (4.2-5.4) Hemoglobin 13.6 g/dL (12.0-16.0) Hematocrit 40.0 % (37-47) Mean Corpuscular Volume 82.6 fL (80-100) Mean Corpuscular Hemoglobin 28.1 pg (25-34) Mean Corpuscular Hemoglobin Concent 34.0 g/dl (32-36) Platelet Count 245 K/uL (130-400) Mean Platelet Volume 9.3 fL (7.4-10.4) Neutrophils (%) (Auto) 61.8 % Lymphocytes (%) (Auto) 28.8 % Monocytes (%) (Auto) 7.0 % Eosinophils (%) (Auto) 2.0 % Basophils (%) (Auto) 0.2 % Neutrophils # (Auto) 6.13 K/uL (1.4-6.5) Lymphocytes # (Auto) 2.86 K/uL (1.2-3.4) Monocytes # (Auto) 0.69 K/uL (0.11-0.59) Eosinophils # (Auto) 0.20 K/uL (0-0.5) Basophils # (Auto) 0.02 K/uL (0-0.2) RDW Standard Deviation 41.3 fL (36.4-46.3) RDW Coefficient of Variation 13.7 % (11.5-14.5) Immature Granulocyte % (Auto) 0.2 % Immature Granulocyte # (Auto) 0.02 K/uL (0.00-0.02) D-Dimer 200 ug/L FEU (0-500) Anion Gap 7.0 mmol/L (3-11) Est Creatinine Clear Calc Drug Dose 140.0 ml/min Estimated GFR () 110.4 Estimated GFR (Non- 95.3 BUN/Creatinine Ratio 22.4 (10-20) Calcium Level 9.3 mg/dl (8.5-10.1) Total Creatine Kinase 68 U/L (26-192) Creatine Kinase MB 0.6 ng/ml (0.5-3.6) Creatine Kinase MB Ratio 0.9 (0-3.0) Troponin I < 0.015 ng/ml (0-0.045) Laboratory results per my review. ECG Indication: weakness Rate (beats per minute): 102 Rhythm: sinus tachycardia Findings: other (normal axis; early R-wave progression) ED Course ED COURSE: Vital signs were reviewed and showed tachycardic. The patients medical record was reviewed The above diagnostic studies were performed and reviewed. ED treatments and interventions as stated above. 2111: The patient was evaluated in room B10. A complete history and physical examination was performed. 2145: I spoke with [employer] regarding the patient's episode on her heart monitor. They state that the patient was in sinus tachycardia at the time of her symptoms. 2307: The patient is doing well and resting comfortably. 2341: Upon reevaluation, the patient is feeling better. I discussed my findings with the patient and she understands and agrees with the treatment plan. Based on the patients age, coexisting illnesses, exam and lab findings the decision to treat as an outpatient was made. The patient remained stable while under my care. The patient appeared well at the time of discharge. Medical Decision Differential diagnoses includes but is not limited to acute coronary syndrome, myocardial infarction, pericarditis, pulmonary embolus, aortic dissection, pneumonia, pneumothorax, musculoskeletal, shingles, esophageal. Patient is a 27-year-old female who presents to ER for chest pain which started at 5 PM tonight. She notes that she felt very woozy. No shortness of breath, arm pain or jaw pain. No history diabetes, hypertension, hyperlipidemia or CAD. No history of sudden in her family at a young age. D-dimer was negative. No previous PEs. CBC along with BMP and troponins were negative 2. Chest x-ray was unremarkable. Patient has a event monitor. I was able to contact the provider/company. They reviewed the monitor and it showed a normal sinus rhythm and intermittent sinus tach. Patient was updated at bedside. With a negative troponin and d-dimer and an unremarkable EKG patient was discharged to follow-up with PCP. Discussed with Pt concerning signs and symptoms to watch out for. Pt was instructed to follow up with their PCP and discussed with the patient their option to return to the ED at anytime for persistent or worsening symptoms. The appropriate anticipatory guidance and out- patient management, including indications for return to the emergency department , were explained at length to the patient and understood. Medication Reconcilliation Current Medication List: was personally reviewed by me Blood Pressure Screening Patient's blood pressure: Normal blood pressure Consults Time Called: 2143 Consulting Physician: Leonila Returned Call: 2145 I spoke with [employer] regarding the patient's episode on her heart monitor. They state that the patient was in sinus tachycardia at the time of her symptoms. Impression Primary Impression: Chest wall pain Scribe Attestation The scribe's documentation has been prepared under my direction and personally reviewed by me in its entirety. I confirm that the note above accurately reflects all work, treatment, procedures, and medical decision making performed by me. Departure Information Dispostion Home / Self-Care Referrals Mickey Pollack III, M.D. (PCP) Forms IMPORTANT VISIT INFORMATION Patient Instructions Chest Pain - [facility], My [facility] Additional Instructions Please follow up with your primary care doctor or if you are a student, [facility] with in the next 24 hours. Any worsening of your symptoms, please return to the ED immediately. This includes any fevers greater than 100.4, worsening pain, chest pain, shortness breath, persistent nausea, vomiting, unable to eat or drink, or any other concerning signs or symptoms from your standpoint.
[2017-09-21 00:25] VITALS: BP 131/83; PULSE 94; O2SAT 100
== END 2017-09-21 00:26 | disposition home or self-care (01) ==
LOC: C.EDB 21:05
DX: R07.89 Other chest pain (principal); F41.9 Anxiety disorder, unspecified; J45.909 Unspecified asthma, uncomplicated; F17.200 Nicotine dependence, unspecified, uncomplicated; Z87.440 Personal history of urinary (tract) infections; Z90.49 Acquired absence of other specified parts of digestive tract; Z98.890 Other specified postprocedural states; Z88.2 Allergy status to sulfonamides; Z80.9 Family history of malignant neoplasm, unspecified; Z83.79 Family history of other diseases of the digestive system; Z82.49 Family history of ischemic heart disease and other diseases of the circulatory system

== ENCOUNTER 2017-11-20 18:59 | Emergency (ER) | payer OTHER ==
[~2017-11-20] VITALS: Ht 175.3 cm; Wt 123.5 kg
[~2017-11-20 18:59] MED LIST changes: +AMT/50 PO
[2017-11-20 19:04] VITALS: TEMP 36.7; Ht 175.3 cm; Wt 123.5 kg
[2017-11-20 20:50] LABS: ISTAT CREATININE 0.7 mg/dl (0.6-1.3); ISTAT HEMOGLOBIN 14.3 g/dl (12.0-16.0); ISTAT IONIZED CALCIUM 1.2 mmol/l (1.12-1.32)
--- NOTE | 2017-11-20 20:53 | DIAGNOSTIC IMAGING REPORT ---
CHEST ONE VIEW PORTABLE CLINICAL HISTORY: Left upper anterior chest pain. COMPARISON STUDY: Chest radiograph September 20, 2017. FINDINGS: Lung volumes are normal. No pneumothorax or pleural effusion is present. Pulmonary vascularity is normal. Lungs are clear. Cardiomediastinal silhouette is normal. IMPRESSION: No acute cardiopulmonary findings. Electronically signed by: Xavier Stapleton M.D. 11/20/2017 8:52 PM Dictated Date/Time: 11/20/2017 8:52 PM
[2017-11-20 20:54] LABS: POINT OF CARE TROPONIN I < 0.030 ng/ml (0-0.045)
--- NOTE | 2017-11-20 20:59 | EMERGENCY ROOM VISIT NOTE ---
History Report prepared by Santana: Yao Alston Under the Supervision of: Dr. Jean Wilson M.D. First contact with patient: 20:12 Chief Complaint: CHEST PAIN Stated Complaint: WENT TO URGENT CARE,CHEST PAIN,FAINTED,ARM FEELS W Nursing Triage Summary: c/o cp and increased hr seen at urgent care and sent here. History of Present Illness The patient is a 27 year old female who presents to the Emergency Room with complaints of constant left side chest pain for the past 4 days. She was referred by Urgent Care prior to arrival. Patient adds that resting and pressure on the front of her chest exacerbates the pain. She denies abdominal pain, joint issues, headache, neck pain, calf pain, and recent travels. Patient adds that she fractured her ankle from falling off a stair a month ago. She states that she fainted the other day as well. Patient states she is out of her Metoprolol medication. She denies taking any other current medications. She adds she does not take control. Source of History: patient Onset: 4 days ago Position: chest (left) Timing: constant Modifying Factors (Worsening): rest, other (Pressure to front of chest) Associated Symptoms: No headache, No neck pain (Patient denies any joint issues or calf pain.), No abdominal pain Review of Systems See HPI for pertinent positives & negatives. A total of 10 systems reviewed and were otherwise negative. Past Medical & Surgical Medical Problems: (1) Abdominal pain (2) Anxiety disorder (3) Asthma (4) Chest pain (5) Chest pain (6) Costochondritis (7) Costochondritis (8) Flu-like symptoms (9) Left wrist pain (10) Pain, dental (11) Urinary tract infection (12) Urinary tract infection (13) Uterine contractions at greater than 20 weeks of gestation Surgical Problems: (1) section (2) History of knee surgery (3) Hx of cholecystectomy Family History Cancer Gallbladder disease Hypertension Lung disease Social History Smoking Status: Current Every Day Smoker Alcohol Use: none Drug Use: none Marital Status: in relationship Housing Status: lives with significant other Occupation Status: employed Current/Historical Medications Scheduled Amitriptyline HCl (Amitriptyline HCl), 50 MG PO HS Scheduled PRN Albuterol Hfa (Ventolin Hfa), 2 PUFFS INH Q4H PRN for Cough or Wheezing Alprazolam (Alprazolam), 0.25 MG PO BID PRN for Anxiety Tramadol HCl (Tramadol HCl), 50 MG PO BID PRN for Pain Allergies Coded Allergies: Sulfa Antibiotics (Verified Allergy, Unknown, SEVERE DROWSINESS A CHILD , 08/28/17) Physical Exam Vital Signs Date Time Temp Pulse Resp B/P (MAP) Pulse Ox O2 Delivery O2 Flow Rate FiO2 11/20/17 21:08 88 16 131/73 97 11/20/17 20:52 88 16 131/73 97 Room Air 11/20/17 20:51 66 11/20/17 19:04 36.7 101 18 151/85 98 Room Air Physical Exam GENERAL: Patient is well appearing and in mild distress. HEENT: No acute trauma, normocephalic atraumatic, mucous membranes moist, no nasal congestion, no scleral icterus. NECK: No stridor, no adenopathy, no meningismus, trachea is midline. LUNGS: No dyspnea. Clear to auscultation and equal bilaterally. No wheeze, no rhonchi. CHEST: Tenderness to palpitation on left side of chest. Worse with left arm movement. HEART: Regular rate and rhythm. No murmurs, rubs, gallops appreciated. ABDOMEN: Soft, nontender, bowel sounds positive, no masses appreciated, no peritonitis. BACK: No midline tenderness, no CVA tenderness EXTREMITIES: Right ankle in walking boot. Normal motion all extremities, no cyanosis, no edema. NEUROLOGIC: Alert and oriented, no acute motor or sensory deficits, no focal weakness, cranial nerves grossly intact. SKIN: No rash, no jaundice, no diaphoresis. Medical Decision & Procedures ER Provider Diagnostic Interpretation: Radiology results and stated below per my review and radiologist interpretation: CHEST ONE VIEW PORTABLE CLINICAL HISTORY: Left upper anterior chest pain. COMPARISON STUDY: Chest radiograph September 20, 2017. FINDINGS: Lung volumes are normal. No pneumothorax or pleural effusion is present. Pulmonary vascularity is normal. Lungs are clear. Cardiomediastinal silhouette is normal. IMPRESSION: No acute cardiopulmonary findings. Electronically signed by: Xavier Stapleton M.D. 11/20/2017 8:52 PM Laboratory Results Test 11/20/17 20:36 11/20/17 20:38 Bedside D-Dimer 225 ng/mlFEU (0-450) Bedside Troponin I < 0.030 ng/ml (0-0.045) Bedside Hemoglobin 14.3 g/dl (12.0-16.0) Bedside Hematocrit 42 % (37-47) Bedside Sodium 141 mEq/L (135-144) Bedside Potassium 4.2 mEq/L (3.3-5.0) Bedside Chloride 104 mEq/L (101-112) Bedside Total CO2 26 mEq/l (24-31) Anion Gap 16.0 mmol/L (16-25) Bedside Blood Urea Nitrogen 17 mg/dl (7-18) Bedside Creatinine 0.7 mg/dl (0.6-1.3) Bedside Glucose (other) 87 mg/dl (70-99) Bedside Ionized Calcium (Christal) 1.20 mmol/l (1.12-1.32) Laboratory results as reviewed by me. ECG Indication: chest pain Rate (beats per minute): 104 Rhythm: sinus tachycardia Findings: no ectopy, other (No ischemia) ED Course 2013: The patient was evaluated in room C10. A complete history and physical exam was performed. 2101: Reevaluated the patient. Discussed results and discharge instructions. She verbalized understanding and agreement. The patient is ready for discharge. Medical Decision Differential: Cardiac Ischemia (STEMI, NSTEMI, Unstable Angina, etc), Aortic Dissection, Arrhythmia, Pulmonary Embolism, Pneumonia, Pneumothorax, MSK, Infectious, Pericarditis/Myocarditis, Esophageal Rupture, Gastrointestinal, amongst other pathologies entertained. 27 yr old female with clearly reproducible TTP over the left upper chest. She however is noting she had syncopal event the other day. EKG unremarkble other than mild tachy. With foot in boot felt that dimer reasonable as no other risks for PE and calf soft/non-tender. Dimer fortunately wnl. Trop negative. Electrolytes OK. Advised follow up with PCP. CP seems very much MSK and it is unclear case of syncope. I will note she admits she has run out of her Tramadol a few days ago as well. Medication Reconcilliation Current Medication List: was personally reviewed by me Blood Pressure Screening Patient's blood pressure: Normal blood pressure Blood pressure disposition: Did not require urgent referral Impression Primary Impression: Left sided chest pain Additional Impression: Syncope Scribe Attestation The scribe's documentation has been prepared under my direction and personally reviewed by me in its entirety. I confirm that the note above accurately reflects all work, treatment, procedures, and medical decision making performed by me. Departure Information Dispostion Home / Self-Care Referrals Mickey Pollack III, M.D. (PCP) Forms HOME CARE DOCUMENTATION FORM, IMPORTANT VISIT INFORMATION Patient Instructions ED Near Syncope Unkn, My [facility] Health Problem Qualifiers Additional Impression: Syncope Syncope type: unspecified Qualified Codes: R55 - Syncope and collapse
[2017-11-20 21:08] VITALS: BP 131/73; PULSE 88; O2SAT 97
== END 2017-11-20 21:05 | disposition home or self-care (01) ==
LOC: C.EDB 19:00 → C.EDC 21:05
DX: R07.9 Chest pain, unspecified (principal); R55 Syncope and collapse; F41.9 Anxiety disorder, unspecified; Z87.440 Personal history of urinary (tract) infections; Z80.9 Family history of malignant neoplasm, unspecified; Z82.49 Family history of ischemic heart disease and other diseases of the circulatory system; Z83.6 Family history of other diseases of the respiratory system; F17.210 Nicotine dependence, cigarettes, uncomplicated

== ENCOUNTER 2017-12-03 13:14 | Emergency (ER) | payer OTHER ==
[~2017-12-03] VITALS: Ht 175.3 cm; Wt 125.3 kg
[2017-12-03 13:19] VITALS: TEMP 36.5; Ht 175.3 cm; Wt 125.3 kg
[2017-12-03] MEDS ORDERED: ALBUT/IPRATROP 3MG/0.5MG NEB 3 ML VIAL INH STA (13:33)
[2017-12-03] MEDS ORDERED: AMT25 PO (13:59)
[2017-12-03] MEDS ORDERED: HYDR-3124 PO (13:59)
--- NOTE | 2017-12-03 14:08 | DIAGNOSTIC IMAGING REPORT ---
CHEST 2 VIEWS ROUTINE CLINICAL HISTORY: cough, fever dyspnea COMPARISON STUDY: 11/20/2017 FINDINGS: The bones soft tissues and hemidiaphragms are normal. The cardiomediastinal silhouette is normal. The lungs are clear. The pulmonary vasculature is normal. IMPRESSION: Negative chest. The above report was generated using voice recognition software. It may contain grammatical, syntax or spelling errors. Electronically signed by: Tai Everett M.D. 12/03/2017 2:06 PM Dictated Date/Time: 12/03/2017 2:06 PM
--- NOTE | 2017-12-03 14:15 | EMERGENCY ROOM VISIT NOTE ---
History First contact with patient: 13:26 Chief Complaint: COUGH Stated Complaint: LUNGS FILLED UP, COUGHING, TEMP, BREATHING PROBLEM History of Present Illness The patient is a 27 year old female who presents to the Emergency Room with complaints of sore throat for the past 5 days. The patient states at first her throat which is scratching at night but now it is sore throughout the entire day. She also had one day 2 days ago that she had a bit a temp of 102.4 no temperature since that time. She has had a cough for the past 5 days which is coming productive with green sputum. The patient has asthma and has been out of her albuterol inhaler for the past 4 days. The patient denies any ear pain or head congestion. The patient has been taking DayQuil and NyQuil without any relief. The patient has not had a treatment today. Review of Systems 10 system review was performed and was negative unless stated otherwise history of present illness. Past Medical/Surgical History Medical Problems: (1) Abdominal pain (2) Anxiety disorder (3) Asthma (4) Chest pain (5) Chest pain (6) Costochondritis (7) Costochondritis (8) Flu-like symptoms (9) Left wrist pain (10) Pain, dental (11) Urinary tract infection (12) Urinary tract infection (13) Uterine contractions at greater than 20 weeks of gestation Surgical Problems: (1) section (2) History of knee surgery (3) Hx of cholecystectomy Family History Cancer Gallbladder disease Hypertension Lung disease Social History Smoking Status: Current Every Day Smoker Alcohol Use: none Drug Use: none Marital Status: in relationship Housing Status: lives with significant other Occupation Status: employed Current/Historical Medications Scheduled Amitriptyline HCl (Amitriptyline HCl), 25 MG PO HS Hydroxyzine Hcl (Atarax), 25 MG PO HS Scheduled PRN Albuterol Hfa (Ventolin Hfa), 2 PUFFS INH Q4H PRN for Cough or Wheezing Alprazolam (Alprazolam), 0.25 MG PO BID PRN for Anxiety Tramadol HCl (Tramadol HCl), 50 MG PO BID PRN for Pain Physical Exam Vital Signs Date Time Temp Pulse Resp B/P (MAP) Pulse Ox O2 Delivery O2 Flow Rate FiO2 12/03/17 13:19 36.5 96 20 112/77 97 Room Air Physical Exam PHYSICAL EXAM: Vital Signs were reviewed: Temperature 36.5, blood pressure 112/ 77, pulse 96, respirations 20 Reviewed Nurse's notes and agree. Oxygen saturation is 97 % on room air which is normal . GENERAL: 27-year-old white female appears in no acute distress. MENTAL STATUS: Alert, oriented, coherent. EARS: Canals clear. TMs good light reflex, no erythema or fluid level noted. NOSE: Nasal mucosa with moderate erythema engorgement. PHARYNX: Moderate erythema, no edema noted. No exudate noted. Airway is adequate. NECK: Supple, non-tender. No lymphadenopathy noted. LUNGS: Patient had scattered rhonchi throughout both lung thomas with complete clearing with cough. CARDIAC: Regular rate and rhythm without murmur. SKIN: No rashes noted. Medical Decision & Procedures ER Provider Diagnostic Interpretation: CHEST 2 VIEWS ROUTINE CLINICAL HISTORY: cough, fever dyspnea COMPARISON STUDY: 11/20/2017 FINDINGS: The bones soft tissues and hemidiaphragms are normal. The cardiomediastinal silhouette is normal. The lungs are clear. The pulmonary vasculature is normal. IMPRESSION: Negative chest. The above report was generated using voice recognition software. It may contain grammatical, syntax or spelling errors. Electronically signed by: Tai Everett M.D. 12/03/2017 2:06 PM Medications Administered Medications (Trade) Dose Ordered Sig/Ev Route Start Time Stop Time Status Last Admin Dose Admin Albuterol/ Ipratropium (Duoneb) 3 ml NOW STAT INH 12/03/17 13:33 12/03/17 13:34 DC 12/03/17 13:37 3 ML ED Course The patient was evaluated. The patient was given a DuoNeb. Rapid strep was negative. Culture is pending. Chest x-ray was ordered interpreted by the radiologist and myself as above without any acute findings. The patient was given a nebulized treatment and was feeling better after the nebulized treatment. The patient was given albuterol inhaler to take with her since she currently does not have one at home and is unsure if she has an active prescription. The patient was discharged home in stable condition.. Medical Decision Differential diagnosis include pneumonia, asthma exacerbation, bronchitis, URI [place] Drug Monitoring Program Search Results: patient reviewed within database Blood Pressure Screening Patient's blood pressure: Normal blood pressure Impression Primary Impression: Acute bronchitis Departure Information Dispostion Home / Self-Care Condition GOOD Referrals Huron, Mickey E.,III,M.D. (PCP) Forms HOME CARE DOCUMENTATION FORM, IMPORTANT VISIT INFORMATION Patient Instructions Bronchitis Acute, My [email or web address] Additional Instructions Push fluids. Rest. Tylenol and/or ibuprofen as needed for fever. Use your albuterol inhaler 2 puffs every 4 hours for the next 5 days. Take over-the- counter Mucinex as directed on the label for 5 days. If you need a cough suppressant only use this at night for sleeping purposes. If symptoms persist or worsen, follow-up with your family doctor. Problem Qualifiers Primary Impression: Acute bronchitis Bronchitis organism: unspecified organism Qualified Codes: J20.9 - Acute bronchitis, unspecified
[2017-12-03] MEDS ORDERED: ALBUTEROL HFA 8 GM INHALER INH ONE (14:45)
[2017-12-03 15:07] VITALS: BP 111/76; PULSE 93; O2SAT 98
== END 2017-12-03 15:09 | disposition home or self-care (01) ==
LOC: C.EDB 13:15
DX: J20.9 Acute bronchitis, unspecified (principal); J45.909 Unspecified asthma, uncomplicated; F17.200 Nicotine dependence, unspecified, uncomplicated; Z82.49 Family history of ischemic heart disease and other diseases of the circulatory system; Z83.6 Family history of other diseases of the respiratory system; Z83.79 Family history of other diseases of the digestive system

== ENCOUNTER 2017-12-11 16:49 | Emergency (ER) | payer SELFPAY ==
[~2017-12-11] VITALS: Ht 175.3 cm; Wt 123.4 kg
[~2017-12-11 16:49] MED LIST changes: -AMT/50 PO; +AMT25 PO; +HYDR-3124 PO
[2017-12-11 16:53] VITALS: TEMP 37; Ht 175.3 cm; Wt 123.4 kg
--- NOTE | 2017-12-11 17:24 | DIAGNOSTIC IMAGING REPORT ---
CHEST ONE VIEW PORTABLE CLINICAL HISTORY: Chest Pain pain COMPARISON STUDY: 12/03/2017 FINDINGS: The bones soft tissues and hemidiaphragms are normal. The cardiomediastinal silhouette is normal. The lungs are clear. The pulmonary vasculature is normal. IMPRESSION: Negative chest. The above report was generated using voice recognition software. It may contain grammatical, syntax or spelling errors. Electronically signed by: Tai Everett M.D. 12/11/2017 5:22 PM Dictated Date/Time: 12/11/2017 5:22 PM
[2017-12-11 17:43] LABS: BASO % 0.4 %; BASO ABS # 0.03 K/uL (0-0.2); EOS % 1.8 %; EOS ABS # 0.13 K/uL (0-0.5); HEMATOCRIT 42.3 % (37-47); HEMOGLOBIN 14.4 g/dL (12.0-16.0); IG# 0.03 K/uL (0.00-0.02); LYMPH % 28.3 %; LYMPH ABS # 2.08 K/uL (1.2-3.4); MEAN CELL VOLUME 83.8 fL (80-100); MEAN CORPUSCULAR HEMOGLOBIN 28.5 pg (25-34); MEAN PLATELET VOLUME 9.1 fL (7.4-10.4); MONO % 5.2 %; MONO ABS # 0.38 K/uL (0.11-0.59); NEUT % 63.9 %; NEUT ABS # 4.69 K/uL (1.4-6.5); PLATELET COUNT 272 K/uL (130-400); RED CELL DISTRIBUTION WIDTH CV 12.8 % (11.5-14.5); RED CELL DISTRIBUTION WIDTH SD 38.4 fL (36.4-46.3); WHITE BLOOD COUNT 7.34 K/uL (4.8-10.8)
[2017-12-11 18:07] LABS: BLOOD UREA NITROGEN 11 mg/dl (7-18); CALCIUM 9.6 mg/dl (8.5-10.1); CARBON DIOXIDE 26 mmol/L (21-32); CREATININE 0.68 mg/dl (0.60-1.20); GLUCOSE 83 mg/dl (70-99); POTASSIUM 4.1 mmol/L (3.5-5.1); SODIUM 135 mmol/L (136-145)
[2017-12-11 18:52] VITALS: BP 126/83; PULSE 103; O2SAT 95
--- NOTE | 2017-12-11 19:52 | EMERGENCY ROOM VISIT NOTE ---
History Report prepared by Santana: Bandar Calzada Under the Supervision of: Dr. Cristi De Jesus D.O. First contact with patient: 16:58 Chief Complaint: CARDIAC ASSESSMENT Stated Complaint: CHEST PAIN, SOB, DIZZY, BACK/SHOULDER PAIN, FATIGU History of Present Illness The patient is a 27 year old female who presents to the Emergency Room with complaints of constant chest pain beginning last night. The patient describes her pain as a feeling of "heaviness". She also complains of shortness of breath , dizziness, hot flashes, abnormal sensations in her left arm, and nausea. She has a history of similar symptoms which have been occurring for four months. Her most recent episode before last night was two days ago. The patient has a Holter monitor for which she has had in place for 43 days. She states that she happened to not have the Holter monitor on during the past several episodes. Pt denies headache, fevers, vomiting, diarrhea, pain with urination, and melena. Her LNMP was four months ago which is normal for her. She denies recent travel, antibiotic use, or trauma. The patient has no history of blood clots. Source of History: patient Onset: Yesterday Position: chest Quality: other ("heaviness") Timing: constant Associated Symptoms: + SOB, + nausea, No fevers, No headache, No vomiting, No melena, No diarrhea, No urinary symptoms Note: Additional symptoms: hot flashes, dizziness and abnormal sensations in her left arm. Review of Systems See HPI for pertinent positives & negatives. A total of 10 systems reviewed and were otherwise negative. Past Medical & Surgical Medical Problems: (1) Abdominal pain (2) Anxiety disorder (3) Asthma (4) Chest pain (5) Chest pain (6) Costochondritis (7) Costochondritis (8) Flu-like symptoms (9) Left wrist pain (10) Pain, dental (11) Urinary tract infection (12) Urinary tract infection (13) Uterine contractions at greater than 20 weeks of gestation Surgical Problems: (1) section (2) History of knee surgery (3) Hx of cholecystectomy Family History Cancer Gallbladder disease Hypertension Lung disease Social History Smoking Status: Current Every Day Smoker Alcohol Use: none Drug Use: none Marital Status: in relationship Housing Status: lives with significant other Occupation Status: employed Current/Historical Medications Scheduled Amitriptyline HCl (Amitriptyline HCl), 25 MG PO HS Hydroxyzine Hcl (Atarax), 25 MG PO HS Scheduled PRN Albuterol Hfa (Ventolin Hfa), 2 PUFFS INH Q4H PRN for Cough or Wheezing Alprazolam (Alprazolam), 0.25 MG PO BID PRN for Anxiety Tramadol HCl (Tramadol HCl), 50 MG PO BID PRN for Pain Allergies Coded Allergies: Sulfa Antibiotics (Verified Allergy, Unknown, SEVERE DROWSINESS A CHILD , 12/11/17) Physical Exam Vital Signs Date Time Temp Pulse Resp B/P (MAP) Pulse Ox O2 Delivery O2 Flow Rate FiO2 12/11/17 18:52 103 126/83 95 12/11/17 18:19 89 16 115/84 100 Room Air 12/11/17 17:19 96 Room Air 12/11/17 16:53 37.0 104 20 131/76 95 Room Air Physical Exam GENERAL: Sitting up in bed, alert, anxious appearing, well nourished, no distress, non-toxic EYE EXAM: normal conjunctiva. PERRL and EOM's intact. OROPHARYNX: no exudate, no erythema, lips, buccal mucosa, and tongue normal and mucous membranes are moist NECK: supple, no nuchal rigidity, no adenopathy, non-tender LUNGS: Clear to auscultation. Normal chest wall mechanics HEART: no murmurs, S1 normal and S2 normal CHEST: reproducible left anterior chest wall pain. ABDOMEN: abdomen soft, non-tender, normo-active bowel sounds, no masses, no rebound or guarding. BACK: Back is symmetrical on inspection and there is no deformity, no midline tenderness, no CVA tenderness. SKIN: no rashes and no bruising UPPER EXTREMITIES: upper extremities are grossly normal. LOWER EXTREMITIES: No pitting edema. NEURO EXAM: Normal sensorium, cranial nerves II-XII grossly intact, normal speech, no gross weakness of arms, no gross weakness of legs. Medical Decision & Procedures ER Provider Diagnostic Interpretation: Radiology results as stated below per my review and the radiologist's interpretation: CHEST ONE VIEW PORTABLE FINDINGS: The bones soft tissues and hemidiaphragms are normal. The cardiomediastinal silhouette is normal. The lungs are clear. The pulmonary vasculature is normal. IMPRESSION: Negative chest. The above report was generated using voice recognition software. It may contain grammatical, syntax or spelling errors. Electronically signed by: Tai Everett M.D. 12/11/2017 5:22 PM Laboratory Results 12/11/17 17:35 Red Blood Count 5.05, Mean Corpuscular Volume 83.8, Mean Corpuscular Hemoglobin 28.5, Mean Corpuscular Hemoglobin Concent 34.0, Mean Platelet Volume 9.1, Neutrophils (%) (Auto) 63.9, Lymphocytes (%) (Auto) 28.3, Monocytes (%) (Auto) 5.2, Eosinophils (%) (Auto) 1.8, Basophils (%) (Auto) 0.4, Neutrophils # (Auto) 4.69, Lymphocytes # (Auto) 2.08, Monocytes # (Auto) 0.38, Eosinophils # (Auto) 0.13, Basophils # (Auto) 0.03 12/11/17 17:35 Test 12/11/17 17:35 White Blood Count 7.34 K/uL (4.8-10.8) Red Blood Count 5.05 M/uL (4.2-5.4) Hemoglobin 14.4 g/dL (12.0-16.0) Hematocrit 42.3 % (37-47) Mean Corpuscular Volume 83.8 fL (80-100) Mean Corpuscular Hemoglobin 28.5 pg (25-34) Mean Corpuscular Hemoglobin Concent 34.0 g/dl (32-36) Platelet Count 272 K/uL (130-400) Mean Platelet Volume 9.1 fL (7.4-10.4) Neutrophils (%) (Auto) 63.9 % Lymphocytes (%) (Auto) 28.3 % Monocytes (%) (Auto) 5.2 % Eosinophils (%) (Auto) 1.8 % Basophils (%) (Auto) 0.4 % Neutrophils # (Auto) 4.69 K/uL (1.4-6.5) Lymphocytes # (Auto) 2.08 K/uL (1.2-3.4) Monocytes # (Auto) 0.38 K/uL (0.11-0.59) Eosinophils # (Auto) 0.13 K/uL (0-0.5) Basophils # (Auto) 0.03 K/uL (0-0.2) RDW Standard Deviation 38.4 fL (36.4-46.3) RDW Coefficient of Variation 12.8 % (11.5-14.5) Immature Granulocyte % (Auto) 0.4 % Immature Granulocyte # (Auto) 0.03 K/uL (0.00-0.02) Anion Gap 4.0 mmol/L (3-11) Est Creatinine Clear Calc Drug Dose 174.8 ml/min Estimated GFR () 138.9 Estimated GFR (Non- 119.9 BUN/Creatinine Ratio 16.0 (10-20) Calcium Level 9.6 mg/dl (8.5-10.1) Troponin I < 0.015 ng/ml (0-0.045) Laboratory results per my review. ECG Indication: chest pain Rate (beats per minute): 89 Rhythm: sinus rhythm Findings: no ectopy, other (Normal axis. Early R-wave progression. ) ED Course ED COURSE: Vital signs were reviewed and showed tachycardia. The patients medical record was reviewed The above diagnostic studies were performed and reviewed. ED treatments and interventions as stated above. 1705: The patient was evaluated in room B8. A complete history and physical examination was performed. 1826: I spoke with Gabe from the monitoring center. He was unable to find any recent transmissions from the patient's Holter monitor. 1832: Upon reevaluation, the patient is resting comfortably.I discussed my findings with the patient and she understands and agrees with the treatment plan. Based on the patients age, coexisting illnesses, exam and lab findings the decision to treat as an outpatient was made. The patient remained stable while under my care. The patient appeared well at the time of discharge. Medical Decision Differential diagnoses includes but is not limited to acute coronary syndrome, myocardial infarction, pericarditis, pulmonary embolus, aortic dissection, pneumonia, pneumothorax, musculoskeletal, shingles, esophageal. Patient is a 27-year-old female who has been seen here multiple times for palpitations and left-sided chest pain. She notes the symptoms have been present since this past September. She has had a monitor in place for over 45 days. Troponin was negative with chest pain that has been present since 11 PM last night. No cardiac or PE risk factors with the exception of smoking. She was evaluated for PEs before on previous visits and workup was unremarkable/d- dimer was negative. Will not pursue as her symptoms are completely identical to previous presentations. Called cardio net and they had no current transmission or recent transmission from her monitor. EKG was unremarkable. Updated patient bedside. Her chest pain is purely muscle skeletal. Recommended following up with PCP as an outpatient. Discussed with Pt concerning signs and symptoms to watch out for. Pt was instructed to follow up with their PCP and discussed with the patient their option to return to the ED at anytime for persistent or worsening symptoms. The appropriate anticipatory guidance and out-patient management, including indications for return to the emergency department, were explained at length to the patient and understood. Medication Reconcilliation Current Medication List: was personally reviewed by me Blood Pressure Screening Patient's blood pressure: Normal blood pressure Blood pressure disposition: Did not require urgent referral Impression Primary Impression: Chest pain Scribe Attestation The scribe's documentation has been prepared under my direction and personally reviewed by me in its entirety. I confirm that the note above accurately reflects all work, treatment, procedures, and medical decision making performed by me. Departure Information Dispostion Home / Self-Care Referrals Mickey Pollack III, M.D. (PCP) Forms IMPORTANT VISIT INFORMATION Patient Instructions Chest Pain - [facility], ED Chest Pain Atypical Unkn Cause, My [facility] Additional Instructions Please follow up with your primary care doctor with in the next 24 hours. Any worsening of your symptoms, please return to the ED immediately. This includes any fevers greater than 100.4, worsening pain, chest pain, shortness breath, persistent nausea, vomiting, unable to eat or drink, or any other concerning signs or symptoms from your standpoint. Problem Qualifiers Primary Impression: Chest pain Chest pain type: unspecified Qualified Codes: R07.9 - Chest pain, unspecified
== END 2017-12-11 18:53 | disposition home or self-care (01) ==
LOC: C.EDB 16:51
DX: R07.89 Other chest pain (principal); Z45.09 Encounter for adjustment and management of other cardiac device; J45.909 Unspecified asthma, uncomplicated; F17.200 Nicotine dependence, unspecified, uncomplicated; Z82.49 Family history of ischemic heart disease and other diseases of the circulatory system; Z83.79 Family history of other diseases of the digestive system; Z83.6 Family history of other diseases of the respiratory system

== ENCOUNTER 2017-12-29 13:05 | Emergency (ER) | payer SELFPAY ==
[~2017-12-29] VITALS: Ht 167.6 cm; Wt 124.3 kg
[2017-12-29 13:14] VITALS: TEMP 37; Ht 167.6 cm; Wt 124.3 kg
[2017-12-29] MEDS ORDERED: ALPRAZOLAM 0.25 MG TAB PO STA ×3 (13:21→16:25)
[2017-12-29 13:39] VITALS: O2SAT 98
[2017-12-29] MEDS ORDERED: KETOROLAC TROMETHAMINE 30 MG/ML VIAL IV STA (13:45)
--- NOTE | 2017-12-29 13:48 | DIAGNOSTIC IMAGING REPORT ---
CHEST ONE VIEW PORTABLE CLINICAL HISTORY: Chest pain. COMPARISON STUDY: Chest radiograph December 11, 2017. FINDINGS: Lung volumes are normal. Lungs are clear. No pneumothorax or pleural effusion is noted. Cardiomediastinal silhouette is normal. Pulmonary vascularity is normal. The appearance of the chest is unchanged. IMPRESSION: No acute cardiopulmonary findings. Electronically signed by: Xavier Stapleton M.D. 12/29/2017 1:46 PM Dictated Date/Time: 12/29/2017 1:46 PM
[2017-12-29 14:00] LABS: HEMATOCRIT 39.4 % (37-47); HEMOGLOBIN 13.4 g/dL (12.0-16.0); MEAN CELL VOLUME 84.4 fL (80-100); MEAN CORPUSCULAR HEMOGLOBIN 28.7 pg (25-34); MEAN PLATELET VOLUME 9.6 fL (7.4-10.4); PLATELET COUNT 222 K/uL (130-400); RED CELL DISTRIBUTION WIDTH CV 13.1 % (11.5-14.5); RED CELL DISTRIBUTION WIDTH SD 39.8 fL (36.4-46.3); WHITE BLOOD COUNT 8.92 K/uL (4.8-10.8)
[2017-12-29 14:16] LABS: BLOOD UREA NITROGEN 19 mg/dl (7-18); CALCIUM 8.9 mg/dl (8.5-10.1); CARBON DIOXIDE 23 mmol/L (21-32); CREATININE 0.65 mg/dl (0.60-1.20); GLUCOSE 94 mg/dl (70-99); POTASSIUM 3.9 mmol/L (3.5-5.1); SODIUM 137 mmol/L (136-145)
--- NOTE | 2017-12-29 16:34 | EMERGENCY ROOM VISIT NOTE ---
History First contact with patient: 13:14 Chief Complaint: CHEST PAIN Stated Complaint: CHEST PAIN Nursing Triage Summary: patient with history of anxiety and has been out of medication for two weeks. has been having episode of chest tightness with hot flashes associated and pain in the chest to the left side of her arm. states she was at work today and felt hot and then cold and drugged and felt faint and she got scared and went to [facility]. they did an EKG and sent for evaluation. History of Present Illness The patient is a 27 year old female who presents to the Emergency Room via private vehicle with complaints of "chest pain". The patient states that she has a history of anxiety, and has been without her medication Xanax for 2 weeks secondary to losing her insurance. She states that earlier today while at work she states that she felt a sensation of hot followed by cold and then felt very dizzy and always passed out. She states that her heart will race at times and then she notes that she had short of breath. She notes chest pain at this time the described as sharp. She denies any history of blood clots or heart attacks. She has been worked up for such in the past. She does smoke. She has had an event monitor on in the past but no longer at this time. She rates her overall pain as a 9/10. Review of Systems A complete 10-point Review of Systems was discussed with the patient, with pertinent positives and negatives listed in the History of Present Illness. All remaining Review of Systems questions can be considered negative unless otherwise specified. Past Medical/Surgical History Medical Problems: (1) Abdominal pain (2) Anxiety disorder (3) Asthma (4) Chest pain (5) Chest pain (6) Costochondritis (7) Costochondritis (8) Flu-like symptoms (9) Left wrist pain (10) Pain, dental (11) Urinary tract infection (12) Urinary tract infection (13) Uterine contractions at greater than 20 weeks of gestation Surgical Problems: (1) section (2) History of knee surgery (3) Hx of cholecystectomy Family History Cancer Gallbladder disease Hypertension Lung disease Social History Smoking Status: Current Every Day Smoker Alcohol Use: none Drug Use: none Marital Status: in relationship Housing Status: lives with significant other Occupation Status: employed Current/Historical Medications Scheduled Amitriptyline HCl (Amitriptyline HCl), 25 MG PO HS Hydroxyzine Hcl (Atarax), 25 MG PO HS Scheduled PRN Albuterol Hfa (Ventolin Hfa), 2 PUFFS INH Q4H PRN for Cough or Wheezing Alprazolam (Alprazolam), 0.25 MG PO BID PRN for Anxiety Tramadol HCl (Tramadol HCl), 50 MG PO BID PRN for Pain Physical Exam Vital Signs Date Time Temp Pulse Resp B/P (MAP) Pulse Ox O2 Delivery O2 Flow Rate FiO2 12/29/17 14:59 97 18 131/73 98 Room Air 12/29/17 13:39 98 Room Air 12/29/17 13:32 94 12/29/17 13:14 37.0 99 20 134/80 98 Room Air 12/29/17 13:14 96 Physical Exam VITAL SIGNS - Vital signs and nursing notes were reviewed. Stable. GENERAL -27-year-old female appearing her stated age who is in no acute distress. Communicates well with provider and answers questions appropriately. SKIN - Without rashes. No petechia or meningeal rash. HEAD - NC/AT. EYES - Sclera anicteric. EARS - No deformities of external structures noted on gross examination bilaterally. NOSE - Midline and without cyanosis. No epistaxis or purulent drainage noted. MOUTH/OROPHARYNX - Without perioral cyanosis. LUNGS - Chest wall symmetric without accessory muscle use, intercostals retractions, or central cyanosis. Normal vesicular breath sounds CTA B/L. No wheezes, rales, or rhonchi appreciated. CARDIAC - RRR with S1/S2. No murmur, rubs, or gallops appreciated. NEUROLOGIC - Cranial nerves II through XII grossly intact. Sensory intact to light touch throughout. PSYCH - A&O, and cooperates fully with examiner. Pt is very pleasant and interacts well with examiner. Medical Decision & Procedures ER Provider Diagnostic Interpretation: [~ rep ct add3]] CHEST ONE VIEW PORTABLE CLINICAL HISTORY: Chest pain. COMPARISON STUDY: Chest radiograph December 11, 2017. FINDINGS: Lung volumes are normal. Lungs are clear. No pneumothorax or pleural effusion is noted. Cardiomediastinal silhouette is normal. Pulmonary vascularity is normal. The appearance of the chest is unchanged. IMPRESSION: No acute cardiopulmonary findings. Electronically signed by: Xavier Stapleton M.D. 12/29/2017 1:46 PM Dictated Date/Time: 12/29/2017 1:46 PM Laboratory Results 12/29/17 13:30 12/29/17 13:30 Test 12/29/17 13:30 12/29/17 15:05 12/29/17 15:50 Red Blood Count 4.67 M/uL (4.2-5.4) Mean Corpuscular Volume 84.4 fL (80-100) Mean Corpuscular Hemoglobin 28.7 pg (25-34) Mean Corpuscular Hemoglobin Concent 34.0 g/dl (32-36) RDW Standard Deviation 39.8 fL (36.4-46.3) RDW Coefficient of Variation 13.1 % (11.5-14.5) Mean Platelet Volume 9.6 fL (7.4-10.4) Anion Gap 8.0 mmol/L (3-11) Est Creatinine Clear Calc Drug Dose 175.0 ml/min Estimated GFR () 141.0 Estimated GFR (Non- 121.7 BUN/Creatinine Ratio 28.9 (10-20) Calcium Level 8.9 mg/dl (8.5-10.1) Urine Test NEG (NEG) Troponin I < 0.015 ng/ml (0-0.045) Medications Administered Medications (Trade) Dose Ordered Sig/Ev Route Start Time Stop Time Status Last Admin Dose Admin Alprazolam (Xanax Tab) 0.25 mg NOW STAT PO 12/29/17 13:21 12/29/17 13:23 DC 12/29/17 13:42 0.25 MG Ketorolac Tromethamine (Toradol Inj) 30 mg NOW STAT IV 12/29/17 13:45 12/29/17 13:46 DC 12/29/17 13:48 30 MG Alprazolam (Xanax Tab) 0.25 mg NOW STAT PO 12/29/17 16:25 12/29/17 16:27 DC 12/29/17 16:46 0.25 MG Alprazolam (Xanax Tab) 0.25 mg NOW STAT PO 12/29/17 16:25 12/29/17 16:27 DC 12/29/17 16:46 0.25 MG Medical Decision Patient was seen and evaluated as above. She presents to us today with chest pain. It is atypical in nature, and is reproducible on exam with palpation of the anterior chest. I do not suspect CA or PE. She has been here numerous times for identical symptoms. She notes this is no different than previous. She has had a monitor on for events in the past, has had negative d-dimer's as well as negative CT scans of the chest or coronary embolism. I do not suspect that workup needs to go in the direction of PE, given this is the presentation she has had in the past, I do not believe that workup in this direction will be of benefit. No risk factors other than smoking. She ran out of her Xanax prescription 2 weeks ago secondary to insurance. I suspect this is likely anxiety as well as perhaps muscular skeletal strain/costochondritis. She was given Toradol here and Xanax. She was feeling better. Chest x-ray normal. There is no evidence on patient's EKG of any cardiac event. Per my interpretation the first EKG reveals normal sinus rhythm, rate of 94 bpm, with a repeat being normal sinus rhythm with a rate of 84 bpm. There is prolonged QT on the repeat EKG which she is to follow with the family doctor for and was informed upon. CBC unremarkable, CMP reveals evidence of dehydration but no evidence of kidney failure. Troponin negative 2. Urine test negative. Patient was monitored here. She'll be given 2 tablets of Xanax for home for her anxiety noting that she cannot fill her prescription secondary to losing her insurance. She does not appear to have any withdrawal of benzodiazepines. She was educated upon management, educated upon worrisome symptoms in which to return, had questions answered prior to discharge, and was discharged home in good condition. Case was discussed with the attending physician. In evaluation treatment this patient following differential diagnoses entertained: CA, PE, costochondritis, pericarditis, among others. Impression Primary Impression: Chest wall pain Departure Information Dispostion Home / Self-Care Condition GOOD Referrals Mickey Pollack III, M.D. (PCP) Patient Instructions My [facility] Additional Instructions You have been treated in the Emergency Department your chest Pain. Laboratory results and imaging studies have ruled out any emergent causes for your chest pain which would warrant admission or surgery. You repeat EKG here does have QT prolongation which I recommend following up with the family doctor for. You have been given a few Xanax to be used for as needed anxiety given the ear not able to fill your prescription. This is a narcotic medication. You cannot drive or consume alcohol while on this medicine. This medicine should only be used for pain that cannot be controlled with [id number] pain medicines. For pain control, you can use the following [id number] medicines (if >12 yo): - Regular strength (325mg/tab) Tylenol (acetaminophen) 2 tabs every 4-6 hours as needed. Do not exceed 12 tablets in a 24 hour period. Avoid taking more than 3 grams (3000 mg) of Tylenol per day. This includes any other sources of acetaminophen you may take on a regular basis. - Regular strength (200 mg/tab) Advil (ibuprofen) 1-2 tabs every 4-6 hours as needed. Do not exceed a dose of 3200 mg per day. Drink plenty of water and stay well hydrated. You are dehydrated as per blood work. As with any trip to the Emergency Department, you should follow-up with your Primary Care Provider from today's visit. Please return with any new/concerning symptoms.
[2017-12-29 16:50] VITALS: BP 117/80; PULSE 97; O2SAT 98
== END 2017-12-29 17:17 | disposition home or self-care (01) ==
LOC: EDBD 13:05 → C.EDA 13:06
DX: R07.89 Other chest pain (principal); F41.9 Anxiety disorder, unspecified; F17.210 Nicotine dependence, cigarettes, uncomplicated; J45.909 Unspecified asthma, uncomplicated; Z87.440 Personal history of urinary (tract) infections; Z90.49 Acquired absence of other specified parts of digestive tract; Z80.9 Family history of malignant neoplasm, unspecified; Z82.49 Family history of ischemic heart disease and other diseases of the circulatory system; Z79.899 Other long term (current) drug therapy

== ENCOUNTER 2017-12-30 22:34 | Emergency (ER) | payer SELFPAY ==
[~2017-12-30] VITALS: Ht 175.3 cm; Wt 123.0 kg
[2017-12-30 22:43] VITALS: TEMP 36.8; Ht 175.3 cm; Wt 123.0 kg
[2017-12-30] MEDS ORDERED: KETOROLAC TROMETHAMINE 60 MG/2 ML VIAL IM STA (22:59)
[2017-12-30] MEDS ORDERED: KETOROLAC TROMETHAMINE 30 MG/ML VIAL IV STA (23:09)
--- NOTE | 2017-12-30 23:41 | EMERGENCY ROOM VISIT NOTE ---
History Report prepared by Santana: Justin Mayo Under the Supervision of: Dr. Ruperto Espinoza D.O. First contact with patient: 22:37 Chief Complaint: CHEST PAIN Stated Complaint: CHEST PAIN History of Present Illness The patient is a 27 year old female who presents to the Emergency Room with complaints of chest pain that started 30 minutes. She states that she was at the ED yesterday and was told to see her cotton jammer. She states that she felt warm and fuzzy and felt the cramping chest pain. Source of History: patient Onset: 30 minutes ago Position: chest Quality: cramping Timing: constant Associated Symptoms: + chest pain Note: Patient had the same chest pain she had yesterday when she was at the ED. Review of Systems See HPI for pertinent positives & negatives. A total of 10 systems reviewed and were otherwise negative. Past Medical & Surgical Medical Problems: (1) Abdominal pain (2) Anxiety disorder (3) Asthma (4) Chest pain (5) Chest pain (6) Costochondritis (7) Costochondritis (8) Flu-like symptoms (9) Left wrist pain (10) Pain, dental (11) Urinary tract infection (12) Urinary tract infection (13) Uterine contractions at greater than 20 weeks of gestation Surgical Problems: (1) section (2) History of knee surgery (3) Hx of cholecystectomy Family History Cancer Gallbladder disease Hypertension Lung disease Social History Smoking Status: Current Every Day Smoker Alcohol Use: none Drug Use: none Marital Status: in relationship Housing Status: lives with significant other Occupation Status: employed Current/Historical Medications Scheduled Amitriptyline HCl (Amitriptyline HCl), 25 MG PO HS Hydroxyzine Hcl (Atarax), 25 MG PO HS Scheduled PRN Albuterol Hfa (Ventolin Hfa), 2 PUFFS INH Q4H PRN for Cough or Wheezing Alprazolam (Alprazolam), 0.25 MG PO BID PRN for Anxiety Tramadol HCl (Tramadol HCl), 50 MG PO BID PRN for Pain Allergies Coded Allergies: Sulfa Antibiotics (Verified Allergy, Unknown, SEVERE DROWSINESS A CHILD , 12/30/17) Physical Exam Vital Signs Date Time Temp Pulse Resp B/P (MAP) Pulse Ox O2 Delivery O2 Flow Rate FiO2 12/30/17 23:19 98 22 95 12/30/17 23:04 100 19 113/70 95 2/4/18 22:49 97 22 97 Room Air 12/30/17 22:44 96 12/30/17 22:43 36.8 96 20 122/74 97 Room Air 12/30/17 22:43 96 Room Air 12/30/17 22:42 122/74 Physical Exam CONSTITUTIONAL/VITAL SIGNS: Reviewed / noted above. GENERAL: Non-toxic in appearance. INTEGUMENTARY: Warm, dry, and [place]. HEAD: Normocephalic. EYES: without scleral icterus or trauma. ENT/OROPHARYNX: clear and moist. LYMPHADENOPATHY/NECK: Is supple without lymphadenopathy or meningismus. RESPIRATORY: Lungs clear and equal. CARDIOVASCULAR: Regular rate and rhythm. GI/ABDOMEN: Soft and nontender. No organomegaly or pulsatile mass. No rebound or guarding. Normal bowel sounds. EXTREMITIES: Warm and well perfused. BACK: No CVA tenderness. NEUROLOGICAL: Intact without focal deficits. PSYCHIATRIC: normal affect. MUSCULOSKELETAL: Normally developed with good muscle tone. Medical Decision & Procedures Medications Administered Medications (Trade) Dose Ordered Sig/Ev Route Start Time Stop Time Status Last Admin Dose Admin Ketorolac Tromethamine (Toradol Inj) 30 mg NOW STAT IV 12/30/17 23:09 12/30/17 23:10 DC 12/30/17 23:14 30 MG ECG Indication: chest pain Rate (beats per minute): 90 Rhythm: normal sinus Findings: no ectopy, other (No acute injury) Change: Patient's EKG interpreted by me. ED Course 2240: Previous medical records were reviewed. The patient was evaluated in room A2. A complete history and physical examination was performed. 2259: Toradol Inj 60 mg IV. 2309: Toradol Inj 30 mg IV. 2345: On reevaluation, the patient is doing well. I discussed the results and findings with the patient. She verbalized agreement of the treatment plan. The patient was discharged home. Medical Decision the differential was considered includes acute myocardial infarction, acute coronary syndrome, myocarditis, pericarditis, pericardial effusions /tamponade, esophageal perforation, thoracic aortic dissection, pulmonary embolism, pneumonia, pneumothorax, pancreatitis, shingles, acute cholecystitis, perforated abdominal viscus. This is a 27-year-old female who presents to the ED with a chief complaint of chest pain. The patient reports a fuzzy feeling in her chest and some cramping in her chest that started about 20 minutes prior to arrival. Details listed above. She was here about 24 hours ago for the same symptoms. She had a complete workup at that time. Nothing significant was found at that time. The patient was evaluated. Her exam was unremarkable. Vital signs are stable. EKG shows a normal sinus rhythm. The patient was given a shot of Toradol IV for her symptoms. On reassessment, she was feeling better. She states that she feels tired willing to home. She was discharged. Medication Reconcilliation Current Medication List: was personally reviewed by me Blood Pressure Screening Patient's blood pressure: Normal blood pressure Blood pressure disposition: Did not require urgent referral Impression Primary Impression: Anxiety attack Additional Impression: Precordial chest pain Scribe Attestation The scribe's documentation has been prepared under my direction and personally reviewed by me in its entirety. I confirm that the note above accurately reflects all work, treatment, procedures, and medical decision making performed by me. Departure Information Dispostion Home / Self-Care Referrals Mickey Pollack III, M.D. (PCP) Patient Instructions [facility] Additional Instructions Follow-up with your doctor for further care and evaluation in 1-2 days. Return to the emergency department for worsening or new symptoms or any concerns. You have been examined and treated today on an emergency basis only. This is not a substitute for, or an effort to provide, complete comprehensive medical care. It is impossible to recognize and treat all injuries or illnesses in a single emergency department visit. It is therefore important that you follow up closely with your doctor. Call as soon as possible for an appointment. Problem Qualifiers
[2017-12-31 00:08] VITALS: BP 109/74; PULSE 86; O2SAT 97
== END 2017-12-31 00:12 | disposition home or self-care (01) ==
LOC: EDBD 22:34 → C.EDA 22:34
DX: F41.9 Anxiety disorder, unspecified (principal); J45.909 Unspecified asthma, uncomplicated; Z87.440 Personal history of urinary (tract) infections; Z90.49 Acquired absence of other specified parts of digestive tract; Z79.899 Other long term (current) drug therapy; Z80.9 Family history of malignant neoplasm, unspecified; Z82.49 Family history of ischemic heart disease and other diseases of the circulatory system; Z84.1 Family history of disorders of kidney and ureter; F17.210 Nicotine dependence, cigarettes, uncomplicated

== ENCOUNTER 2018-03-29 17:19 | Emergency (ER) | payer OTHER ==
[~2018-03-29] VITALS: Ht 175.3 cm; Wt 124.9 kg
[~2018-03-29 17:19] MED LIST changes: -ULT50 PO; -VNTHFA/IN INH; -XNX25 PO
[2018-03-29 17:24] VITALS: BP 135/79; TEMP 37.2; Ht 175.3 cm; Wt 124.9 kg
[2018-03-29] MEDS ORDERED: CIPR1SUS5 OTL (18:02)
--- NOTE | 2018-03-29 18:02 | EMERGENCY ROOM VISIT NOTE ---
ED Visit Note First contact with patient: 17:29 CHIEF COMPLAINT: Bilateral ear pain 3 days HISTORY OF PRESENT ILLNESS: Patient is a 27-year-old female who presents the emergency department for evaluation of bilateral ear pain, left worse than right. She states her symptoms started with left ear pain 3 days ago, she has noticed some drainage coming from that ear. Her right ear started to hurt today. She was seen at [facility] yesterday and diagnosed with ear infections, and placed on amoxicillin, she is only had 24 hours of antibiotics on board. She is tried taking aspirin and Tylenol PM without relief. She complains of pain and muffled hearing., She rates her discomfort a 10/10. REVIEW OF SYSTEMS: Review of systems as per HPI. All other systems reviewed were negative. 10 systems reviewed. PMH: Electronic medical records are reviewed and summarized as above/below. See Problem List. SOCIAL HISTORY: Patient lives at home. Smoker. PHYSICAL EXAM: Vital Signs: Reviewed Nurse's notes. MENTAL STATUS: Tearful, nontoxic-appearing 27-year-old female who is awake and alert and in moderate distress due to her stated complaint. HEAD: Atraumatic, without temporal or scalp tenderness. EYES: PERRL, EOMI, no discharge or injection. EARS: Examination of the right ear notes no tragal or auricular motion tenderness. Canal is patent. TM is slightly erythematous, with small effusion noted. No bulging or loss of landmarks. Examination of the left ear notes positive tragal and auricular motion tenderness. The external canal is swollen , with purulent drainage noted. Tympanic membrane visualized does not note any perforation, purulent effusion is noted. There is no pain, swelling or erythema over the mastoids bilaterally. MOUTH: Mucous membranes moist, no lesions, tongue and gums appear normal. THROAT: No pharyngeal injection, exudates, or tonsillar hypertrophy. Airway is patent. NECK: Supple, nontender, left-sided posterior cervical chain lymphadenopathy noted. HEART: Regular rate and rhythm without murmurs, ectopy, gallops, or rubs. LUNGS: Clear to auscultation and breath sounds equal, no wheezes, rales, or rhonchi. SKIN: Normal. NEUROLOGICAL: Sensory and motor functions grossly intact. Normal gait. ED course: The patient was seen and assessed as above. She presents the emergency department complaining of bilateral ear pain, left worse than right, previously diagnosed with otitis media on amoxicillin. She has drainage and discharge consistent with otitis externa from the left ear. I cannot appreciate a TM perforation. She is apparently covered with amoxicillin. She was placed on Cipro drops for the otitis externa. Canal is patent and does not require a wick. She does not have any evidence for mastoiditis. The patient was prepared for discharge. She then requested something for pain. She was given Toradol 60 mg IM. The patient is on a no narcotics treatment policy at this facility due to prior drug-seeking behavior. Patient was reviewed in the [facility] Prescription Drug Monitoring Program, she receives regular tramadol and Xanax prescriptions from her PCP, last filled was in January. She was reminded of this and told that she would not receive narcotics from our facility. She would need to get any pain medications from her primary care provider. She was discharged after the Toradol rating her pain an 8/10. Medication reconciliation: I attest that I have personally reviewed the patient' s current medication list. Blood pressure screening : Patient was found to have normal blood pressure on screening and does not require follow-up. Problem List Medical Problems: (1) Abdominal pain Status: Resolved (2) Anxiety disorder Status: Chronic (3) Asthma Status: Chronic (4) Chest pain Status: Resolved (5) Chest pain Status: Resolved (6) Costochondritis Status: Resolved (7) Costochondritis Status: Resolved (8) Flu-like symptoms Status: Resolved (9) Left wrist pain Status: Resolved (10) Pain, dental Status: Resolved (11) Urinary tract infection Status: Resolved (12) Urinary tract infection Status: Resolved Surgical Problems: (1) section Status: Resolved (2) History of knee surgery Status: Resolved (3) Hx of cholecystectomy Status: Resolved Current/Historical Medications Scheduled Amoxicillin & Pot Clavulanate (Augmentin 875-125 mg), 1 TAB PO BID Ciprofloxacin (Otic) (Otiprio), 4 DROPS OTL TID Scheduled PRN Albuterol Hfa (Ventolin Hfa), 2 PUFFS INH Q4H PRN for Cough or Wheezing Alprazolam (Alprazolam), 0.25 MG PO DAILY PRN for Anxiety Hydroxyzine Hcl (Atarax), 50 MG PO QID PRN for Anxiety Tramadol HCl (Tramadol HCl), 50 MG PO BID PRN for Pain Allergies Coded Allergies: Sulfa Antibiotics (Verified Allergy, Unknown, SEVERE DROWSINESS A CHILD , 12/30/17) Vital Signs Date Time Temp Pulse Resp B/P (MAP) Pulse Ox O2 Delivery O2 Flow Rate FiO2 03/29/18 18:54 94 16 96 03/29/18 17:24 37.2 114 18 135/79 96 Room Air Medications Administered Medications (Trade) Dose Ordered Sig/Ev Route Start Time Stop Time Status Last Admin Dose Admin Ketorolac Tromethamine (Toradol Inj) 60 mg NOW STAT IM 03/29/18 19:00 03/29/18 19:01 DC 03/29/18 19:06 60 MG Departure Information Impression Primary Impression: Left otitis externa Additional Impression: Bilateral otitis media Prescriptions Ciprofloxacin (Otic) (Otiprio) 6 % Ariana 4 DROPS OTL TID, #1 BTL Prov: Mariela Hilliard PA 03/29/18 Referrals Mickey Pollack III, M.D. (PCP) Patient Instructions [facility] Additional Instructions Cipro ear drops 4 drops in the left ear 3 times daily for 7 days. Finish amoxicillin as previously prescribed. Keep the ear clean and dry when showering- used an ear plug to keep water out of the ear if necessary. Ibuprofen(Motrin, Advil) may be used for fever or pain. Use 600mg every six hours as needed. Take with food. Avoid using more than 2400mg in a 24 hour period. Do not use 2400mg per day for more than three consecutive days without physician direction. Prolonged inappropriate use can lead to stomach upset or ulcers. (AND/OR) Acetaminophen(Tylenol) may be used for fever or pain. Use 1000mg every six hours as needed. Avoid using more than 3000mg in a 24 hour period. Follow up with your primary care physician if your symptoms are not improving. Problem Qualifiers
[2018-03-29] MEDS ORDERED: AMOX875T PO (18:33)
[2018-03-29] MEDS ORDERED: HYDR-3126 PO (18:33)
[2018-03-29 18:54] VITALS: PULSE 94; O2SAT 96
[2018-03-29] MEDS ORDERED: KETOROLAC TROMETHAMINE 60 MG/2 ML VIAL IM STA (19:00)
[2018-03-29] MEDS ORDERED: ULT50 PO (21:49)
[2018-03-29] MEDS ORDERED: XNX25 PO (21:49)
[2018-03-29] MEDS ORDERED: VNTHFA/IN INH (21:49)
== END 2018-03-29 18:52 | disposition home or self-care (01) ==
LOC: C.EDB 17:20 → C.EDD 18:52
DX: H60.92 Unspecified otitis externa, left ear (principal); H66.93 Otitis media, unspecified, bilateral; Z88.2 Allergy status to sulfonamides